=== PATIENT | female | born 1945 | race Caucasian/White ===

== ENCOUNTER → 2016-03-20 | Outpatient (CLI) | payer OTHER ==
--- NOTE | 2016-03-20 09:58 | MA ---
Diagnostic Digital Mammogram left Breast Clinical Indications: Followup asymmetry and possible architectural distortion outer left breast. Technique: Compression was obtained in CC, XCCL, and 90-degree lateral views of the left breast. Thi s examination is processed by the [employer] computer-aided detection system. Comparison: February 29, 2016; November 21, 2012; and studies dating back to September 19, 2007 Breast density: C; The breasts are heterogeneously dense, which may obscure small masses. Findings: CAD was reviewed. The density of concern appears to represent normal overlapping breast parenchymal tissue. No signifi cant abnormality seen. Impression: Benign findings. BI-RADS 2. These findings were communicated with the patient. Recommendation: Routine annual mammography is recommended in one year. Dense mammographic pattern limits the sensitivity of mammography in this patient. If there is a clini bernabe palpable abnormality, recommend additional imaging with ultrasound, if clinically indicated. [facility] will send a result letter to the patient. Negative mammography should not preclude additional workup of a clinically suspicious finding.
== END ==
LOC: BRMIMAGING 09:20
PROVIDERS: ATTEND Internal Medicine Hematology & Oncology
DX: R92.8 Other abnormal and inconclusive findings on diagnostic imaging of breast (principal); C90.01 Multiple myeloma in remission
CPT/HCPCS: G0206

== ENCOUNTER → 2017-01-11 | Outpatient (CLI) | payer OTHER ==
[~2017-01-11] MED LIST: ACETAMINOPHEN 325 MG TAB PO ONE; diphenhydrAMINE 25 MG CAP PO ONE
== END ==
LOC: FOBOP 10:10
PROVIDERS: ATTEND Internal Medicine Hematology & Oncology
PROC: 30233R1 Transfusion of Nonautologous Platelets into Peripheral Vein, Percutaneous Approach (ICD-10-PCS; principal; 2017-01-11)
DX: C90.00 Multiple myeloma not having achieved remission (principal)
CPT/HCPCS: 36430; Q9988

== ENCOUNTER 2017-01-19 19:31 | Outpatient (CLI) | payer OTHER ==
[2017-01-19] MEDS ORDERED: NS 100 ML BAG (MINI-BAG) IV ONE (19:52)
== END 2017-01-19 20:25 | disposition home or self-care (01) ==
LOC: FOBOP 19:31
PROVIDERS: ATTEND Internal Medicine Hematology & Oncology
PROC: 30243R1 Transfusion of Nonautologous Platelets into Central Vein, Percutaneous Approach (ICD-10-PCS; principal; 2017-01-19)
DX: C90.00 Multiple myeloma not having achieved remission (principal)
CPT/HCPCS: 36430; P9037; 86905-90; 99001-90

== ENCOUNTER 2017-01-23 16:21 | Outpatient (CLI) | payer OTHER ==
[2017-01-23] MEDS: ACETAMINOPHEN 325 MG TAB PO ONE (16:46)
[2017-01-23] MEDS: diphenhydrAMINE 25 MG CAP PO ONE (16:47)
== END 2017-01-23 17:35 | disposition home or self-care (01) ==
LOC: FOBOP 16:21
PROVIDERS: ATTEND Internal Medicine Hematology & Oncology
PROC: 30233R1 Transfusion of Nonautologous Platelets into Peripheral Vein, Percutaneous Approach (ICD-10-PCS; principal; 2017-01-23)
DX: C90.00 Multiple myeloma not having achieved remission (principal); D69.6 Thrombocytopenia, unspecified; E78.00 Pure hypercholesterolemia, unspecified; I82.4Z9 Acute embolism and thrombosis of unspecified deep veins of unspecified distal lower extremity
CPT/HCPCS: 36430; P9037

== ENCOUNTER 2017-01-26 16:19 | Outpatient (CLI) | payer OTHER | END 2017-01-26 18:00 | disposition home or self-care (01) | LOC: FOBOP 16:19 | PROVIDERS: ATTEND Internal Medicine Hematology & Oncology | PROC: 30233N1 Transfusion of Nonautologous Red Blood Cells into Peripheral Vein, Percutaneous Approach (ICD-10-PCS; principal; 2017-01-26) | DX: C90.00 Multiple myeloma not having achieved remission (principal) | CPT/HCPCS: 36430; Q9988 ==

== ENCOUNTER 2017-01-30 17:54 | Outpatient (CLI) | payer OTHER ==
[2017-01-30] MEDS ORDERED: ACETAMINOPHEN 325 MG TAB PO ONE (18:15)
[2017-01-30] MEDS ORDERED: diphenhydrAMINE 25 MG CAP PO ONE (18:15)
[2017-01-30 18:48] VITALS: BP 93/58; PULSE 75; RESP 16; TEMP 98.4; O2SAT 99
== END 2017-01-30 20:05 | disposition home or self-care (01) ==
LOC: FOBOP 17:54
PROVIDERS: ATTEND Internal Medicine Hematology & Oncology
PROC: 30233R1 Transfusion of Nonautologous Platelets into Peripheral Vein, Percutaneous Approach (ICD-10-PCS; principal; 2017-01-30)
DX: C90.00 Multiple myeloma not having achieved remission (principal); D69.6 Thrombocytopenia, unspecified; E78.00 Pure hypercholesterolemia, unspecified; I82.409 Acute embolism and thrombosis of unspecified deep veins of unspecified lower extremity
CPT/HCPCS: 36430; P9037

== ENCOUNTER 2017-02-02 16:55 | Outpatient (CLI) | payer OTHER ==
[2017-02-02] MEDS ORDERED: ACETAMINOPHEN 325 MG TAB PO ONE (17:15)
[2017-02-02] MEDS ORDERED: diphenhydrAMINE 25 MG CAP PO ONE (17:15)
== END 2017-02-02 18:55 | disposition home or self-care (01) ==
LOC: FOBOP 16:55
PROVIDERS: ATTEND Internal Medicine Hematology & Oncology
PROC: 30233R1 Transfusion of Nonautologous Platelets into Peripheral Vein, Percutaneous Approach (ICD-10-PCS; principal; 2017-02-02)
DX: C90.00 Multiple myeloma not having achieved remission (principal)
CPT/HCPCS: 36430; Q9988

== ENCOUNTER 2017-02-18 12:04 | Observation (INO) | payer OTHER ==
--- NOTE | 2017-02-18 12:12 | EDPHY ---
H & P Time Seen by Provider: 02/18/17 12:11 HPI/ROS: CHIEF COMPLAINT: Referred to ED for thrombocytopenia HISTORY OF PRESENT ILLNESS: The patient presents emergency department at the request of her oncologist for evaluation of thrombocytopenia. She has a history of multiple myeloma. The patient does require occasional platelet transfusions. She is status post stem cell transplant. She is scheduled to undergo an elective port placement tomorrow by Dr. Bennett. The patient reportedly had a platelet count of less than 5000 noted earlier today. The patient denies any symptoms of active bleeding. She does report chronic bruising. The patient denies fever, cough or congestion. The patient is scheduled to get a daily dose of Decadron today. The patient is chronically on Coumadin which she has been off for the past week. She has been using Lovenox daily. REVIEW OF SYSTEMS: A comprehensive 10 point review of systems is otherwise negative aside from elements mentioned in the history of present illness. Source: Patient Exam Limitations: No limitations - Personal History Tetanus Vaccine Date: less than 5 years - Medical/Surgical History Hx Asthma: No Hx Chronic Respiratory Disease: No Hx Diabetes: No Hx Cardiac Disease: No Hx Renal Disease: No Hx Cirrhosis: No Hx Alcoholism: No Hx HIV/AIDS: No Hx Splenectomy or Spleen Trauma: No Other PMH: multiple myloma, PE (1994 and 1996), gallbladder out feb 2014, rotator cuff surgery. FACTOR FIVE LEIDEN - Social History Smoking Status: Never smoked - Physical Exam Exam: General Appearance: Alert, no distress Eyes: Pupils equal and round no pallor or injection ENT, Mouth: Mucous membranes moist Respiratory: There are no retractions, lungs are clear to auscultation Cardiovascular: Regular rate and rhythm Gastrointestinal: Abdomen is soft and nontender, no masses, bowel sounds normal Neurological: A&O, normal motor function, normal sensory exam, normal cranial nerves Skin: Areas of ecchymosis of varying age Musculoskeletal: Neck is supple nontender Extremities: symmetrical, full range of motion Constitutional: Initial Vital Signs Temperature (C) 36.4 C 02/18/17 12:18 Heart Rate 90 02/18/17 12:18 Respiratory Rate 16 02/18/17 12:18 Blood Pressure 117/78 02/18/17 12:18 O2 Sat (%) 99 02/18/17 12:18 O2 Delivery Mode Room Air Allergies/Adverse Reactions: No Known Allergies Allergy (Unverified 03/27/09 19:56) Home Medications: Medication Instructions Recorded Acetaminophen [Tylenol 325mg (*)] 325 mg PO Q6 PRN 02/18/17 Acyclovir [Zovirax 400 mg (*)] 400 mg PO BID 02/18/17 Cholecalciferol Vit D3 [Vitamin D3 1,000 units PO DAILY 02/18/17 (*)] Dexamethasone [Decadron 4 MG (*)] 40 mg PO LOWE 02/18/17 Warfarin Sodium [Coumadin 1MG (*)] 1 mg PO SUMOTUWETHFR@16 02/18/17 Warfarin Sodium [Coumadin 5MG (*)] 5 mg PO SUMOTUTHFRSA@16 02/18/17 Warfarin Sodium [Coumadin 5MG (*)] 5 mg PO WE@02/18/17 Medical Decision Making ED Course/Re-evaluation: I discussed the patient with Dr. Manuel Alejo. The patient will be transfused 1 irradiated unit of platelets. If the patient's platelet count continues to be below 50,000 she will need an additional 1 U of irradiated platelets. The patient will be admitted to the hospital for these transfusions today. She is scheduled to undergo port placement tomorrow. Dr. Bennett be notified of the patient's admission to the hospital. Differential Diagnosis: Differential diagnosis considered includes critical anemia, thrombocytopenia, hemorrhage - Data Points Laboratory Results: Laboratory Results 02/18/17 12:50 02/18/17 02/18/17 12:50 12:50 WBC 2.77 10^3/uL L 10^3/uL (3.80-9.50) RBC 3.20 10^6/uL L 10^6/uL (4.18-5.33) Hgb 10.3 g/dL L g/dL (12.6-16.3) Hct 29.6 % L % (38.0-47.0) MCV 92.5 fL fL (81.5-99.8) MCH 32.2 pg pg (27.9-34.1) MCHC 34.8 g/dL g/dL (32.4-36.7) RDW 14.6 % % (11.5-15.2) Plt Count 4 10^3/uL L* 10^3/uL (150-400) MPV 10.3 fL fL (8.7-11.7) Neut % (Auto) 59.2 % % (39.3-74.2) Lymph % (Auto) 25.3 % % (15.0-45.0) [place] % (Auto) 13.7 % H % (4.5-13.0) Eos % (Auto) 0.7 % % (0.6-7.6) Baso % (Auto) 0.4 % % (0.3-1.7) Nucleat RBC Rel Count 0.0 % % (0.0-0.2) Absolute Neuts (auto) 1.64 10^3/uL L 10^3/uL (1.70-6.50) Absolute Lymphs (auto) 0.70 10^3/uL L 10^3/uL (1.00-3.00) Absolute Monos (auto) 0.38 10^3/uL 10^3/uL (0.30-0.80) Absolute Eos (auto) 0.02 10^3/uL L 10^3/uL (0.03-0.40) Absolute Basos (auto) 0.01 10^3/uL L 10^3/uL (0.02-0.10) Absolute Nucleated RBC 0.00 10^3/uL 10^3/uL (0-0.01) Immature Gran % 0.7 % % (0.0-1.1) Immature Gran # 0.02 10^3/uL 10^3/uL (0.00-0.10) Platelet Estimate Pending Smear Review By Pending Sodium Pending Potassium Pending Chloride Pending Carbon Dioxide Pending Anion Gap Pending BUN Pending Creatinine Pending Estimated GFR Pending Glucose Pending Calcium Pending Departure - Departure Disposition: [facility] Inpatient Acute Clinical Impression: Thrombocytopenia, Multiple myeloma Condition: Fair
[2017-02-18 13:07] LABS: % IMMATURE GRANULYOCYTES 0.7 % (0.0-1.1); ABSOLUTE IMMATURE GRANULOCYTES 0.02 10^3/uL (0.00-0.10); ADD DIFF? NO; ADD MORPH? NO; ADD SCAN? NO; ATYPICAL LYMPHOCYTE FLAG 0 (0-99); FRAGMENT RBC FLAG 0 (0-99); HEMATOCRIT 29.6 % (38.0-47.0); HEMOGLOBIN 10.3 g/dL (12.6-16.3); LEFT SHIFT FLG 0 (0-99); LIPEMIA HEMOLYSIS FLAG 90 (0-99); MEAN CELL HEMOGLOBIN 32.2 pg (27.9-34.1); MEAN CELL HEMOGLOBIN CONCENTR. 34.8 g/dL (32.4-36.7); MEAN CELL VOLUME 92.5 fL (81.5-99.8); MEAN PLATELET VOLUME 10.3 fL (8.7-11.7); PLATELET CLUMPS FLAG 0 (0-99); RED CELL DISTRIBUTION WIDTH 14.6 % (11.5-15.2)
[2017-02-18 13:11] LABS: PLATELET COUNT 4 10^3/uL (150-400)
[2017-02-18] MEDS ORDERED: ONDANSETRON 4 MG/2 ML VIAL IVP PRN (13:35)
[2017-02-18] MEDS ORDERED: ONDANSETRON DISINTEGRATING 4 MG TAB PO PRN (13:35)
[2017-02-18] MEDS ORDERED: ACETAMINOPHEN 325 MG TAB PO PRN (13:35)
[2017-02-18] MEDS ORDERED: DEXAMETHASONE 4 MG TAB PO SCH (13:45)
[2017-02-18 13:47] LABS: ANION GAP 15 mEq/L (8-16); CALCIUM 9.4 mg/dL (8.5-10.4); CARBON DIOXIDE 21 mEq/l (22-31); CHLORIDE 107 mEq/L (97-110); CREATININE 1.2 mg/dL (0.6-1.0); GLOMERULAR FILTRATION RATE 45; GLUCOSE 101 mg/dL (70-100); POTASSIUM 3.6 mEq/L (3.5-5.2); SODIUM 143 mEq/L (134-144)
[2017-02-18 14:20] LABS: PLATELET ESTIMATE DECREASED (ADEQ)
--- NOTE | 2017-02-18 15:54 | PDGENHP ---
History and Physical - Chief Complaint low platelets - History of Present Illness 71 yo female with h/o multiple myeloma presents to ED due to low platelets. She is scheduled to have a PORT placed tomorrow and had blood work today in preparation for that. Her platelet count is found to be 4K and is she admitted for transfusion in preparation for PORT. She denies any bleeding. No fevers/ chills. No CP, SOB, abdominal pain, N/V/D. History Information - Allergies/Home Medication List Allergies/Adverse Reactions: No Known Allergies Allergy (Unverified 03/27/09 19:56) Home Medications: Acetaminophen [Tylenol 325mg (*)] 325 mg PO Q6 PRN 02/18/17 [Last Taken Unknown] Acyclovir [Zovirax 400 mg (*)] 400 mg PO BID 02/18/17 [Last Taken 02/18/17] Cholecalciferol Vit D3 [Vitamin D3 (*)] 1,000 units PO DAILY 02/18/17 [Last Taken 02/18/17] Dexamethasone [Decadron 4 MG (*)] 40 mg PO LOWE 02/18/17 [Last Taken 02/11/17] Warfarin Sodium [Coumadin 1MG (*)] 1 mg PO SUMOTUWETHFR@16 02/18/17 [Last Taken 02/11/17] Warfarin Sodium [Coumadin 5MG (*)] 5 mg PO SUMOTUTHFRSA@16 02/18/17 [Last Taken 02/11/17] Warfarin Sodium [Coumadin 5MG (*)] 5 mg PO WE@02/18/17 [Last Taken 02/07/17] I have personally reviewed and updated: family history, medical history, social history, surgical history - Past Medical History pulmonary embolism Additional medical history: Multiple myeloma. Factor V Leiden heterozygote. PE in 1994 and 1996. Chronic anticoagulation, currently held. Thrombocytopenia requiring repeat transfusions - Surgical History Reports: cholecystectomy Additional surgical history: rotator cuff surgery, hand surgery - Family History Additional family history: Mom with h/o blood clots. 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 . Review of Systems Review of Systems: ROS: 10pt was reviewed & negative except for what was stated in HPI & below Physical Exam Physical Exam: Temp Pulse Resp BP Pulse Ox 36.9 C 93 18 116/68 98 02/18/17 15:44 02/18/17 15:44 02/18/17 15:44 02/18/17 13:57 02/18/17 15:44 Constitutional: no apparent distress Eyes: PERRL Ears, Nose, Mouth, Throat: moist mucous membranes Cardiovascular: regular rate and rhythym, no murmur, rub, or gallop Respiratory: no respiratory distress, clear to auscultation Gastrointestinal: normoactive bowel sounds, soft, non-tender abdomen Skin: warm Musculoskeletal: full muscle strength Neurologic: AAOx3 Psychiatric: interacting appropriately Lab Data & Imaging Review 02/18/17 12:50 02/18/17 12:50 WBC 2.77 10^3/uL (3.80-9.50) L 02/18/17 12:50 RBC 3.20 10^6/uL (4.18-5.33) L 02/18/17 12:50 Hgb 10.3 g/dL (12.6-16.3) L 02/18/17 12:50 Hct 29.6 % (38.0-47.0) L 02/18/17 12:50 MCV 92.5 fL (81.5-99.8) 02/18/17 12:50 MCH 32.2 pg (27.9-34.1) 02/18/17 12:50 MCHC 34.8 g/dL (32.4-36.7) 02/18/17 12:50 RDW 14.6 % (11.5-15.2) 02/18/17 12:50 Plt Count 4 10^3/uL (150-400) L* 02/18/17 12:50 MPV 10.3 fL (8.7-11.7) 02/18/17 12:50 Neut % (Auto) 59.2 % (39.3-74.2) 02/18/17 12:50 Lymph % (Auto) 25.3 % (15.0-45.0) 02/18/17 12:50 [place] % (Auto) 13.7 % (4.5-13.0) H 02/18/17 12:50 Eos % (Auto) 0.7 % (0.6-7.6) 02/18/17 12:50 Baso % (Auto) 0.4 % (0.3-1.7) 02/18/17 12:50 Nucleat RBC Rel Count 0.0 % (0.0-0.2) 02/18/17 12:50 Absolute Neuts (auto) 1.64 10^3/uL (1.70-6.50) L 02/18/17 12:50 Absolute Lymphs (auto) 0.70 10^3/uL (1.00-3.00) L 02/18/17 12:50 Absolute Monos (auto) 0.38 10^3/uL (0.30-0.80) 02/18/17 12:50 Absolute Eos (auto) 0.02 10^3/uL (0.03-0.40) L 02/18/17 12:50 Absolute Basos (auto) 0.01 10^3/uL (0.02-0.10) L 02/18/17 12:50 Absolute Nucleated RBC 0.00 10^3/uL (0-0.01) 02/18/17 12:50 Immature Gran % 0.7 % (0.0-1.1) 02/18/17 12:50 Immature Gran # 0.02 10^3/uL (0.00-0.10) 02/18/17 12:50 Platelet Estimate DECREASED (ADEQ) L 02/18/17 12:50 Sodium 143 mEq/L (134-144) 02/18/17 12:50 Potassium 3.6 mEq/L (3.5-5.2) 02/18/17 12:50 Chloride 107 mEq/L (97-110) 02/18/17 12:50 Carbon Dioxide 21 mEq/l (22-31) L 02/18/17 12:50 Anion Gap 15 mEq/L (8-16) 02/18/17 12:50 BUN 13 mg/dL (7-23) 02/18/17 12:50 Creatinine 1.2 mg/dL (0.6-1.0) H 02/18/17 12:50 Estimated GFR 45 02/18/17 12:50 Glucose 101 mg/dL (70-100) H 02/18/17 12:50 Calcium 9.4 mg/dL (8.5-10.4) 02/18/17 12:50 Patient ABO/Rh A POSITIVE 02/18/17 11:13 Assessment & Plan Assessment: Multiple myeloma (Acute) - Followed by Osiris Mcclain. Plans for PORT tomorrow, need plts >50K. Check INR. NPO after midnight. Thrombocytopenia (Acute) - No e/o bleeding. 1 u irradiated platelets now and check plt count at 1800. If <50K, will need additional 1 u platelets. Goal is plt count >50 K by am. H/O PE x2 in the - heterozygous FVL. Coumadin held and pt had been taking Lovenox shots at home. This is also held due to profoundly low platelets. Resume Lovenox when plts >50K. CKD - Cr at baseline Full code Dispo - obs
[2017-02-18 17:48] LABS: INR 1.01 (0.83-1.16); PROTIME(PATIENT) 13.5 SEC (12.0-15.0)
[2017-02-18 17:51] LABS: PLATELET COUNT 37 10^3/uL (150-400)
[2017-02-18 18:08] LABS: PLATELET ESTIMATE DECREASED (ADEQ)
[2017-02-18] MEDS: ACYCLOVIR 400 MG TAB PO SCH (20:36)
[2017-02-19 04:56] LABS: % IMMATURE GRANULYOCYTES 0.7 % (0.0-1.1); ABSOLUTE IMMATURE GRANULOCYTES 0.02 10^3/uL (0.00-0.10); ADD DIFF? NO; ADD MORPH? NO; ADD SCAN? NO; ATYPICAL LYMPHOCYTE FLAG 0 (0-99); FRAGMENT RBC FLAG 0 (0-99); HEMOGLOBIN 9.4 g/dL (12.6-16.3); LEFT SHIFT FLG 0 (0-99); LIPEMIA HEMOLYSIS FLAG 90 (0-99); MEAN CELL HEMOGLOBIN 31.6 pg (27.9-34.1); MEAN CELL HEMOGLOBIN CONCENTR. 34.8 g/dL (32.4-36.7); MEAN CELL VOLUME 90.9 fL (81.5-99.8); MEAN PLATELET VOLUME 9.8 fL (8.7-11.7); PLATELET CLUMPS FLAG 0 (0-99); RED BLOOD CELL COUNT 2.97 10^6/uL (4.18-5.33); RED CELL DISTRIBUTION WIDTH 14.4 % (11.5-15.2)
[2017-02-19 05:05] LABS: PLATELET COUNT 20 10^3/uL (150-400)
[2017-02-19 05:43] LABS: PLATELET ESTIMATE DECREASED (ADEQ)
[2017-02-19] MEDS ORDERED: BUPIVACAINE 0.25% 30 ML SDV ONE (08:06)
[2017-02-19] MEDS ORDERED: LR 1,000 ML IV ONE (08:47)
[2017-02-19] MEDS ORDERED: MIDAZOLAM 2 MG/2 ML VIAL IVP ONE (09:26)
[2017-02-19] MEDS ORDERED: ceFAZolin 2 GM/SWFI 2 GM/20 ML SYR IVP ONE (09:26)
--- NOTE | 2017-02-19 09:26 | PDHPUP ---
History & Physical Update H&P update statement: This history and physical update is based on an assessment of the patient which was completed after admission or registration (within 24 hours), but prior to the surgery/procedure. H&P update: H&P reviewed & patient examined, no change in patient's condition since H&P completed
--- NOTE | 2017-02-19 09:28 | PDANEPAE ---
ANE History of Present Illness multiple myeloma ANE Past Medical History - Cardiovascular History Hx Hypertension: No Hx Arrhythmias: No Hx Chest Pain: No Hx Coronary Artery / Peripheral Vascular Disease: No Hx CHF / Valvular Disease: No Hx Palpitations: No - Pulmonary History Hx COPD: No Hx Asthma/Reactive Airway Disease: No Hx Recent Upper Respiratory Infection: No Hx Oxygen in Use at Home: No Hx Sleep Apnea: No Sleep Apnea Screening Result - Last Documented: Negative - Neurologic History Hx Cerebrovascular Accident: No Hx Seizures: No Hx Dementia: No - Endocrine History Hx Diabetes: No Hypothyroid: No Hyperthyroid: No Obesity: no - Renal History Hx Renal Disorders: No - Liver History Hx Hepatic Disorders: No - Neurological & Psychiatric Hx Hx Neurological and Psychiatric Disorders: No - Cancer History Hx Cancer: Yes Cancer History Comment: MULTIPLE MYLOMA - Congenital Disorder History Hx Congenital Disorders: Yes Congenital History Comment: FACTOR 5 LEIDEN MUTATION - GI History GERD: no Hx Gastrointestinal Disorders: No - Chronic Pain History Chronic Pain: No - Surgical History Prior Surgeries: ROTATOR CUFF, SHYANNE,KNEE SURG HAND SURG ANE Review of Systems Review of Systems: - Exercise capacity METS (RN): 5 METS ANE Patient History - Allergies Allergies/Adverse Reactions: No Known Allergies Allergy (Unverified 03/27/09 19:56) - Home Medications Home Medications: Acetaminophen [Tylenol 325mg (*)] 325 mg PO Q6 PRN 02/18/17 [Last Taken Unknown] Acyclovir [Zovirax 400 mg (*)] 400 mg PO BID 02/18/17 [Last Taken 02/18/17] Cholecalciferol Vit D3 [Vitamin D3 (*)] 1,000 units PO DAILY 02/18/17 [Last Taken 02/18/17] Dexamethasone [Decadron 4 MG (*)] 40 mg PO LOWE 02/18/17 [Last Taken 02/11/17] Warfarin Sodium [Coumadin 1MG (*)] 1 mg PO SUMOTUWETHFR@16 02/18/17 [Last Taken 02/11/17] Warfarin Sodium [Coumadin 5MG (*)] 5 mg PO SUMOTUTHFRSA@16 02/18/17 [Last Taken 02/11/17] Warfarin Sodium [Coumadin 5MG (*)] 5 mg PO WE@16 02/18/17 [Last Taken 02/07/17] - NPO status NPO Since - Liquids (Date): 02/19/17 NPO Since - Liquids (Time): 00:00 NPO Since - Solids (Date): 02/18/17 NPO Since - Solids (Time): 20:00 - Anes Hx Anes Hx: no prior problems - Smoking Hx Smoking Status: Never smoked - Alcohol Use Alcohol Use: None - Family Anes Hx Family Anes Hx: none Family Hx Anesthesia Complications: NONE ANE Labs/Vital Signs - Labs Result Diagrams: 02/19/17 07:30 02/18/17 12:50 - Vital Signs Blood Pressure: 111/99 Heart Rate: 88 Respiratory Rate: 17 O2 Sat (%): 97 Height: 160.02 cm Weight: 49.1 kg ANE Physical Exam - Airway Neck exam: FROM Mallampati Score: Class 1 Mouth exam: normal dental/mouth exam - Pulmonary Pulmonary: no respiratory distress, no rales or rhonchi, clear to auscultation - Cardiovascular Cardiovascular: regular rate and rhythym, systolic murmur - ASA Status ASA Status: II (III/ NATALY) ANE Anesthesia Plan Anesthesia Plan: GA w LMA
[2017-02-19] MEDS ORDERED: ACETAMINOPHEN 500 MG TAB PO PRN (10:03)
[2017-02-19] MEDS ORDERED: HYDROCODONE/APAP 5/325 TAB PO PRN (10:03)
[2017-02-19] MEDS ORDERED: LR 500 ML IV PRN (10:03)
[2017-02-19] MEDS ORDERED: NALOXONE HCL 0.4 MG/ML INJ IVP PRN (10:03)
[2017-02-19] MEDS ORDERED: OXYCODONE/APAP 5/325 TAB PO PRN (10:03)
[2017-02-19] MEDS ORDERED: ONDANSETRON 4 MG/2 ML VIAL IVP PRN (10:03)
[2017-02-19] MEDS ORDERED: fentaNYL 100 MCG/2 ML INJ IVP PRN (10:03)
[2017-02-19] MEDS ORDERED: PROMETHAZINE HCL 25 MG/ML INJ IVP PRN (10:03)
--- NOTE | 2017-02-19 10:30 | POSTOPPROG ---
Post Op Note Date of Operation: 02/19/17 Surgeon: Glenn Bennett Anesthesiologist: Gamaliel Anesthesia: LMA Pre-op Diagnosis: Multiple Myeloma Post-op Diagnosis: same Procedure: L IJ guided Infusaport placement with fluoro Findings: good placement Inf/Abcess present in the surg proc area at time of surgery?: No EBL: Minimal
--- NOTE | 2017-02-19 10:42 | POSTANESTH ---
Post Anesthetic Evaluation Cardiovascular Status: Normal, Stable Respiratory Status: Normal, Stable Level of Consciousness/Mental Status: Can Participate in Eval Pain Control: Adequate, Prn Tx Ordered Nausea/Vomiting Control: Adequate, Prn Tx Ordered Complications Possibly Related to Anesthesia: None Noted
[2017-02-19] MEDS: ACYCLOVIR 400 MG TAB PO SCH (12:39)
[2017-02-19 12:43] VITALS: BP 110/68; PULSE 87; RESP 17; TEMP 98; O2SAT 94
--- NOTE | 2017-02-19 13:22 | ASMTCMCOM ---
CM Note CM Note Notes: Patient had a Port placed and is scheduled to discharge home today with no additional Case management needs apparent at this time. Date Signed: 02/19/2017 01:21 PM Electronically Signed By:JAMES Browning
--- NOTE | 2017-02-19 13:46 | GOP ---
[f rep st] OPERATIVE REPORT DATE OF OPERATION: 02/19/2017 SURGEON: Glenn Bennett MD ANESTHESIA: General endotracheal provided by Beverley Alston DO. PREOPERATIVE DIAGNOSIS: Multiple myeloma. POSTOPERATIVE DIAGNOSIS: Multiple myeloma. PROCEDURE PERFORMED: Ultrasound-guided left internal jugular vascular access port placement with flu oroscopic guidance. FINDINGS: Successful cannulation of the left IJ with appropriate placement of port. SPECIMENS: None. ESTIMATED BLOOD LOSS: 10 cc. DESCRIPTION OF PROCEDURE: The patient was greeted in the preoperative suite. Once again, risks, sera efits, and alternatives were discussed. Consent was signed. She was then brought back to the operat sakshi suite, placed on the OR table in supine position. After all anesthesia machines, including SCDs, were on and functioning, a World Health Organization time-out was performed. After successful induc tion of anesthesia, the patient's left neck was prepped and draped in typical sterile fashion. I khurram ntified the left internal jugular vein using the ultrasound probe and successfully cannulated it thro ugh which I placed my guidewire over which I placed my peel-away sheath. Once successfully in, I cre ated a pocket approximately 2 fingerbreadths below the patient's left clavicle and tunneled the roger ter to my stick site. It was then placed through the peel-away catheter and successfully sized appro priately in the atriocaval junction. After successful sizing, I trimmed the catheter and attached th e port itself. It was then placed within the pocket. It both flowed and withdrew appropriately. It was appropriately heparin locked it was attached to the underlying chest wall with a single interrup gela Prolene suture medially. The pocket was then closed with 3-0 Vicryl and 4-0 Monocryl over which Dermabond was placed. Patient was then gently awoken and taken to the PACU in satisfactory condition . DRAINS: None. COUNTS: All counts were reported as correct x2. /[id number]/MODL
--- NOTE | 2017-02-20 04:58 | GDS ---
[f rep st] DISCHARGE SUMMARY DISCHARGE DIAGNOSES: 1. Multiple myeloma. 2. Thrombocytopenia. 3. History of pulmonary embolism. 4. Chronic anticoagulation, currently interrupted for port placement. 5. Status post port placement. 6. Chronic kidney disease, currently at baseline. CONSULTANTS: Dr. Glenn Bennett, General Surgery. PROCEDURES: Ultrasound-guided left internal jugular vascular access port placement with fluoroscopic guidance, February 19, 2017, by Dr. Glenn Bennett. HISTORY: For details, please see the history and physical dated February 18, 2017. In brief, the riya hansen is a 71-year-old female with history of multiple myeloma, currently under treatment by Dr. Do Mcclain, who was admitted to the hospital the evening before a planned port placement due to thrombocyt openia and need for platelet transfusion. HOSPITAL COURSE: Patient was admitted to the cancer care unit. Her platelets on arrival were 4000. She had no evidence of bleeding. She was given a total of 2 units of irradiated platelets and her p latelet count in the morning prior to her procedure was 51,000. She has recently interrupted her Cou madin dosing for her history of pulmonary embolism and heterozygous factor V Leiden for the port plac ement. She has been bridged with Lovenox, which was held yesterday. Now that her platelets are over 50,000, she will continue her Lovenox bridge and resume her Coumadin tomorrow. She is instructed to have an INR checked 2 days following her Coumadin dose tomorrow and she should stop the Lovenox once her INR is greater than 2. In addition, she has plans for followup at the [facility] ter for ongoing treatment for her multiple myeloma and we will continue to follow her blood counts an d transfuse as needed. DISPOSITION: Patient is discharged home in stable condition. FOLLOWUP: 1. Dr. Osiris Mcclain at the [facility]. 2. Dr. Glenn Bennett, General Surgery. 3. Dr. Marilyn Villalba, Primary Care. DISCHARGE MEDICATIONS: Please see [facility] [employer] for completed outpatient medication list. Patient will c ontinue all outpatient medications as previously prescribed, including warfarin with Lovenox bridge a s described above. There are no new medications on discharge. /[id number]/MODL
--- NOTE | 2017-02-20 18:27 | ASDISCHSUM ---
Discharge Information Plan Status:Home with No Needs Medically Cleared to Leave:02/18/2017 Discharge Date:02/19/2017 01:49 PM CM D/C Disposition:Home, Routine, Self-Care ADT D/C Disposition:Home, Routine, Self-Care Projected Discharge Date:02/19/2017 03:00 PM Transportation at D/C:Family Discharge Delay Reason: Follow-Up Date:02/19/2017 03:00 PM Discharge Slot: Final Diagnosis:Multiple Myeloma, Thrombocytopenia Placement Information Patient Contact Information Contact Name:TEJ Relationship: Address:[address] [place] [address] City:[place] Alternate Phone: State/Zip Code:[place] [address] Email: Financial Information Financial Class: Primary Plan Desc:MEDICARE OUTPATIENT Primary Plan Number:[id number] Secondary Plan Desc:[facility] PPO POS Secondary Plan Number:[id number] Assessment Information [facility] CM Progress Note CM Note CM Note Notes: Patient had a Port placed and is scheduled to discharge home today with no additional Case management needs apparent at this time. Date Signed: 02/19/2017 01:21 PM Electronically Signed By:JAMES Browning Intervention Information
== END 2017-02-19 13:49 | disposition home or self-care (01) ==
LOC: F1N 14:06
PROVIDERS: ADMIT Internal Medicine; ATTEND Internal Medicine
PROC: 02HV33Z Insertion of Infusion Device into Superior Vena Cava, Percutaneous Approach (ICD-10-PCS; principal; 2017-02-18)
PROC: 0JH63XZ Insertion of Tunneled Vascular Access Device into Chest Subcutaneous Tissue and Fascia, Percutaneous Approach (ICD-10-PCS; principal; 2017-02-18)
DX: C90.00 Multiple myeloma not having achieved remission (principal); D69.6 Thrombocytopenia, unspecified; D68.2 Hereditary deficiency of other clotting factors; N18.9 Chronic kidney disease, unspecified; Z86.711 Personal history of pulmonary embolism
CPT/HCPCS: 36571; 71010; C1788; G0378; J0171; J1642; P9037

== ENCOUNTER 2017-02-20 17:18 | Outpatient (CLI) | payer OTHER ==
[2017-02-20] MEDS ORDERED: ACETAMINOPHEN 325 MG TAB PO ONE (17:45)
== END 2017-02-20 19:00 | disposition home or self-care (01) ==
LOC: F1NOP 17:18
PROVIDERS: ATTEND Internal Medicine Hematology & Oncology
PROC: 30233R1 Transfusion of Nonautologous Platelets into Peripheral Vein, Percutaneous Approach (ICD-10-PCS; principal; 2017-02-20)
DX: C90.00 Multiple myeloma not having achieved remission (principal)
CPT/HCPCS: 36430; P9037; 82784-90; 86334-90

== ENCOUNTER 2017-02-23 15:32 | Outpatient (CLI) | payer OTHER ==
[2017-02-23] MEDS ORDERED: diphenhydrAMINE 25 MG CAP PO ONE (16:15)
[2017-02-23] MEDS ORDERED: ACETAMINOPHEN 325 MG TAB PO ONE (16:15)
[2017-02-23 16:42] VITALS: RESP 12
[2017-02-23 17:04] VITALS: BP 110/67; PULSE 85; TEMP 98.4; O2SAT 96
== END 2017-02-23 17:10 | disposition home or self-care (01) ==
LOC: FOBOP 15:32
PROVIDERS: ATTEND Internal Medicine Hematology & Oncology
PROC: 30233R1 Transfusion of Nonautologous Platelets into Peripheral Vein, Percutaneous Approach (ICD-10-PCS; principal; 2017-02-23)
DX: C90.00 Multiple myeloma not having achieved remission (principal)
CPT/HCPCS: 36430; J1642; Q9988

== ENCOUNTER 2017-02-26 16:05 | Outpatient (CLI) | payer OTHER ==
[2017-02-26] MEDS ORDERED: diphenhydrAMINE 25 MG CAP PO ONE (16:45)
[2017-02-26] MEDS ORDERED: ACETAMINOPHEN 325 MG TAB PO ONE (16:45)
== END 2017-02-26 17:30 | disposition home or self-care (01) ==
LOC: FOBOP 16:05
PROVIDERS: ATTEND Internal Medicine Hematology & Oncology
PROC: 30233R1 Transfusion of Nonautologous Platelets into Peripheral Vein, Percutaneous Approach (ICD-10-PCS; principal; 2017-02-26)
DX: C90.00 Multiple myeloma not having achieved remission (principal)
CPT/HCPCS: 36430; J1642; P9037; 99001-90

== ENCOUNTER → 2017-02-28 | Outpatient (CLI) | payer OTHER ==
[~2017-02-28] MED LIST changes: -ACETAMINOPHEN 325 MG TAB PO ONE; +IOPAMIDOL (ISOVUE-300) 100 ML BTL ONE; -diphenhydrAMINE 25 MG CAP PO ONE
== END ==
LOC: FIMAGING 11:33
PROVIDERS: ATTEND Physician Assistant
DX: R68.84 Jaw pain (principal); R20.0 Anesthesia of skin; C90.01 Multiple myeloma in remission
CPT/HCPCS: 70487; Q9967

== ENCOUNTER 2017-03-02 18:34 | Outpatient (CLI) | payer OTHER | END 2017-03-02 20:00 | disposition home or self-care (01) | LOC: FOBOP 18:34 | PROVIDERS: ATTEND Internal Medicine Hematology & Oncology | PROC: 30233R1 Transfusion of Nonautologous Platelets into Peripheral Vein, Percutaneous Approach (ICD-10-PCS; principal; 2017-03-02) | DX: C90.00 Multiple myeloma not having achieved remission (principal) | CPT/HCPCS: 36430; J1642; P9035 ==

== ENCOUNTER 2017-03-06 14:06 | Outpatient (CLI) | payer OTHER | END 2017-03-06 16:00 | disposition home or self-care (01) | LOC: FOBOP 14:06 | PROVIDERS: ATTEND Internal Medicine Hematology & Oncology | PROC: 30233R1 Transfusion of Nonautologous Platelets into Peripheral Vein, Percutaneous Approach (ICD-10-PCS; principal; 2017-03-06) | DX: C90.00 Multiple myeloma not having achieved remission (principal) | CPT/HCPCS: 36430; J1642; P9037; 82232-90; 82784-90; 86334-90 ==

== ENCOUNTER → 2017-03-09 | Outpatient (CLI) | payer OTHER ==
[2017-03-09 21:58] VITALS: BP 99/63; PULSE 106; RESP 16; TEMP 98.2; O2SAT 96
[2017-03-09 23:39] LABS: PLATELET COUNT 39 10^3/uL (150-400)
== END ==
LOC: F1NOP 20:58
PROVIDERS: ATTEND Internal Medicine Hematology & Oncology
PROC: 30233R1 Transfusion of Nonautologous Platelets into Peripheral Vein, Percutaneous Approach (ICD-10-PCS; principal; 2017-03-09)
DX: C90.00 Multiple myeloma not having achieved remission (principal)
CPT/HCPCS: 36430; P9037; 84166-90; 99001-90

== ENCOUNTER 2017-03-13 14:15 | Outpatient (CLI) | payer OTHER | END 2017-03-13 16:45 | disposition home or self-care (01) | LOC: FOBOP 14:15 → F1NOP 16:45 | PROVIDERS: ATTEND Internal Medicine Hematology & Oncology | PROC: 30233R1 Transfusion of Nonautologous Platelets into Peripheral Vein, Percutaneous Approach (ICD-10-PCS; principal; 2017-03-13) | DX: C90.00 Multiple myeloma not having achieved remission (principal) | CPT/HCPCS: J1642; P9037 ==

== ENCOUNTER 2017-03-16 17:19 | Outpatient (CLI) | payer OTHER | END 2017-03-16 18:12 | disposition home or self-care (01) | LOC: FOBOP 17:19 | PROVIDERS: ATTEND Internal Medicine Hematology & Oncology | PROC: 30233R1 Transfusion of Nonautologous Platelets into Peripheral Vein, Percutaneous Approach (ICD-10-PCS; principal; 2017-03-16) | DX: C90.00 Multiple myeloma not having achieved remission (principal) | CPT/HCPCS: J1642; P9073 ==

== ENCOUNTER → 2017-03-20 | Outpatient (CLI) | payer OTHER | LOC: F1NOP 14:38 | PROVIDERS: ATTEND Internal Medicine Hematology & Oncology | PROC: 30233R1 Transfusion of Nonautologous Platelets into Peripheral Vein, Percutaneous Approach (ICD-10-PCS; principal; 2017-03-20) | DX: C90.00 Multiple myeloma not having achieved remission (principal) | CPT/HCPCS: J1642; P9037; 99001-90 ==

== ENCOUNTER 2017-03-23 17:35 | Outpatient (CLI) | payer OTHER ==
[2017-03-23 18:00] VITALS: BP 98/52; PULSE 89; RESP 16; TEMP 98; O2SAT 97
[2017-03-23 20:56] LABS: PLATELET COUNT 25 10^3/uL (150-400)
== END 2017-03-23 20:45 | disposition home or self-care (01) ==
LOC: F1NOP 17:35
PROVIDERS: ATTEND Internal Medicine Hematology & Oncology
PROC: 30233R1 Transfusion of Nonautologous Platelets into Peripheral Vein, Percutaneous Approach (ICD-10-PCS; principal; 2017-03-23)
DX: C90.00 Multiple myeloma not having achieved remission (principal)
CPT/HCPCS: 36430; P9037; 99001-90

== ENCOUNTER 2017-03-27 16:43 | Outpatient (CLI) | payer OTHER ==
[2017-03-27 17:01] VITALS: BP 96/54; PULSE 91; RESP 17; TEMP 97.6; O2SAT 99
[2017-03-27 18:50] LABS: PLATELET COUNT 38 10^3/uL (150-400)
== END 2017-03-27 18:59 | disposition home or self-care (01) ==
LOC: FOBOP 16:43 → F1NOP 18:59
PROVIDERS: ATTEND Internal Medicine Hematology & Oncology
PROC: 30233R1 Transfusion of Nonautologous Platelets into Peripheral Vein, Percutaneous Approach (ICD-10-PCS; principal; 2017-03-27)
DX: C90.00 Multiple myeloma not having achieved remission (principal)
CPT/HCPCS: 36430; J1642; P9037; 99001-90

== ENCOUNTER → 2017-03-30 | Outpatient (CLI) | payer OTHER | LOC: FIMAGING 16:01 | PROVIDERS: ATTEND Nurse Practitioner | DX: S22.32XA Fracture of one rib, left side, initial encounter for closed fracture (principal); C90.00 Multiple myeloma not having achieved remission ==

== ENCOUNTER → 2017-03-31 | Outpatient (CLI) | payer OTHER ==
[~2017-03-31] MED LIST changes: +ACETAMINOPHEN 325 MG TAB PO ONE; -IOPAMIDOL (ISOVUE-300) 100 ML BTL ONE
[2017-03-31 13:02] VITALS: BP 98/60; PULSE 86; RESP 18; TEMP 98.4; O2SAT 98
== END ==
LOC: F1NOP 12:03
PROVIDERS: ATTEND Internal Medicine Hematology & Oncology
PROC: 30233R1 Transfusion of Nonautologous Platelets into Peripheral Vein, Percutaneous Approach (ICD-10-PCS; principal; 2017-03-31)
DX: C90.00 Multiple myeloma not having achieved remission (principal); Z45.2 Encounter for adjustment and management of vascular access device
CPT/HCPCS: J1642

== ENCOUNTER → 2017-04-03 | Outpatient (CLI) | payer OTHER ==
[2017-04-03 19:07] VITALS: RESP 16
[2017-04-03 19:08] VITALS: BP 108/65; PULSE 80; TEMP 98.1; O2SAT 96
== END ==
LOC: EEVIPCON 15:00 → FOBOP 15:48
PROVIDERS: ATTEND Internal Medicine Hematology & Oncology
PROC: 30233R1 Transfusion of Nonautologous Platelets into Peripheral Vein, Percutaneous Approach (ICD-10-PCS; principal; 2017-04-03)
DX: C90.00 Multiple myeloma not having achieved remission (principal); D69.6 Thrombocytopenia, unspecified; D64.81 Anemia due to antineoplastic chemotherapy; E78.00 Pure hypercholesterolemia, unspecified; I82.409 Acute embolism and thrombosis of unspecified deep veins of unspecified lower extremity; E86.0 Dehydration
CPT/HCPCS: 36430; J1642; P9037; 99001-90

== ENCOUNTER → 2017-04-07 | Outpatient (CLI) | payer OTHER | LOC: F1NOP 13:27 | PROVIDERS: ATTEND Internal Medicine Hematology & Oncology | PROC: 30233R1 Transfusion of Nonautologous Platelets into Peripheral Vein, Percutaneous Approach (ICD-10-PCS; principal; 2017-04-07) | DX: C90.00 Multiple myeloma not having achieved remission (principal) | CPT/HCPCS: 36430; P9016; P9037; P9040; 86850-90; 86870-90; 86905-90; 86922-90 ==

== ENCOUNTER → 2017-04-10 | Outpatient (CLI) | payer OTHER ==
[2017-04-10 18:46] VITALS: BP 92/56; PULSE 69; RESP 16; TEMP 98; O2SAT 97
== END ==
LOC: F1NOP 17:17
PROVIDERS: ATTEND Internal Medicine Hematology & Oncology
PROC: 30233R1 Transfusion of Nonautologous Platelets into Peripheral Vein, Percutaneous Approach (ICD-10-PCS; principal; 2017-04-10)
DX: C90.00 Multiple myeloma not having achieved remission (principal)
CPT/HCPCS: 36430; J1642

== ENCOUNTER → 2017-04-17 | Outpatient (CLI) | payer OTHER ==
[2017-04-17 18:37] VITALS: RESP 16
[2017-04-17 19:43] VITALS: BP 94/56; PULSE 69; TEMP 98.2; O2SAT 97
== END ==
LOC: F1NOP 17:47
PROVIDERS: ATTEND Internal Medicine Hematology & Oncology
PROC: 30233R1 Transfusion of Nonautologous Platelets into Peripheral Vein, Percutaneous Approach (ICD-10-PCS; principal; 2017-04-17)
DX: C90.00 Multiple myeloma not having achieved remission (principal)
CPT/HCPCS: J1642; P9037

== ENCOUNTER 2017-04-21 20:16 | Inpatient (IN) | payer OTHER ==
[2017-04-21] MEDS ORDERED: NS 1,000 ML IV ONE (21:15)
[2017-04-21] MEDS ORDERED: IOPAMIDOL (ISOVUE 370) 100 ML BTL IV ONE (21:23)
[2017-04-21 21:26] LABS: INR 1.12 (0.83-1.16); PROTIME(PATIENT) 14.6 SEC (12.0-15.0)
--- NOTE | 2017-04-21 21:27 | EDPHY ---
H & P Stated Complaint: SENT OVER BY ONC, POSSIBLE PE DUE TO SOB/ RIGHT RIB PAIN AND HX Time Seen by Provider: 04/21/17 21:15 HPI/ROS: CHIEF COMPLAINT: Bilateral rib pain HISTORY OF PRESENT ILLNESS: Patient is a 71-year-old female who currently being treated for multiple myeloma also with a history of DVT and PE and factor 5 Leiden. She was taken off of her Coumadin 6 months ago for low platelets and bleeding risk. Over last day she has developed pain in both the right and left anterior rib region. No fever. No cough. No chest pain. Her pain is worse deep inspiration. No leg pain or swelling. REVIEW OF SYSTEMS: Constitutional: denies: chills, fever, recent illness, recent injury EENTM: denies: blurred vision, double vision, nose congestion Respiratory: See HPI Cardiac: denies: chest pain, irregular heart rate, lightheadedness, palpitations Gastrointestinal/Abdominal: denies: abdominal pain, diarrhea, nausea, vomiting, blood streaked stools Genitourinary: denies: dysuria, frequency, hematuria, pain Musculoskeletal: denies: joint pain, muscle pain Skin: denies: lesions, rash, jaundice, bruising Neurological: denies: headache, numbness, paresthesia, tingling, dizziness, weakness Hematologic/Lymphatic: denies: blood clots, easy bleeding, easy bruising Immunologic/allergic: denies: HIV/AIDS, transplant EXAM: GENERAL: Well-appearing, well-nourished and in no acute distress. HEAD: Atraumatic, normocephalic. EYES: Pupils equal round and reactive to light, extraocular movements intact, sclera anicteric, conjunctiva are normal. ENT: TMs normal, nares patent, oropharynx clear without exudates. Moist mucous membranes. NECK: Normal range of motion, supple without lymphadenopathy or JVD. LUNGS: Right lower lobe rhonchi HEART: Regular rate and rhythm without murmurs, rubs or gallops. ABDOMEN: Soft, nontender, normoactive bowel sounds. No guarding, no rebound. No masses appreciated. BACK: No CVA tenderness, no spinal tenderness, step-offs or deformities EXTREMITIES: Normal range of motion, no pitting or edema. No clubbing or cyanosis. NEUROLOGICAL: Cranial nerves II through XII grossly intact. Normal speech, normal gait. 5/5 strength, normal movement in all extremities, normal sensation PSYCH: Normal mood, normal affect. SKIN: Warm, dry, normal turgor, no visible rashes or lesions. Source: Patient Exam Limitations: No limitations - Personal History Current Tetanus/Diphtheria Vaccine: Yes Tetanus Vaccine Date: less than 5 years - Medical/Surgical History Hx Asthma: No Hx Chronic Respiratory Disease: No Hx Diabetes: No Hx Cardiac Disease: No Hx Renal Disease: No Hx Cirrhosis: No Hx Alcoholism: No Hx HIV/AIDS: No Hx Splenectomy or Spleen Trauma: No Other PMH: multiple myloma, PE (1994 and 1996), gallbladder out feb 2014, rotator cuff surgery. FACTOR FIVE LEIDEN, stem cell transplant, port placement 02/25, DVT 2015 - Family History Significant Family History: No pertinent family hx - Social History Smoking Status: Never smoked Alcohol Use: Sober Constitutional: Initial Vital Signs Temperature (C) 36.7 C 04/21/17 20:23 Heart Rate 112 H 04/21/17 20:23 Respiratory Rate 28 H 04/21/17 20:23 Blood Pressure 117/65 04/21/17 20:23 O2 Sat (%) 92 04/21/17 20:23 O2 Delivery Mode Room Air Allergies/Adverse Reactions: No Known Allergies Allergy (Unverified 04/21/17 20:18) Home Medications: Medication Instructions Recorded Acyclovir [Zovirax 400 mg (*)] 400 mg PO BID 02/18/17 Cholecalciferol Vit D3 [Vitamin D3 1,000 units PO DAILY 02/18/17 (*)] Dexamethasone [Decadron 4 MG (*)] 28 mg PO MO 02/18/17 Gabapentin [Neurontin 300 MG (*)] 600 mg PO DAILY 04/22/17 LORazepam [Lorazepam] 1 mg PO HS PRN 04/22/17 Lenalidomide [Revlimid] 10 mg PO AD 04/22/17 morphINE IR [morphINE IR 15 mg (*)] 15 mg PO DAILY PRN 04/22/17 Medical Decision Making - Diagnostics Imaging: Discussed imaging studies w/ call worker person Radiologist ED Course/Re-evaluation: I discussed the case with Dr. Rod from Oncology. She requests admission to the hospitalist service. She agrees with 2 U of platelets and start heparin without a bolus. 10:20 p.m. I discussed the case with Dr. Rodriguez who will admit the medical service. Differential Diagnosis: Partial list of the Differential diagnosis considered include but were not limited to; P, pneumonia, infarction and although unlikely based on the history and physical exam, I also considered acute coronary disease. - Data Points Laboratory Results: Laboratory Results 04/21/17 20:55 04/21/17 20:55 04/21/17 22:18 Patient ABO/Rh Pending Rh Phenotype Pending Antibody Screen POSITIVE Antibody Identification UNDETERMINED Antibody ID Referred Pending Red Cell Ag Pheno DNA Pending ABRAM, IgG Interpret Pending ABRAM, Poly Interpret Pending ABRAM, Complement Interp Pending Crossmatch See Detail Crossmatch IS Only See Detail Medications Given: Acetaminophen (Tylenol) 650 mg PO Q4HRS PRN PRN Reason: Pain, Mild/Fever, Can Take PO Stop: 10/18/17 22:42 Last Admin: 04/23/17 14:37 Dose: 650 mg Acyclovir (Acyclovir) 400 mg PO BID CHATO Stop: 05/22/17 20:59 Last Admin: 04/23/17 09:18 Dose: 400 mg Cholecalciferol (Vitamin D) 1,000 units PO DAILY CHATO Stop: 10/20/17 08:59 Last Admin: 04/23/17 09:18 Dose: 1,000 units Gabapentin (Neurontin) 600 mg PO DAILY CHATO Stop: 10/20/17 08:59 Last Admin: 04/23/17 09:20 Dose: Not Given Heparin Sodium (Porcine) (Heparin 50 Units/Ml (Premix)) 500 mls @ 0 mls/hr IV CONT CHATO; Per Protocol PRN Reason: Protocol Stop: 10/18/17 22:59 Last Admin: 04/23/17 02:34 Dose: 500 mls Sodium Chloride (Ns) 1,000 mls @ 75 mls/hr IV CONT CHATO Stop: 10/18/17 22:44 Last Admin: 04/23/17 20:27 Dose: 1,000 mls Levofloxacin/Dextrose (Levaquin 750 Mg (Premix)) 150 mls @ 100 mls/hr IV Q2D@ 0900 CHATO PRN Reason: Protocol Stop: 05/22/17 18:59 Last Admin: 04/22/17 18:44 Dose: 150 mls Lorazepam (Ativan) 0.5 - 1 mg PO Q8HRS PRN PRN Reason: Anxiety, Able to Take PO Stop: 10/18/17 22:42 Last Admin: 04/22/17 00:40 Dose: 0.5 mg Lorazepam (Ativan) 1 mg PO HS PRN PRN Reason: Sleep/Insomnia/ANXIETY Stop: 10/19/17 17:58 Last Admin: 04/22/17 20:42 Dose: 1 mg Discontinued Medications Acetaminophen (Tylenol Rectal) 650 mg NV ONCE ONE Stop: 04/23/17 11:04 Last Admin: 04/23/17 14:38 Dose: Not Given Dexamethasone (Decadron) 28 mg PO MO CHATO Stop: 10/20/17 11:14 Last Admin: 04/23/17 14:37 Dose: 28 mg Diphenhydramine HCl (Benadryl) 25 mg PO ONCE ONE Stop: 04/23/17 11:02 Last Admin: 04/23/17 14:37 Dose: 25 mg Fentanyl (Sublimaze) 0 mcg IVP ONCALL PRN PRN Reason: Per provider during procedure Stop: 04/22/17 17:39 Last Admin: 04/22/17 17:05 Dose: 50 mcg Furosemide (Lasix Injection) 20 mg IVP ONCE ONE Stop: 04/23/17 11:04 Last Admin: 04/23/17 15:37 Dose: 20 mg Heparin Sodium (Porcine) (Heparin Injection) 0 unit IVP EDNOW ONE PRN Reason: Protocol Stop: 04/21/17 22:04 Last Admin: 04/22/17 00:42 Dose: Not Given Sodium Chloride (Ns) 1,000 mls @ 0 mls/hr IV EDNOW ONE; Wide Open PRN Reason: Protocol Stop: 04/21/17 21:16 Last Admin: 04/21/17 21:22 Dose: 1,000 mls Heparin Sodium (Porcine) (Heparin 50 Units/Ml (Premix)) 500 mls @ 0 mls/hr IV EDNOW ONE; Per Protocol PRN Reason: Protocol Stop: 04/21/17 22:04 Last Admin: 04/21/17 22:56 Dose: 500 mls Sodium Chloride (Ns) 1,000 mls @ 30 mls/hr IV CONT CHATO Stop: 10/19/17 16:44 Last Admin: 04/22/17 17:05 Dose: 1,000 mls Cefepime HCl 2 gm/ Sterile (Water) 12.5 mls @ 150 mls/hr IV Q8HRS CHATO PRN Reason: Protocol Stop: 05/22/17 18:17 Last Admin: 04/22/17 23:45 Dose: Not Given Midazolam HCl (Versed) 0 mg IVP ONCALL PRN PRN Reason: Per provider during procedure Stop: 04/22/17 17:39 Last Admin: 04/22/17 17:05 Dose: 1 mg Morphine Sulfate (Morphine) 5 mg IVP EDNOW ONE Stop: 04/21/17 21:26 Last Admin: 04/21/17 21:33 Dose: 5 mg Morphine Sulfate (Morphine) 1 - 2 mg IVP Q2HRS PRN PRN Reason: Pain, Severe Unable to Take PO Stop: 05/01/17 22:42 Last Admin: 04/22/17 09:35 Dose: 2 mg Morphine Sulfate (Morphine Ir) 15 mg PO Q4HRS PRN PRN Reason: Pain, Severe Able to Take PO Stop: 05/01/17 23:46 Last Admin: 04/22/17 20:43 Dose: 15 mg Departure - Departure Disposition: [facility] Inpatient Acute Clinical Impression: Thrombocytopenia Pulmonary embolism Qualifiers: Pulmonary embolism type: other Chronicity: acute Acute cor pulmonale presence: without acute cor pulmonale Qualified Code(s): I26.99 - Other pulmonary embolism without acute cor pulmonale Condition: Fair
[2017-04-21 21:28] LABS: PLATELET COUNT 10 10^3/uL (150-400)
[2017-04-21] MEDS ORDERED: HEPARIN/DEXTROSE 500 ML IV ONE (22:03)
[2017-04-21] MEDS ORDERED: HEPARIN 10,000 UNIT/10 ML MDV (1,000 UNIT/ML) IVP ONE ×2 (22:03→22:46)
[2017-04-21] MEDS ORDERED: PROMETHAZINE HCL 25 MG/ML INJ IVP PRN (22:43)
[2017-04-21] MEDS ORDERED: HYDROCODONE/APAP 5/325 TAB PO PRN (22:43)
[2017-04-21] MEDS ORDERED: ONDANSETRON 4 MG/2 ML VIAL IVP PRN (22:43)
[2017-04-21] MEDS ORDERED: LORazepam 0.5 MG TAB PO PRN (22:43)
--- NOTE | 2017-04-21 23:53 | PDGENHP ---
History and Physical - Chief Complaint SOB, right sided chest pain - History of Present Illness Source - patient provides history appears reliable. Case discussed with ED provider and EMR was reviewed. Patient's at bedside. HPI-this is a very pleasant 71-year-old female with past medical history significant for multiple myeloma and associated pancytopenia, receiving Revlimid infusions, factor 5 Leiden deficiency no longer on chronic anticoagulation x6 months due to thrombocytopenia and history of multiple PEs who presents with complaints of intermittent lateral chest and rib pain off an on for the last several weeks but more acutely in severity for 1 day. Patient also notes some increasing shortness of breath. She denies any cough rhinorrhea. No fevers. Patient's chest pain is worsened with inspiration. Patient denies any central or left-sided chest pain/pressure. She denies any increasing lower extremity edema or calf pain. Patient's pain is improved with taking shallow breaths and oxygen she has received since arrival to the emergency department. History Information - Allergies/Home Medication List Allergies/Adverse Reactions: No Known Allergies Allergy (Unverified 04/21/17 20:18) Home Medications: Acetaminophen [Tylenol 325mg (*)] 325 mg PO Q6 PRN 02/18/17 [Last Taken 16:00 1000mg] Acyclovir [Zovirax 400 mg (*)] 400 mg PO BID 02/18/17 [Last Taken 02/26/17] Cholecalciferol Vit D3 [Vitamin D3 (*)] 1,000 units PO DAILY 02/18/17 [Last Taken 02/26/17] Dexamethasone [Decadron 4 MG (*)] 10 mg PO LWOE 02/18/17 [Last Taken 1 Day Ago ~] Aranesp 04/21/17 [Last Taken Unknown] Daratumumab 04/21/17 [Last Taken Unknown] Gabapentin 04/21/17 [Last Taken Unknown] Morphine Sulfate 04/21/17 [Last Taken Unknown] I have personally reviewed and updated: family history, medical history, social history, surgical history - Past Medical History pulmonary embolism Additional medical history: Multiple myeloma. Factor V Leiden heterozygote. PE in 1994 and 1996. Chronic anticoagulation, held since latter part of 2017 for thrombocytopenia. Thrombocytopenia requiring repeat transfusions - Surgical History Reports: cholecystectomy Additional surgical history: rotator cuff surgery, hand surgery, stem cell transplant, right thumb, right knee, power port placement to left - Family History Additional family history: Mom with h/o blood clots. 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 . Cor status-full Review of Systems Review of Systems: ROS: 10pt was reviewed & negative except for what was stated in HPI & below Constitutional: Reports: other (Occasional night sweat). Denies: chills, fever EENMT: Denies: blurred vision, nose congestion, sore throat Cardiac: Reports: chest pain (Lateral chest wall pain right> left). Denies: palpitations Respiratory: Reports: shortness of breath. Denies: cough, wheezing Gastrointestinal: Reports: no symptoms Genitourinary: Reports: no symptoms Muscolosketal: Reports: no symptoms Skin: Reports: no symptoms Neurological: Reports: other (Bilateral lower extremity neuropathy). Denies: weakness Hematologic/Lymphatic: Reports: anemia, blood clots, easy bruising Physical Exam Physical Exam: Selected Entries 04/21/17 20:23 Blood Pressure Automatic Method Heart Rate 112 H Respiratory 28 H Rate O2 Sat (%) 92 Temperature (C) 36.7 C Blood Pressure 117/65 Mean Arterial 82 Pressure (MAP) O2 Delivery Room Air Mode Temperature Oral Source Temp Pulse Resp BP Pulse Ox 37.5 C 84 20 117/72 100 04/21/17 23:00 04/21/17 23:00 04/21/17 23:00 04/21/17 23:00 04/21/17 23:01 O2 (L/minute) 2 Constitutional: no apparent distress, not in pain, No unkempt Eyes: PERRL, anicteric sclera, EOMI, No scleral injection Ears, Nose, Mouth, Throat: moist mucous membranes, No oral thrush, No dry mucous membranes Cardiovascular: regular rate and rhythym, no murmur, rub, or gallop, No edema Peripheral Pulses: 1+: dorsalis-pedis (R), dorsalis-pedis (L) Respiratory: no respiratory distress, inspiratory crackles (Bibasilar right greater than left), No expiratory wheeze, No dullness to percussion Gastrointestinal: normoactive bowel sounds, soft, non-tender abdomen, no palpable masses, No tenderness, No distension Genitourinary: no bladder tenderness, No bridges in urethra Skin: warm, other (Pallor), No mottled, No rash Musculoskeletal: normal joint ROM (Patient able to move upper lower extremities without apparent distress), generalized weakness (Patient does require a little bit of assistance with sitting up) Neurologic: other (Grossly nonfocal exam.), No facial droop Psychiatric: interacting appropriately, not anxious, not encephalopathic, thought process linear Lab Data & Imaging Review 04/21/17 20:55 04/21/17 20:55 WBC 2.06 10^3/uL (3.80-9.50) L 04/21/17 20:55 RBC 2.92 10^6/uL (4.18-5.33) L 04/21/17 20:55 Hgb 9.0 g/dL (12.6-16.3) L 04/21/17 20:55 Hct 27.0 % (38.0-47.0) L 04/21/17 20:55 MCV 92.5 fL (81.5-99.8) 04/21/17 20:55 MCH 30.8 pg (27.9-34.1) 04/21/17 20:55 MCHC 33.3 g/dL (32.4-36.7) 04/21/17 20:55 RDW 16.1 % (11.5-15.2) H 04/21/17 20:55 Plt Count 10 10^3/uL (150-400) L* 04/21/17 20:55 MPV TNP 04/21/17 20:55 Neut % (Auto) Not Reported 04/21/17 20:55 Lymph % (Auto) Not Reported 04/21/17 20:55 Hanson % (Auto) Not Reported 04/21/17 20:55 Eos % (Auto) Not Reported 04/21/17 20:55 Baso % (Auto) Not Reported 04/21/17 20:55 Nucleat RBC Rel Count 1.0 % (0.0-0.2) H 04/21/17 20:55 Absolute Neuts (auto) Not Reported 04/21/17 20:55 Absolute Lymphs (auto) Not Reported 04/21/17 20:55 Absolute Monos (auto) Not Reported 04/21/17 20:55 Absolute Eos (auto) Not Reported 04/21/17 20:55 Absolute Basos (auto) Not Reported 04/21/17 20:55 Absolute Nucleated RBC 0.02 10^3/uL (0-0.01) H 04/21/17 20:55 Immature Gran % Not Reported 04/21/17 20:55 Seg Neutrophils % 39 % 04/21/17 20:55 Band Neutrophils % 15 % 04/21/17 20:55 Lymphocytes % 31 % 04/21/17 20:55 Monocytes % 15 % 04/21/17 20:55 Immature Gran # Not Reported 04/21/17 20:55 Absolute Seg Neuts 0.80 10^/uL (1.70-6.50) L 04/21/17 20:55 Absolute Band Neuts 0.31 10^3/uL (0.00-0.70) 04/21/17 20:55 Absolute Lymphocytes 0.64 10^3/uL (1.00-3.00) L 04/21/17 20:55 Absolute Monocytes 0.31 10^3/uL (0.30-0.80) 04/21/17 20:55 Nucleated RBCs 2 /100 WBC (0-0) H 04/21/17 20:55 Platelet Estimate DECREASED (ADEQ) L 04/21/17 20:55 Large Platelets PRESENT H 04/21/17 20:55 Polychromasia 1+ H 04/21/17 20:55 PT 14.6 SEC (12.0-15.0) 04/21/17 20:55 INR 1.12 (0.83-1.16) 04/21/17 20:55 APTT 33.7 SEC (23.0-38.0) 04/21/17 20:55 Sodium 133 mEq/L (135-145) L 04/21/17 20:55 Potassium 3.9 mEq/L (3.5-5.2) 04/21/17 20:55 Chloride 105 mEq/L (97-110) 04/21/17 20:55 Carbon Dioxide 17 mEq/l (22-31) L 04/21/17 20:55 Anion Gap 11 mEq/L (8-16) 04/21/17 20:55 BUN 18 mg/dL (7-23) 04/21/17 20:55 Creatinine 0.9 mg/dL (0.6-1.0) 04/21/17 20:55 Estimated GFR > 60 04/21/17 20:55 Glucose 116 mg/dL (70-100) H 04/21/17 20:55 Calcium 8.0 mg/dL (8.5-10.4) L 04/21/17 20:55 Troponin I 0.025 ng/mL (0.000-0.034) 04/21/17 20:55 Patient ABO/Rh A POSITIVE 04/21/17 22:18 Imaging Review: CT Chest Pulmonary Angiogram, With Contrast Enhancement and Multiplanar Reconstructions History: Chest pain. Technique: 1.25-mm axial multidetector helical CT angiogram imaging was performed through the chest while 90 mL Isovue-370 were injected intravenously, without complication. The images were then transferred to an independent workstation where multiplanar and three- dimensional reconstructions were performed by the interpreting physician and reviewed at multiple windows. Dose reduction techniques were utilized. Comparison: None. CT Pulmonary Angiogram Findings: Large pulmonary embolus involving the bifurcation of the right pulmonary artery. Multiple emboli in the right lower lobe and a few in the right upper lobe. Small pulmonary emboli also noted in the left lower lobe. No aortic aneurysm or dissection. The heart is normal in size. No definite heart strain. No pericardial effusion or cardiomegaly. CT Chest Findings: Alveolar opacity in the right lower lobe, probably representing pulmonary infarct. Minimal right pleural effusion. Minimal atelectasis in the left lower lobe. No pneumothorax. No significant adenopathy. Impression: 1. Positive large volume right pulmonary emboli, especially in the right lower lobe, and additional small volume emboli left lower lobe. 2. Minimal right pleural effusion, with right lower lobe pulmonary infarct/ pneumonitis. Findings and recommendations discussed with Emergency Department physician, Ramon Henley M.D., at 2155 hours, on April 21, 2017. Final report concurs with initial preliminary interpretation. A test result has been communicated to a licensed care provider and documented in the [employer] Critical Result system on 04/21/2017 22:01, Message ID [id number]. Ultrasound Venous Duplex Doppler - Bilateral Legs at 2218 hours History: Positive pulmonary emboli. Possible DVT. Findings: Ultrasound venous Duplex and Doppler imaging of the bilateral common femoral veins, femoral veins, popliteal veins, calf veins, and greater saphenous vein origins demonstrates positive deep venous thrombosis involving the distal right femoral vein, popliteal vein, and right greater saphenous vein. Additional positive deep venous thrombosis involving the left popliteal vein and the left posterior tibial veins. Impression: Positive bilateral deep venous thrombosis. Findings and recommendations discussed with Emergency Department physician, Dr. Pete at 23:07 hour, 04/21/2017. Final report concurs with initial preliminary interpretation. Visualized and Interpreted imaging results: Yes Assessment & Plan Assessment: Assessment and plan: Pleasant 71-year-old female with history of multiple myeloma and factor 5 Leiden deficiency not on anticoagulation 2/2 thrombocytopenia who presents emergency department with progressive and worsening right lateral chest wall pain. #Pulmonary embolism (Acute) - patient noted to have multiple PEs largest in the right pulmonary artery bifurcation. See report above. Hematology was consulted from the emergency department and recommends the patient be started on a heparin drip without a bolus in addition to receiving irradiated platelet transfusion which may take several hours due to HLA typing. Patient reports symptoms improved with supplemental oxygen and will continue p.r.n. She has not had any observed hypoxia. Plan for exertional pulse ox prior to discharge should home oxygen be required. #Bilateral DVT (Acute) - heparin drip as noted above. #Pancytopenia - secondary to patient's history of multiple my [place]. Patient will be transfused platelet therapy as soon as they become available but may take several hours due to HLA typing. #Pleuritic chest pain - patient reports oral and IV morphine worked best compared to alternative pain medications. These have been ordered p.r.n.. #Multiple Myeloma - Oncology consulted and will see in the morning. #Factor 5 Leiden deficiency - heparin drip as noted above. #Hyponatremia - possibly due to some volume loss. Patient was see some gentle IV fluid hydration overnight. Will monitor and consider urine studies if further declines. FEN - IVF gentle hydration. Electrolytes will be removed monitored and replaced p.r.n.. Regular diet as tolerated. Patient is not currently neutropenic. PPx-heparin drip. No SCDs secondary to DVT in use of heparin. Cor status-full. Dispo - patient has been admitted to inpatient status on the medical floor or patient be transferred to [facility]. Anticipate greater than 2 midnight stay given complexity of patient's pancytopenia and need for anticoagulation with bilateral PEs.
[2017-04-22] MEDS: NS 1,000 ML IV SCH (00:32)
--- NOTE | 2017-04-22 03:00 | PDMN ---
Medical Necessity Medical necessity: C/M review: est. > 2 MN LOS for eval and TX of acute bilateral pulmonary emboli, multiple PE's largest in the right pulmonary artery bifurcation, acute bilateral lower extremity DVTs, pleuritic chest pain, pancytopenia, hyponatremia, requiring 2 units platelets, planned Oncology consult, ongoing IV Heparin infusion, IV fluids, IV and oral Morphine as needed , pulse oximetry, supplemental O2, comorbid multiple myeloma, Factor V Leiden deficiency, chronic anticoagulation held latter part of 2016 x 6 months due to thrombocytopenia, history of multiple PEs previously on chronic anticoagulation , left power port placement per H/P.
[2017-04-22 05:14] LABS: PLATELET COUNT 9 10^3/uL (150-400)
--- NOTE | 2017-04-22 09:45 | ASMTCMCOM ---
CM Note CM Note Notes: 71 year old female admitted for SOB Pulm Embolism, Thrombocytopenia. She has a hx of Multiple Myeloma, PE's, Chronic anticoagulation. Patient lives with her . CM to follow for possible needs. Date Signed: 04/22/2017 09:44 AM Electronically Signed By:Mary Peña LCSW
--- NOTE | 2017-04-22 11:09 | HOSPPROG ---
Hospitalist Progress Note Assessment/Plan: Acute PE and b/l DVT - lg right PE and extensive b/l DVT in setting of cancer and FVL, off anti-coagulation x6 months due to thrombocytopenia. Heparin drip without bolus started last night. No bleeding today. -cont heparin drip, further anti-coagulation plans per direction of heme/onc -would check PTT if anti-Xa levels not rising appropriately -discussed with onc, will place IVC filter due to risk of bleeding and to prevent worsening clot burden Thrombocytopenia - s/p 2 u plts. No bleeding. Plts up from 7 to 65 this am. Anticipate decline. -cont to follow plts closely and transfuse as needed Multiple myeloma - Dr. Mcclain is primary. -holding Revlimid and Dexamethasone fow now given above issues, resume per onc recs Full code Dispo - cont inpt Subjective: Pt feels fine. No bleeding. She has no h/o bleeding despite frequent plt counts of 5-7 and prior anti-coagulation. Denies CP or SOB. No fevers. Objective: Vital Signs Temp Pulse Resp BP Pulse Ox 37.2 C 92 15 98/54 L 97 04/22/17 07:24 04/22/17 07:24 04/22/17 07:24 04/22/17 07:24 04/22/17 07:24 Laboratory Results 04/22/17 10:37 04/22/17 04:45 04/21/17 04/22/17 04/23/17 05:59 05:59 05:59 Intake Total 1500 Output Total 500 Balance 1000 PT 14.6 SEC (12.0-15.0) 04/21/17 20:55 INR 1.12 (0.83-1.16) 04/21/17 20:55 - Physical Exam Constitutional: no apparent distress Eyes: PERRL Ears, Nose, Mouth, Throat: moist mucous membranes Cardiovascular: regular rate and rhythym Respiratory: no respiratory distress, clear to auscultation Gastrointestinal: normoactive bowel sounds, soft, non-tender abdomen Skin: warm Musculoskeletal: full muscle strength Neurologic: AAOx3 Psychiatric: interacting appropriately ICD10 Worksheet Patient Problems: Problems Problem Status Onset Pulmonary embolism Acute Thrombocytopenia Acute Chest pain Acute Multiple myeloma Acute
[2017-04-22] MEDS: ACETAMINOPHEN 325 MG TAB PO PRN ×2 (11:42→20:41)
[2017-04-22] MEDS ORDERED: fentaNYL 100 MCG/2 ML INJ IVP PRN (16:39)
[2017-04-22] MEDS ORDERED: NALOXONE HCL 0.4 MG/ML INJ IVP PRN (16:39)
[2017-04-22] MEDS ORDERED: FLUMAZENIL 0.5 MG/5 ML MDV IVP PRN (16:39)
[2017-04-22] MEDS ORDERED: MEPERIDINE 25 MG/ML SYR IVP PRN (16:39)
[2017-04-22] MEDS ORDERED: MIDAZOLAM 2 MG/2 ML VIAL IVP PRN (16:39)
--- NOTE | 2017-04-22 16:43 | GCON ---
[f rep st] CONSULTATION NEW PATIENT CONSULTATION REFERRING PHYSICIAN: Rossana Zafar MD REASON FOR CONSULTATION: Patient with underlying history of multiple myeloma, under the care of Dr. Osiris Mcclain, presents with bilateral DVT and PEs. HISTORY OF PRESENT ILLNESS: The patient was originally diagnosed with monoclonal gammopathy and smol dering myeloma in January of 2010. She developed lytic lesions on PET in July of 2014, and began the rapy in August of 2014, with Revlimid and dexamethasone. She underwent autologous stem cell transplant January 2015. She then received maintenance Revlimid beginning May 2015, until she was found to have recurrent disease in January of 2017. She began daratumumab, Velcade, dexamethasone, essential ly had no response to therapy as demonstrated by her paraprotein studies and bone marrow biopsy. She was then changed to elotuzumab, Revlimid and dexamethasone on 03/27/2017. She most recently rece ived cycle 1, day 22 of this regimen, on 04/17/2017. 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 PRA did not demo nstrate a high titer of alloantibodies, but did demonstrate an A-66 antibody that she has been receiv ing platelet transfusion with A-66 avoidance or HLA matching, as well as irradiated platelets. Her medical history is also complicated by recurrent DVTs. She even clotted on Eliquis previously, w hich will be discussed below. She presented to the emergency room with chest pain and shortness of b reath. A CTA done, given her high risk of blood clots, confirming positive large volume right pulmonary embo li, especially in the right lower lobe, and additional small volume emboli in the left lower lobe. S he has associated pulmonary infarction. She has minimal right pleural effusion. She was given 2 units of platelet transfusion and started on a heparin drip. Given the acute finding and a concern for clot burden, we did fine multiple bilateral lower extremity clots as well. She is currently on heparin. Chest pain is somewhat stable. Platelets have come up to 65,000, when she was admitted in the ED they were 10,000. PAST MEDICAL HISTORY: 1. Multiple myeloma, as described above. Transfusion-dependent thrombocytopenia, anemia of chemothe rapy, on recent darbepoetin. 2. Right lower extremity DVT, occurring on Eliquis, Revlimid, dexamethasone September 2014; history of re current PE, has not been on Coumadin given the risk for bleeding and platelets below 10,000 chronical ly. 3. Left chin numbness due to left mandibular myelomatous lesion. 4. Osteopenia. 5. Left shoulder pain. 6. Left 7th anterior lateral rib fracture. PAST SURGICAL HISTORY: Noncontributory. FAMILY HISTORY: Noncontributory. SOCIAL HISTORY: She is accompanied by her in the hospital, who is very supportive. No tobac co, alcohol, or drugs. She lives at home. REVIEW OF SYSTEMS: As per HPI. Otherwise, a 14-point review of systems is negative. PHYSICAL EXAMINATION: VITAL SIGNS: Currently show blood pressure 112/62, heart rate of 98, respirat ion rate 19, saturating 100% on 2 L nasal cannula. Most recent temp is 38.4. GENERAL: Looks her st ated age, not in acute distress. Alert and oriented. HEENT: Anicteric. Oropharynx is clear. HEAR T: Regular rate and rhythm. LUNGS: She has some rhonchi bilaterally, right greater than left, but is moving air well. ABDOMEN: Soft, nontender. No enlarged spleen or liver. LOWER EXTREMITIES: No significant edema. LABORATORY DATA: Yesterday: White blood cell count 2.1, hemoglobin 8.1, platelet count of 9000. Pl atelet count status post 2 units was 65,000 today. Her INR is 1.12. Creatinine 0.9, calcium 7.5. IMAGIN. CTA as described above. 2. Bilateral lower extremity venous study demonstrates positive bilateral deep venous thrombosis, de monstrates positive DVT involving distal right femoral vein, popliteal vein, and right greater saphen ous vein. Additional positive DVT involving left popliteal vein and left posterior tibial veins. ASSESSMENT AND PLAN: The patient is a 71-year-old woman with relapsed myeloma, complicated by transf usion-dependent thrombocytopenia and recurrent deep venous thrombosis in the setting of factor V Leid en deficiency. She presents with recurrent bilateral deep venous thromboses and pulmonary emboli. 1. Deep venous thromboses, pulmonary emboli, a significant amount of clot burden in the lungs. This is a very difficult situation given her transfusion-dependent fairly refractory thrombocytopenia. I had a long discussion with patient and , over 45 minutes, discussing options going forward. I would favor an inferior vena cava filter placement to protect her from future pulmonary embolus, gi john the concern for pulmonary hypertension and heart strain. She is certainly at high risk for futur e clot, and it may not be possible to continue anticoagulation given issues with platelets and bleedi ng risk. For now, we will keep her on a heparin drip and plan inferior vena cava filter placement to day. Her platelets, status post 2 units, have increased to 65,000, but this is the best they have be en in months. We went over risk versus benefit of inferior vena cava filter in this setting versus d oing nothing. I think unlikely patient will be able to go back on anticoagulation if platelets lisseth nue to be less than 10,000, as this has been most recent complication of her therapy. Dr. Mcclain may dr dave her Revlimid to see if this is playing a role. It will certainly be difficult to keep her on anti coagulation with platelet counts below 10,000, and this would not be recommended. She is currently s table hemodynamically and doing well. 2. Thrombocytopenia. Refractory due to underlying myeloma. No evidence of idiopathic thrombocytope alanis purpura based on recent bone marrow in March. Her PRA did not demonstrate a high titer of allo antibodies, but did demonstrate an A-66 antibody. Further platelet transfusions need to be given wit h A-66 avoidance or HLA matching, as well as irradiated. She denies bleeding at this time. Again, m ost recent platelet count is 65,000. She has been requiring platelet transfusions twice a week. 3. Multiple myeloma relapse. IgG lambda, status post autologous stem cell transplant January 2015. No response to daratumumab, bortezomib and dexamethasone after she relapsed on maintenance Revlimid . She is now on elotuzumab, Revlimid 10 mg and dexamethasone. She is due to start cycle 2 of this t herapy on Sunday, which will probably be delayed until mid week. She can be dosed in the hospital. Dr. Kirby, at [facility], also coordinates her care with Dr. Mcclain. 4. History of Factor V Leiden. Unsure if she is homozygous or heterozygous. Certainly, this plus Re vlimid plus myeloma diagnosis make her high risk for future clotting. 5. Osteopenia. The patient is on Zometa as an outpatient. 6. Pain is on-chronic. Narcotics would continue. 7. Anemia, on darbepoetin as an outpatient given chemotherapy-induced anemia. The patient and are in agreement with plan. BILLING: More than an hour was spent with patient, more than 50% of the time in counseling and coord inating care. /[id number]/MODL
[2017-04-22] MEDS ORDERED: NS 1,000 ML IV SCH (16:45)
--- NOTE | 2017-04-22 17:19 | PDPROPOC ---
Sedation Plan of Care Sedation Plan of Care: vital signs stable, mental status noted, patient educated of risks, benefits, alternatives, patient can tolerate sedation ASA Classification: ASA 3 Planned drugs: fentanyl, midazolam Mallampati Score: Class 2 Mallampati Reference Image: Patient passed 3-3-2 rule?: Yes
--- NOTE | 2017-04-22 17:20 | PDRADPN ---
Radiology Procedure Note Date of Procedure: 04/22/17 Radiologist: Chantale Cohn Anesthesia: IV Sedation Pre-op Diagnosis: DVT AND PE Post-op Diagnosis: SAME Indication: DVT AND PE Procedure: FILTER PLACEMENT Finding(s): SEE REPORT Inf/Abcess present in the surg proc area at time of surgery?: No Complications: NONE
[2017-04-22] MEDS ORDERED: CEFEPIME HCL 2 GM in STERILE WATER INJ 12.5 ML IV SCH (18:18)
[2017-04-22] MEDS: LORazepam 1 MG TAB PO PRN (20:42)
[2017-04-22] MEDS: ACYCLOVIR 400 MG TAB PO SCH (20:43)
[2017-04-23] MEDS: HEPARIN/DEXTROSE 500 ML IV SCH (02:34)
[2017-04-23] MEDS: ACYCLOVIR 400 MG TAB PO SCH ×2 (09:18→21:11)
[2017-04-23] MEDS: GABAPENTIN 300 MG CAP PO SCH ×2 (09:18→09:20)
[2017-04-23] MEDS: CHOLECALCIFEROL VIT D3 1,000 UNITS TAB PO SCH (09:18)
--- NOTE | 2017-04-23 10:48 | SOAPPROG ---
SOAP Progress Note Assessment/Plan: Assessment: 1.) PE/DVT (multiple sites) as noted in the face of profoundly low Platelets- chronically causing concern for anticoagulation, but requiring cautious use of anticoagulation . S/P placement of IVC filter. Shows no evidence for progression of PE/ DVT by sx. this AM. To continue on heparin gtt. with caution. 2.) Multiple Myeloma with refractory disease on Elotuzumab, Dex., Revlimid. I did confer with Dr. Mcclain as to continuing this week's (tomorrow) Elotuzumab dose and Dex. as d/w patient and . 3.) Will continue blood product support with 2 U PRBCS and with single donor platelets. 4.) At high risk for bleeding: continue caution since patient on heparin drip. Plan: 1.) Transfuse 2 U PRBCs and single donor platelets 2.) Dex. po today 3.) Elotzumab on 04/24 4.) Continue Heparin drip and monitor for bleeding and PE/DVT status. 04/23/17 10:50 Subjective: No respiratory sx. at rest. No bleeding today. Feels relatively well, without symptomatic complaints. No pain. Pt's @ bedside and voices no other active issues. Pt wonders if she will continue with her Myeloma Tx tomorrow. Objective: VSS, afebrile as noted here. Pt sitting at 15 degree angle with supplemental oxygen in place and in NAD. at bedside. HEENT- pale, anicteric, no oral lesions Neck- supple Chest clear anteriorly Mediport Left chest is accessed and NT CVS- RSR, no extra HS ABD- soft, NT, BS+, no mass or HSM EXT- no edema in either LE Skin- intact. Labs_ Hgb 6.2, PLT 25 BUN/CR 9/0.9 Vital Signs Temp Pulse Resp BP Pulse Ox 37.3 C 92 16 100/56 L 98 04/23/17 08:32 04/23/17 08:32 04/23/17 08:32 04/23/17 08:32 04/23/17 08:32 Laboratory Results 04/23/17 06:20 04/23/17 06:20 04/22/17 04/23/17 04/24/17 05:59 05:59 05:59 Intake Total 1500 1250 Output Total 500 Balance 1000 1250 PT 14.6 SEC (12.0-15.0) 04/21/17 20:55 INR 1.12 (0.83-1.16) 04/21/17 20:55 ICD10 Worksheet Patient Problems: Problems Problem Status Onset Pulmonary embolism Acute Thrombocytopenia Acute Chest pain Acute Multiple myeloma Acute
[2017-04-23] MEDS ORDERED: diphenhydrAMINE 25 MG CAP PO ONE ×2 (11:01→14:29)
[2017-04-23] MEDS ORDERED: ACETAMINOPHEN 650 MG SUPP PR ONE (11:03)
[2017-04-23] MEDS ORDERED: FUROSEMIDE 20 MG/2 ML VIAL IVP ONE (11:03)
[2017-04-23] MEDS ORDERED: DEXAMETHASONE 4 MG TAB PO SCH (11:15)
[2017-04-23 14:12] LABS: PLATELET COUNT 25 10^3/uL (150-400)
[2017-04-23] MEDS: ACETAMINOPHEN 325 MG TAB PO PRN (14:37)
[2017-04-23] MEDS ORDERED: FUROSEMIDE 20 MG/2 ML VIAL ONE (15:36)
--- NOTE | 2017-04-23 17:41 | HOSPPROG ---
Hospitalist Progress Note Assessment/Plan: Assessment: 71 yo F p/w acute PE/DVT in setting of pancytopenia and multiple myeloma Plan: # Acute PE and b/l DVT - POA, lg right PE and extensive b/l DVT in setting of cancer and FVL, off anti-coagulation x 6 months due to thrombocytopenia. - cont on Heparin drip, No bleeding today - d/w Dr. Jordan, we agreed that if no bleeding, lovenox would likely be safest tx plan - d/w patient/, they are averse to lovenox b/c of site irritation and inconvenience, they will consider tonight whether they would like to use coumadin instead moving forward - acute pulmonary infarct is the cause of pain, adjusted to PO/IV morphine # Fever - acute, new problem, further w/u indicated. Patient is not actually neutropenic (ANC > 500), adjusted from cefepime to levofloxacin given high risk of infxn - unclear if 2/2 pulm infarct, PE, underlying infxn - CXR w/o focal infiltrate (personally interpreted), but diffuse interstitial processes could be viral vs. antypicals - get RVP, get UA # Pancytopenia - 2/2 combination of chemotherapy and multiple myeloma, currently requiring daily transfusion support (2u plts 04/22, 2u plts 04/23, 2u PRBC 04/23) - daily CBC, transfuse as needed # Multiple myeloma - chronic, Dr. Mcclain is primary. - holding Revlimid and Dexamethasone fow now given above issues, resume per onc recs Code - full PPx - on hep gtt Diet - regular Dispo - cont inpt for daily transfusions, high risk bleed on hep gtt Subjective: patient w/ ongoing bilat chest pain Objective: Vital Signs Temp Pulse Resp BP Pulse Ox 38.9 C H 98 16 112/62 100 04/23/17 14:54 04/23/17 14:54 04/23/17 14:54 04/23/17 14:54 04/23/17 14:54 Laboratory Results 04/23/17 06:20 04/23/17 06:20 04/22/17 04/23/17 04/24/17 05:59 05:59 05:59 Intake Total 1500 1250 Output Total 500 Balance 1000 1250 PT 14.6 SEC (12.0-15.0) 04/21/17 20:55 INR 1.12 (0.83-1.16) 04/21/17 20:55 - Physical Exam Constitutional: no apparent distress, chronically ill appearing, uncomfortable, other (lethargic but arousable), No not in pain (mild in chest) Ears, Nose, Mouth, Throat: moist mucous membranes, hearing normal, ears appear normal, no oral mucosal ulcers Cardiovascular: tachycardia, No systolic murmur, No irregularly irregular, No edema Respiratory: reduced air movement (poor insp effort), No expiratory wheeze, No inspiratory crackles, No bronchial breath sounds, No respiratory distress Gastrointestinal: normoactive bowel sounds, soft, non-tender abdomen, no palpable masses, No distension Skin: No rash Neurologic: AAOx3, No facial droop Psychiatric: not encephalopathic, anxious, flat affect, No agitated ICD10 Worksheet Patient Problems: Problems Problem Status Onset Pulmonary embolism Acute Thrombocytopenia Acute Chest pain Acute Multiple myeloma Acute
[2017-04-23] MEDS: NS 1,000 ML IV SCH (20:27)
[2017-04-24] MEDS: LORazepam 1 MG TAB PO PRN ×2 (00:21→21:35)
[2017-04-24 05:14] LABS: PLATELET COUNT 41 10^3/uL (150-400)
[2017-04-24] MEDS: HEPARIN/DEXTROSE 500 ML IV SCH (05:40)
[2017-04-24] MEDS: CHOLECALCIFEROL VIT D3 1,000 UNITS TAB PO SCH (10:22)
[2017-04-24] MEDS: ACYCLOVIR 400 MG TAB PO SCH ×2 (10:22→21:31)
--- NOTE | 2017-04-24 10:49 | SOAPPROG ---
SOAP Progress Note Assessment/Plan: Assessment: 1.) PE/DVT (multiple sites) as noted in the face of profoundly low Platelets- chronically causing concern for anticoagulation, but requiring cautious use of anticoagulation . S/P placement of IVC filter. Shows no evidence for progression of PE/ DVT by sx. this AM. To continue on heparin gtt. with caution. Tolerating heparin infusion well as of Sunday AM. I reviewed her situation with Dr. Osiris Mcclain as to external relations director anticoagulation. Choice of Tx and whether to treat is being contemplated by Dr. Mcclain. 2.) Multiple Myeloma with refractory disease on Elotuzumab, Dex., Revlimid. I did confer with Dr. Mcclain as to continuing this week's (tomorrow) Elotuzumab dose and Dex. as d/w patient and . Elotuzumab today. Revlimid held. Dex. to be given today. 3.) Will continue blood product support, if needed. 4.) At high risk for bleeding: continue caution since patient on heparin drip. Plan: 1.) Dex. po as part of regimen 3.) Elotzumab today- 04/24 3.) Continue Heparin drip and monitor for bleeding and PE/DVT status. 4.) Re-assess as to active sx., labs, VSS and discharge criteria and follow up. 04/24/17 10:49 Subjective: Doing well, without new sx. and reports no resp. distress at rest and no bleeding, no hematuria, epistaxis, hemetemesis, hematochezia, melena. No now sx. Objective: VSS, afebrile as noted here. HEENT- anicteric, no oral lesions Neck- supple Chest- clear anteriorly, bilat. CVS- RSR, no extra HS ABD- soft, NT, BS+, no mass or HSMnon-distended EXT- no edema. No ecchymoses or petechiae Labs as noted here: PLT 41, WBC 1.59, Hgb 7.9 Vital Signs Temp Pulse Resp BP Pulse Ox 36.6 C 68 18 120/70 97 04/24/17 08:54 04/24/17 08:54 04/24/17 08:54 04/24/17 08:54 04/24/17 08:54 Microbiology 04/23/17 23:00 Respiratory Panel (PCR) - Final Nasal, Sinus - Swab No Organism Detected Laboratory Results 04/24/17 04:45 04/24/17 04:45 04/23/17 04/24/17 04/25/17 05:59 05:59 05:59 Intake Total 1250 300 Output Total 950 Balance 1250 -650 PT 14.6 SEC (12.0-15.0) 04/21/17 20:55 INR 1.12 (0.83-1.16) 04/21/17 20:55 ICD10 Worksheet Patient Problems: Problems Problem Status Onset Pulmonary embolism Acute Thrombocytopenia Acute Chest pain Acute Multiple myeloma Acute
[2017-04-24] MEDS: GABAPENTIN 300 MG CAP PO SCH (19:23)
--- NOTE | 2017-04-24 21:41 | HOSPPROG ---
Hospitalist Progress Note Assessment/Plan: Assessment: 71 yo F p/w acute PE/DVT in setting of pancytopenia and multiple myeloma Plan: # Acute PE and b/l DVT - POA, large right PE and extensive b/l DVT in setting of cancer and FVL, off anti-coagulation x 6 months due to thrombocytopenia. - cont on Heparin drip, No bleeding today - initially counseled patient that therapeutic lovenox (50 bid) likely plan, but she would prefer to use coumadin given reversibility and dosing methods, as well as her long hx of use and consistency of dosing (6mg daily x 6 days, 5mg daily x 1 day) - d/w Dr. Jordan, he has coordinated w/ Dr. Mcclain and the suggested plan is that she not resume full-strength anticoagulation at discharge, but perhaps lower dosage ppx lovenox to reduce clot propagation, since she has IVC filter - Dr. Jordan will d/w patient, because our preliminary plan (as requested by patient/) was to reinitiate coumadin (they wanted to avoid lovenox) while on hep gtt, and it will be very high risk to discharge patient not on therapeutic anticoagulation as her PEs will take weeks to reabsorb and she is hypoxic, experiencing pulm pain from pulm infarct # Fever - acute, patient is not actually neutropenic (ANC > 500), adjusted from cefepime to levofloxacin given high risk of infxn - likely 2/2 pulm infarct - CXR w/o focal infiltrate, but diffuse interstitial processes could be viral vs. antypicals - RVP pending, UA neg # Pancytopenia - 2/2 combination of chemotherapy and multiple myeloma, currently requiring daily transfusion support (2u plts 04/22, 2u plts 04/23, 2u PRBC 04/23) - daily CBC, transfuse as needed # Multiple myeloma - chronic, Dr. Mcclain is primary. - holding Revlimid and Dexamethasone for now given above issues, resume per onc recs - additional immunochemistry per Dr. Mcclain today Code - full PPx - on hep gtt Diet - regular Dispo - cont inpt for daily transfusions, high risk bleed on hep gtt Subjective: poor ambulatory tolerance, mod pulm discomfort w/ deep inspiration Objective: Vital Signs Temp Pulse Resp BP Pulse Ox 36.4 C 60 16 102/68 99 04/24/17 20:42 04/24/17 20:42 04/24/17 20:42 04/24/17 20:42 04/24/17 20:42 Microbiology 04/23/17 23:00 Respiratory Panel (PCR) - Final Nasal, Sinus - Swab No Organism Detected Laboratory Results 04/24/17 04:45 04/24/17 04:45 04/23/17 04/24/17 04/25/17 05:59 05:59 05:59 Intake Total 8143 965 7754 Output Total 950 200 Balance 1250 -650 900 PT 14.6 SEC (12.0-15.0) 04/21/17 20:55 INR 1.12 (0.83-1.16) 04/21/17 20:55 - Time Spent With Patient Time Spent with Patient: greater than 35 minutes Time Spent with Patient: Greater than 35 minutes spent on this patients care, greater than 50% of time spent counseling, educating, and coordinating care regarding the above mentioned plan. - Physical Exam Constitutional: no apparent distress, chronically ill appearing, uncomfortable, No not in pain (mod w/ deep insp) Cardiovascular: regular rate and rhythym, no murmur, rub, or gallop, No edema Respiratory: reduced air movement (poor insp air movement), No expiratory wheeze , No inspiratory crackles, No bronchial breath sounds Gastrointestinal: normoactive bowel sounds, soft, non-tender abdomen, no palpable masses Neurologic: AAOx3 Psychiatric: interacting appropriately, not anxious, not encephalopathic, thought process linear ICD10 Worksheet Patient Problems: Problems Problem Status Onset Chest pain Acute Thrombocytopenia Acute Multiple myeloma Acute Pulmonary embolism Acute
[2017-04-25] MEDS: HEPARIN/DEXTROSE 500 ML IV SCH ×2 (00:25→19:59)
[2017-04-25 05:23] LABS: PLATELET COUNT 52 10^3/uL (150-400)
[2017-04-25] MEDS: CHOLECALCIFEROL VIT D3 1,000 UNITS TAB PO SCH (08:43)
[2017-04-25] MEDS: ACYCLOVIR 400 MG TAB PO SCH ×2 (08:46→20:20)
[2017-04-25] MEDS: GABAPENTIN 300 MG CAP PO SCH ×2 (08:52→20:22)
--- NOTE | 2017-04-25 09:40 | ASMTCMCOM ---
CM Note CM Note Notes: Spoke with patient and regarding PT recommendation of home PT. They seemed amenable to the idea. I also mentioned a home RN given patient's likely new anticoagulation medication regime. They were also interested in that. I placed a call to [facility] to keep patient on their radar. We need to notify them when we have a better idea of discharge date, as well as confirming with patient that she does indeed want those services. Case Management will follow. Date Signed: 04/25/2017 09:39 AM Electronically Signed By:Samantha Vivas RN
--- NOTE | 2017-04-25 11:27 | SOAPPROG ---
SOAP Progress Note Assessment/Plan: Assessment: 1.) PE/DVT (multiple sites) as noted in the face of profoundly low Platelets- chronically causing concern for anticoagulation, but requiring cautious use of anticoagulation . S/P placement of IVC filter. Shows no evidence for progression of PE/ DVT by sx. this AM. To continue on heparin gtt. with caution. Tolerating heparin infusion well as of Sunday AM. I reviewed her situation with Dr. Osiris Mcclain as to terminal worker anticoagulation. Choice of Tx and whether to treat is being contemplated by Dr. Mcclain. 2.) Multiple Myeloma with refractory disease on Elotuzumab, Dex., Revlimid. I did confer with Dr. Mcclain as to continuing this week's (tomorrow) Elotuzumab dose and Dex. as d/w patient and . Elotuzumab today. Revlimid held. Dex. to be given today. 3.) Will continue blood product support, if needed. 4.) At high risk for bleeding: continue caution since patient on heparin drip. 5.) Possibly home on 04/26. We did discuss use of Enoxaparin and the disadvantages of warfarin in her situation. Plan: 1.) Dex. po as part of regimen 3.) Elotzumab today- 04/25. Note that Elotuzumab was not received by [facility] on 04/24/17 due to problem with shipment from [employer]. 3.) Continue Heparin drip and monitor for bleeding and PE/DVT status. 4.) Re-assess as to active sx., labs, VSS and discharge criteria and follow up. 04/25/17 11:24 Subjective: Having some pain from Left sided PE today. No bleeding. Objective: VSS, afebrile as noted here HEENT- pale, anicteric, no oral lesions Neck- supple Chest- clear, no friction rub CVS- RSR, no extra HS ABD- soft, NT BS+, no mass or HSM EXT- no edema in LE. Labs as noted hereL PLT up to 52, Hgb 7.5 Vital Signs Temp Pulse Resp BP Pulse Ox 36.3 C 80 16 108/62 95 04/25/17 09:11 04/25/17 09:11 04/25/17 09:11 04/25/17 09:11 04/25/17 09:11 Microbiology 04/23/17 23:00 Respiratory Panel (PCR) - Final Nasal, Sinus - Swab No Organism Detected Laboratory Results 04/25/17 05:05 04/25/17 05:05 04/24/17 04/25/17 04/26/17 05:59 05:59 05:59 Intake Total 300 1950 Output Total 950 550 350 Balance -650 1400 -350 PT 14.6 SEC (12.0-15.0) 04/21/17 20:55 INR 1.12 (0.83-1.16) 04/21/17 20:55 ICD10 Worksheet Patient Problems: Problems Problem Status Onset Pulmonary embolism Acute Thrombocytopenia Acute Chest pain Acute Multiple myeloma Acute
[2017-04-25] MEDS ORDERED: NS IV ONE ×2 (13:00→14:00)
[2017-04-25] MEDS ORDERED: DEXAMETHASONE SOD PHOSPHATE IV ONE (13:00)
[2017-04-25] MEDS ORDERED: ACETAMINOPHEN 325 MG TAB PO ONE (13:00)
[2017-04-25] MEDS ORDERED: ELOTUZUMAB IV ONE (14:00)
[2017-04-25] MEDS: FAMOTIDINE 20 MG/NACL 50 ML IV SCH (14:02)
--- NOTE | 2017-04-25 15:39 | HOSPPROG ---
Hospitalist Progress Note Assessment/Plan: Assessment: 71 yo F p/w acute PE/DVT in setting of pancytopenia and multiple myeloma Plan: # Acute PE and b/l DVT - POA, large right PE and extensive b/l DVT in setting of cancer * Getting heparin currently * Monitor for bleeding due to low platelets * Status post IVC filter * Will probably transition to Lovenox on discharge # Fever - acute, patient is not actually neutropenic (ANC > 500) * Workup negative and fevers have resolved * Most likely due to pulmonary infarction large PE * Will probably discontinue antibiotics after tomorrow # Pancytopenia - 2/2 combination of chemotherapy and multiple myeloma, currently requiring daily transfusion support (2u plts 04/22, 2u plts 04/23, 2u PRBC 04/23) - daily CBC, transfuse as needed # Multiple myeloma - chronic, Dr. Mcclain is primary. - holding Revlimid and Dexamethasone for now given above issues, resume per onc recs Code - full PPx - on hep gtt Diet - regular Dispo - cont inpt for daily transfusions, high risk bleed on Subjective: Continues pleuritic pain but no other new complaints. Still quite dyspneic even with walking to the bathroom Objective: Vital Signs Temp Pulse Resp BP Pulse Ox 36.4 C 68 17 112/64 100 04/25/17 15:04 04/25/17 15:04 04/25/17 15:04 04/25/17 15:04 04/25/17 15:04 Microbiology 04/23/17 23:00 Respiratory Panel (PCR) - Final Nasal, Sinus - Swab No Organism Detected Laboratory Results 04/25/17 05:05 04/25/17 05:05 04/24/17 04/25/17 04/26/17 05:59 05:59 05:59 Intake Total 300 1950 Output Total 950 550 350 Balance -650 1400 -350 PT 14.6 SEC (12.0-15.0) 04/21/17 20:55 INR 1.12 (0.83-1.16) 04/21/17 20:55 - Physical Exam Constitutional: no apparent distress, appears nourished, not in pain Eyes: anicteric sclera, EOMI Ears, Nose, Mouth, Throat: moist mucous membranes, hearing normal Cardiovascular: regular rate and rhythym, no murmur, rub, or gallop Respiratory: no respiratory distress, no rales or rhonchi Gastrointestinal: normoactive bowel sounds, soft, non-tender abdomen, no palpable masses Skin: warm Neurologic: AAOx3 Psychiatric: interacting appropriately, not anxious, not encephalopathic, thought process linear ICD10 Worksheet Patient Problems: Problems Problem Status Onset Pulmonary embolism Acute Thrombocytopenia Acute Chest pain Acute Multiple myeloma Acute
[2017-04-26 05:43] LABS: PLATELET COUNT 53 10^3/uL (150-400)
[2017-04-26] MEDS: ACYCLOVIR 400 MG TAB PO SCH ×2 (10:22→20:17)
[2017-04-26] MEDS: CHOLECALCIFEROL VIT D3 1,000 UNITS TAB PO SCH (10:23)
--- NOTE | 2017-04-26 12:15 | SOAPPROG ---
SOAP Progress Note Assessment/Plan: Assessment: 1.) PE/DVT (multiple sites) as noted in the face of profoundly low Platelets- chronically causing concern for anticoagulation, but requiring cautious use of anticoagulation . S/P placement of IVC filter. Shows no evidence for progression of PE/ DVT by sx. this AM. To continue on heparin gtt. with caution. Tolerating heparin infusion well as of Sunday AM. I reviewed her situation with Dr. Osiris Mcclain as to technician terminal and repeater anticoagulation. Choice of Tx and whether to treat is being contemplated by Dr. Mcclain. 2.) Multiple Myeloma with refractory disease on Elotuzumab, Dex., Revlimid. Revlimid held as of now due to thromboembolic disorder currently being Txed. 3.) Will continue blood product support, if needed. 4.) At high risk for bleeding: continue caution since patient on heparin drip. 5.) Possibly home on 04/27. We did discuss use of Enoxaparin and the disadvantages of warfarin in her situation. Plan: 1.) Dex. po as part of regimen 3.) Elotzumab given- 04/25. . 3.) Continue Heparin drip and monitor for bleeding and PE/DVT status. 4.) Re-assess as to active sx., labs, VSS and discharge criteria and follow up. 5.) I encouraged ambulation to allow assessment of bilateral PE on ambulatory ability before allowing discharge. 6.) I did discuss outpt. management with Dr. Mcclain as to AC with Enoxaparin. D/ W patient and her today. 04/26/17 12:12 Subjective: Ambulating more comfortably, with minor sense of lightheadedness which quickly resolves @ rest. No new sx. Objective: at bedside. Pt looks relaxed and comfortable and in NAD HEENT- anicteric, no oral lesions Neck- supple Chest- clear, no pleural friction rub CVS- RSR, no extra HS ABD- soft, NT, BS+ EXT- no edema or petechiae or ecchymoses, skin intact Labs: PLT 53 today Hgb 7.9, WBC 1.95 as noted here. Vital Signs Temp Pulse Resp BP Pulse Ox 36.5 C 62 16 126/70 H 92 04/26/17 09:00 04/26/17 09:00 04/26/17 09:00 04/26/17 09:00 04/26/17 09:00 Laboratory Results 04/26/17 05:15 04/26/17 05:15 04/25/17 04/26/17 04/27/17 05:59 05:59 05:59 Intake Total 1950 2515 Output Total 550 1100 Balance 1400 1415 PT 14.6 SEC (12.0-15.0) 04/21/17 20:55 INR 1.12 (0.83-1.16) 04/21/17 20:55 ICD10 Worksheet Patient Problems: Problems Problem Status Onset Pulmonary embolism Acute Thrombocytopenia Acute Chest pain Acute Multiple myeloma Acute
--- NOTE | 2017-04-26 12:55 | HOSPPROG ---
Hospitalist Progress Note Assessment/Plan: Assessment: 71 yo F p/w acute PE/DVT in setting of pancytopenia and multiple myeloma Plan: # Acute PE and b/l DVT - POA, large right PE and extensive b/l DVT in setting of cancer * Getting heparin currently * Monitor for bleeding due to low platelets * Status post IVC filter * Will probably transition to Lovenox on discharge # Fever - acute, patient is not actually neutropenic (ANC > 500) * Workup negative and fevers have resolved * Most likely due to pulmonary infarction large PE * DC antibiotics today # Pancytopenia - 2/2 combination of chemotherapy and multiple myeloma, currently requiring daily transfusion support (2u plts 04/22, 2u plts 04/23, 2u PRBC 04/23) - daily CBC, transfuse as needed # Multiple myeloma - chronic, Dr. Mcclain is primary. * Getting chemotherapy today Code - full PPx - on hep gtt Diet - regular Dispo - cont inpt for daily transfusions, high risk bleed on Subjective: Was able to ambulate around the unit. Is feeling better Objective: Vital Signs Temp Pulse Resp BP Pulse Ox 36.5 C 62 16 126/70 H 92 04/26/17 09:00 04/26/17 09:00 04/26/17 09:00 04/26/17 09:00 04/26/17 09:00 Laboratory Results 04/26/17 05:15 04/26/17 05:15 04/25/17 04/26/17 04/27/17 05:59 05:59 05:59 Intake Total 1950 2515 Output Total 550 1100 Balance 1400 1415 PT 14.6 SEC (12.0-15.0) 04/21/17 20:55 INR 1.12 (0.83-1.16) 04/21/17 20:55 - Physical Exam Constitutional: no apparent distress, appears nourished, not in pain Eyes: anicteric sclera, EOMI Ears, Nose, Mouth, Throat: moist mucous membranes Cardiovascular: regular rate and rhythym Respiratory: no respiratory distress Skin: warm Neurologic: AAOx3 Psychiatric: interacting appropriately, not anxious, not encephalopathic, thought process linear ICD10 Worksheet Patient Problems: Problems Problem Status Onset Pulmonary embolism Acute Thrombocytopenia Acute Chest pain Acute Multiple myeloma Acute
[2017-04-26] MEDS: FAMOTIDINE 20 MG/NACL 50 ML IV SCH (13:23)
[2017-04-26] MEDS: HEPARIN/DEXTROSE 500 ML IV SCH (17:28)
[2017-04-26] MEDS: LORazepam 1 MG TAB PO PRN (20:17)
[2017-04-26] MEDS: GABAPENTIN 300 MG CAP PO SCH (20:17)
[2017-04-26 20:21] LABS: INR 1.09 (0.83-1.16); PROTIME(PATIENT) 14.3 SEC (12.0-15.0)
[2017-04-27 05:10] VITALS: RESP 16
[2017-04-27 05:35] LABS: PLATELET COUNT 51 10^3/uL (150-400)
[2017-04-27 09:04] VITALS: BP 118/60; PULSE 77; TEMP 98.1; O2SAT 94
[2017-04-27] MEDS: CHOLECALCIFEROL VIT D3 1,000 UNITS TAB PO SCH (10:02)
[2017-04-27] MEDS: ACYCLOVIR 400 MG TAB PO SCH (10:02)
[2017-04-27] MEDS: GABAPENTIN 300 MG CAP PO SCH (10:03)
--- NOTE | 2017-04-27 12:10 | SOAPPROG ---
SOAP Progress Note Assessment/Plan: Assessment: 1.) PE/DVT (multiple sites) as noted in the face of profoundly low Platelets- chronically causing concern for anticoagulation, but requiring cautious use of anticoagulation . S/P placement of IVC filter. Shows no evidence for progression of PE/ DVT by sx. this AM. To D/C Heparin drip and switch to Enoxaparin SQ Q12 hours per direction from Dr. Osiris Mcclain who is Pat's primary Skip Load Driver/Oncologist. D/W patient and extensively. 2.) Multiple Myeloma with refractory disease on Elotuzumab, Dex., Revlimid. Revlimid held as of now due to thromboembolic disorder currently being Txed. 3.) Possibly home on 04/27. We did discuss use of Enoxaparin and the disadvantages of warfarin in her situation. Plan: 1.) Dex. po as part of regimen 2.) Elotzumab given- 04/25. . 3.) D//c Heparin drip and monitor for bleeding and PE/DVT status. 4.) I encouraged ambulation to allow assessment of bilateral PE on ambulatory ability before allowing discharge. 5.) I did discuss outpt. management with Dr. Mcclain as to AC with Enoxaparin. D/ W patient and her today. 6.) Anticipate discharge today and I have scheduled offic appt. for Pat next Sunday. acknowledges this scheduling. Pt has at least 2 weeks of Enoxaparin @ home now. 04/27/17 12:10 Subjective: Feeling better and ambulating without discomfort. No new sx. and no sx. of PE. Objective: Pt looks comfortable and in good spirits. Her is at the bedside and notes her improvement VSS Afebrile as noted here. HEENT- pale, anicteric, no oral thrush Neck- supple Chest - clear, w/o pleural friction rub CVS- RSR, no extra HS Mediport- accessed and NT ABD- soft , NT no mass or HSM EXT- no edema, skin intact Labs: WBC 1.49, Hgb 7.7, PLT 51 K as noted here Vital Signs Temp Pulse Resp BP Pulse Ox 36.7 C 77 16 118/60 94 04/27/17 09:02 04/27/17 09:02 04/27/17 09:02 04/27/17 09:02 04/27/17 09:02 Laboratory Results 04/27/17 05:25 04/27/17 05:25 04/26/17 04/27/17 04/28/17 05:59 05:59 05:59 Intake Total 2515 2577 Output Total 1100 Balance 1415 2577 PT 14.3 SEC (12.0-15.0) 04/26/17 20:00 INR 1.09 (0.83-1.16) 04/26/17 20:00 ICD10 Worksheet Patient Problems: Problems Problem Status Onset Pulmonary embolism Acute Thrombocytopenia Acute Chest pain Acute Multiple myeloma Acute
[2017-04-27] MEDS ORDERED: ENOXAPARIN 40 MG/0.4 ML SYR SC SCH (12:15)
--- NOTE | 2017-04-27 12:33 | PDIAF ---
- Diagnosis Diagnosis: PE Code Status: Full Code - Medication Management Discharge Medications: Medications to Continue on Transfer Acyclovir [Zovirax 400 mg (*)] 400 mg PO BID 02/18/17 [Last Taken 04/21/17] Cholecalciferol Vit D3 [Vitamin D3 (*)] 1,000 units PO DAILY 02/18/17 [Last Taken 04/21/17] Dexamethasone [Decadron 4 MG (*)] 28 mg PO MO 02/18/17 [Last Taken 04/16/17] Gabapentin [Neurontin 300 MG (*)] 600 mg PO DAILY 04/22/17 [Last Taken 04/21/17] LORazepam [Lorazepam] 1 mg PO HS PRN 04/22/17 [Last Taken Unknown] Lenalidomide [Revlimid] 10 mg PO AD 04/22/17 [Last Taken 04/18/17] morphINE IR [morphINE IR 15 mg (*)] 15 mg PO DAILY PRN 04/22/17 [Last Taken 12/27] Enoxaparin [Lovenox 40 MG (*)] 40 mg SC BID #1 syr 04/27/17 [Last Taken Unknown] Discharge Medications: Refer to the Discharge Home Medication list for PRN reason. - Orders Services needed: Home Care, Registered Nurse, Physical Therapy Home Care Face to Face: I certify that this patient was under my care and that I had the required [id number] encounter meeting the encounter requirements on the discharge day. My findings support the fact that the patient is homebound as defined in Home Care Face to Face Continued: CMS Chapter 7 Medicare Benefits Manual 30.1.1 , The condition of the patient is such that there exists a normal inability to leave home and consequently, leaving home would require a considerable and taxing effort. Isolation Type: None - Follow Up Care Current Providers and Referrals: Osiris Mcclain MD [Primary Care Provider] - As per Instructions
--- NOTE | 2017-04-27 12:58 | GDS ---
[f rep st] DISCHARGE SUMMARY DISCHARGE DIAGNOSES: 1. Acute pulmonary embolism and bilateral deep venous thromboses. 2. Multiple myeloma. 3. Pancytopenia and chronic thrombocytopenia. 4. Fever most likely due to pulmonary embolism and infarction. 5. Status post inferior vena cava filter placement. HISTORY: This is a 71-year-old female with a history of multiple myeloma undergoing therapy. She castillo s chronic thrombocytopenia. She presented with shortness of breath and right-sided chest pain. HOSPITAL COURSE: Patient was admitted and underwent a CT scan which showed a large pulmonary embolis m. She also had lower extremity Dopplers which showed bilateral DVTs. Due to her thrombocytopenia, we had to be very careful with anticoagulation. Thus, an IVC filter was placed. We started her on l ow-dose heparin, which was increased. She had no signs of bleeding. Multiple discussions were had w ith her primary oncologist and it was felt that Lovenox would be the best choice and a little bit low er than usual dose. She will be discharged home on 40 mg b.i.d. of Lovenox. Patient also had a feve r, but cultures were negative. She was started on antibiotics which were then discontinued. She has had no further fevers. This was probably due to pulmonary embolism and pulmonary infarction. She i s going to be discharged home today with close followup with Oncology. DISPOSITION: Home. DISCHARGE MEDICATIONS: She is to resume her home medications. In addition, will be given Lovenox 40 mg subcu b.i.d. FOLLOWUP INSTRUCTIONS: She is instructed to follow up with Dr. Mcclain. TIME SPENT: Greater than 30 minutes were spent on discharge. /[id number]/MODL
--- NOTE | 2017-04-27 16:54 | ASMTCMCOM ---
CM Note CM Note Notes: Pt DC'd home today with [facility] RN and PT. they were alerted. RN to call [phone] and leave report. Date Signed: 04/27/2017 04:53 PM Electronically Signed By:Veronica Louis LCSW
--- NOTE | 2017-04-27 16:55 | ASDISCHSUM ---
Discharge Information Plan Status:Has needs-TBD Medically Cleared to Leave: Discharge Date:04/27/2017 03:35 PM CM D/C Disposition: ADT D/C Disposition:Home Health Service Projected Discharge Date:04/27/2017 11:00 AM Transportation at D/C: Discharge Delay Reason: Follow-Up Date:04/27/2017 11:00 AM Discharge Slot: Final Diagnosis: Placement Information Referral Type:*Home Health Care Services Referral ID:[id number] Provider Name: Address 1: Phone Number: Address 2: Fax Number: City: Selection Factors: State: Patient Contact Information Contact Name:TEJ Relationship: Address:[address] [place] [address]. City:[facility] Phone: [facility]/Zip Code:[place] [address] Email: Financial Information Financial Class:Medicare Primary Plan Desc:MEDICARE INPATIENT Primary Plan Number:[id number] [facility] Secondary Plan Number:[id number] Assessment Information [facility] Progress Note CM Note CM Note Notes: 71 year old female admitted for SOB Pulm Embolism, Thrombocytopenia. She has a hx of Multiple Myeloma, PE's, Chronic anticoagulation. Patient lives with her . CM to follow for possible needs. Date Signed: 04/22/2017 09:44 AM Electronically Signed By:Mary Peña LCSW [facility] CM Progress Note CM Note CM Note Notes: Spoke with patient and regarding PT recommendation of home PT. They seemed amenable to the idea. I also mentioned a home RN given patient's likely new anticoagulation medication regime. They were also interested in that. I placed a call to [facility] to keep patient on their radar. We need to notify them when we have a better idea of discharge date, as well as confirming with patient that she does indeed want those services. Case Management will follow. Date Signed: 04/25/2017 09:39 AM Electronically Signed By:Samantha Vivas RN [facility] CM Progress Note CM Note CM Note Notes: Pt DC'd home today with [facility] RN and PT. they were alerted. RN to call [phone] and leave report. Date Signed: 04/27/2017 04:53 PM Electronically Signed By:Veronica Louis LCSW Intervention Information Intervention Type:*IM-Signed Date of Service:04/27/2017 03:45 PM Patient Type:Inpatient Staff Member:Yudi De Hours: Discipline: Severity: Comment:
== END 2017-04-27 15:35 | disposition home health service (06) | DRG 175 ==
LOC: OBSVTOIN 22:21 → F1N 23:55
PROVIDERS: ADMIT Family Medicine; ATTEND Family Medicine
PROC: 06H033Z Insertion of Infusion Device into Inferior Vena Cava, Percutaneous Approach (ICD-10-PCS; 2017-04-22)
PROC: 30233R1 Transfusion of Nonautologous Platelets into Peripheral Vein, Percutaneous Approach (ICD-10-PCS; 2017-04-22)
PROC: 30233N1 Transfusion of Nonautologous Red Blood Cells into Peripheral Vein, Percutaneous Approach (ICD-10-PCS; 2017-04-23)
PROC: 3E0330M Introduction of Antineoplastic, Monoclonal Antibody, into Peripheral Vein, Percutaneous Approach (ICD-10-PCS; principal; 2017-04-24)
DX: I26.99 Other pulmonary embolism without acute cor pulmonale (principal); D61.810 Antineoplastic chemotherapy induced pancytopenia; I82.413 Acute embolism and thrombosis of femoral vein, bilateral; I82.433 Acute embolism and thrombosis of popliteal vein, bilateral; I82.813 Embolism and thrombosis of superficial veins of lower extremities, bilateral; I82.442 Acute embolism and thrombosis of left tibial vein; C90.00 Multiple myeloma not having achieved remission; D68.2 Hereditary deficiency of other clotting factors; D64.81 Anemia due to antineoplastic chemotherapy; D69.6 Thrombocytopenia, unspecified; M85.80 Other specified disorders of bone density and structure, unspecified site; G89.29 Other chronic pain; Z86.711 Personal history of pulmonary embolism
CPT/HCPCS: 82784-90; 84166-90; 85520-90; 86870-90; 86905-90; 86922-90; 87449-90; 96374; 97110-GP; 97116-GP; 97161-GP; 97530-GP; 99001-90; C1769; G8978-GP-CI; G8978-GP-CJ; G8979-GP-CI; G8980-GP-CI; J1100; J1200; J1642; J1644; J1650; J1940; J1956; J2250; J2270; J3010; J9176; P9016; P9037; P9040; Q9967

== ENCOUNTER → 2017-05-01 | Outpatient (CLI) | payer OTHER ==
[2017-05-01 19:01] VITALS: BP 98/66; PULSE 66; RESP 12; TEMP 97.6; O2SAT 94
== END ==
LOC: FOBOP 17:35
PROVIDERS: ATTEND Internal Medicine Hematology & Oncology
PROC: 30233R1 Transfusion of Nonautologous Platelets into Peripheral Vein, Percutaneous Approach (ICD-10-PCS; principal; 2017-05-01)
DX: C90.00 Multiple myeloma not having achieved remission (principal)
CPT/HCPCS: 36430; J1642; P9037; 99001-90

== ENCOUNTER → 2017-05-03 | Outpatient (CLI) | payer OTHER ==
[2017-05-03 17:24] VITALS: BP 114/64; PULSE 69; RESP 14; TEMP 98.8; O2SAT 96
== END ==
LOC: F1NOP 16:33
PROVIDERS: ATTEND Internal Medicine Hematology & Oncology
PROC: 30233R1 Transfusion of Nonautologous Platelets into Peripheral Vein, Percutaneous Approach (ICD-10-PCS; principal; 2017-05-03)
DX: C90.00 Multiple myeloma not having achieved remission (principal)
CPT/HCPCS: 36430; J1642; P9037; 99001-90

== ENCOUNTER 2017-05-08 17:49 | Outpatient (CLI) | payer OTHER | END 2017-05-08 19:15 | disposition home or self-care (01) | LOC: F1NOP 17:49 | PROVIDERS: ATTEND Internal Medicine Hematology & Oncology | PROC: 30233R1 Transfusion of Nonautologous Platelets into Peripheral Vein, Percutaneous Approach (ICD-10-PCS; principal; 2017-05-08) | DX: C90.00 Multiple myeloma not having achieved remission (principal) | CPT/HCPCS: 36430; J1642; P9037; 99001-90 ==

== ENCOUNTER → 2017-05-11 | Outpatient (CLI) | payer OTHER ==
[2017-05-11 16:15] VITALS: BP 124/67; PULSE 81; RESP 17; TEMP 98.1; O2SAT 96
== END ==
LOC: F1NOP 14:36
PROVIDERS: ATTEND Internal Medicine Hematology & Oncology
PROC: 30233R1 Transfusion of Nonautologous Platelets into Peripheral Vein, Percutaneous Approach (ICD-10-PCS; principal; 2017-05-11)
DX: C90.00 Multiple myeloma not having achieved remission (principal)
CPT/HCPCS: 36430; J1642; P9037; 99001-90

== ENCOUNTER 2017-05-15 16:29 | Outpatient (CLI) | payer OTHER | END 2017-05-15 17:46 | disposition home or self-care (01) | LOC: F1NOP 16:29 | PROVIDERS: ATTEND Internal Medicine Hematology & Oncology | PROC: 30233R1 Transfusion of Nonautologous Platelets into Peripheral Vein, Percutaneous Approach (ICD-10-PCS; principal; 2017-05-15) | DX: C90.00 Multiple myeloma not having achieved remission (principal) | CPT/HCPCS: 36430; J1642; P9037; 99001-90 ==

== ENCOUNTER 2017-05-18 15:16 | Outpatient (CLI) | payer OTHER ==
[2017-05-18 15:39] VITALS: BP 116/88; PULSE 79; RESP 14; TEMP 97.9; O2SAT 98
== END 2017-05-18 16:42 | disposition home or self-care (01) ==
LOC: F1NOP 15:16
PROVIDERS: ATTEND Internal Medicine Hematology & Oncology
PROC: 30233R1 Transfusion of Nonautologous Platelets into Peripheral Vein, Percutaneous Approach (ICD-10-PCS; principal; 2017-05-18)
DX: C90.00 Multiple myeloma not having achieved remission (principal)
CPT/HCPCS: 36430; J1642; P9037; 99001-90

== ENCOUNTER → 2017-05-22 | Outpatient (CLI) | payer OTHER ==
[2017-05-22 18:03] VITALS: RESP 17
[2017-05-22 18:44] VITALS: PULSE 80; TEMP 98.1
[2017-05-22 18:59] VITALS: BP 102/58; O2SAT 98
== END ==
LOC: F1NOP 17:25
PROVIDERS: ATTEND Internal Medicine Hematology & Oncology
PROC: 30233R1 Transfusion of Nonautologous Platelets into Peripheral Vein, Percutaneous Approach (ICD-10-PCS; principal; 2017-05-22)
DX: C90.00 Multiple myeloma not having achieved remission (principal)
CPT/HCPCS: 36430; J1642; P9073; 82784-90; 86334-90

== ENCOUNTER 2017-05-25 16:19 | Outpatient (CLI) | payer OTHER ==
[2017-05-25] MEDS ORDERED: ACETAMINOPHEN 325 MG TAB PO ONE (16:45)
[2017-05-25 17:15] VITALS: BP 112/64; PULSE 80; RESP 16; TEMP 98.5
[2017-05-25 19:37] LABS: PLATELET COUNT 41 10^3/uL (150-400)
== END 2017-05-25 19:00 | disposition home or self-care (01) ==
LOC: F1NOP 16:19
PROVIDERS: ATTEND Internal Medicine Hematology & Oncology
PROC: 30233R1 Transfusion of Nonautologous Platelets into Peripheral Vein, Percutaneous Approach (ICD-10-PCS; principal; 2017-05-25)
DX: C90.00 Multiple myeloma not having achieved remission (principal)
CPT/HCPCS: 36430; J1642; P9073; 99001-90

== ENCOUNTER → 2017-05-29 | Outpatient (CLI) | payer OTHER | LOC: FIMAGING 11:09 | PROVIDERS: ATTEND Nurse Practitioner | DX: M79.604 Pain in right leg (principal); Z86.718 Personal history of other venous thrombosis and embolism | CPT/HCPCS: 99001-90; J1642; P9037 ==

== ENCOUNTER 2017-06-01 14:09 | Outpatient (CLI) | payer OTHER ==
[2017-06-01 16:23] LABS: PLATELET COUNT 46 10^3/uL (150-400)
== END 2017-06-01 16:00 | disposition home or self-care (01) ==
LOC: FOBOP 14:09 → F1NOP 16:00
PROVIDERS: ATTEND Internal Medicine Hematology & Oncology
PROC: 30233R1 Transfusion of Nonautologous Platelets into Peripheral Vein, Percutaneous Approach (ICD-10-PCS; principal; 2017-06-01)
DX: C90.00 Multiple myeloma not having achieved remission (principal)
CPT/HCPCS: 36430; J1642; P9037

== ENCOUNTER → 2017-06-05 | Outpatient (CLI) | payer OTHER ==
[2017-06-05 17:12] VITALS: BP 104/60
== END ==
LOC: F1NOP 16:35
PROVIDERS: ATTEND Internal Medicine Hematology & Oncology
PROC: 30233R1 Transfusion of Nonautologous Platelets into Peripheral Vein, Percutaneous Approach (ICD-10-PCS; principal; 2017-06-05)
DX: C90.00 Multiple myeloma not having achieved remission (principal)
CPT/HCPCS: 36430; J1642; P9037; 82784-90; 86334-90

== ENCOUNTER 2017-06-08 14:34 | Outpatient (CLI) | payer OTHER | END 2017-06-08 15:57 | disposition home or self-care (01) | LOC: F1NOP 14:34 | PROVIDERS: ATTEND Internal Medicine Hematology & Oncology | PROC: 30233R1 Transfusion of Nonautologous Platelets into Peripheral Vein, Percutaneous Approach (ICD-10-PCS; principal; 2017-06-08) | DX: C90.00 Multiple myeloma not having achieved remission (principal); D64.81 Anemia due to antineoplastic chemotherapy; D69.6 Thrombocytopenia, unspecified; E78.00 Pure hypercholesterolemia, unspecified; E86.0 Dehydration; M25.519 Pain in unspecified shoulder; I26.99 Other pulmonary embolism without acute cor pulmonale; I82.4Y9 Acute embolism and thrombosis of unspecified deep veins of unspecified proximal lower extremity | CPT/HCPCS: 36430; 88373; J1642; P9037; 99001-90 ==

== ENCOUNTER 2017-06-15 15:42 | Outpatient (CLI) | payer OTHER ==
[2017-06-15 17:21] VITALS: BP 103/68
== END 2017-06-15 17:36 | disposition home or self-care (01) ==
LOC: F1NOP 15:42
PROVIDERS: ATTEND Internal Medicine Hematology & Oncology
PROC: 30233R1 Transfusion of Nonautologous Platelets into Peripheral Vein, Percutaneous Approach (ICD-10-PCS; principal; 2017-06-15)
DX: C90.00 Multiple myeloma not having achieved remission (principal)
CPT/HCPCS: 36430; 88373; J1642; P9037; 99001-90

== ENCOUNTER → 2017-06-19 | Outpatient (CLI) | payer OTHER ==
[2017-06-19 15:15] VITALS: BP 94/56
== END ==
LOC: F1NOP 13:48
PROVIDERS: ATTEND Internal Medicine Hematology & Oncology
PROC: 30233R1 Transfusion of Nonautologous Platelets into Peripheral Vein, Percutaneous Approach (ICD-10-PCS; principal; 2017-06-19)
DX: C90.00 Multiple myeloma not having achieved remission (principal)
CPT/HCPCS: 36430; 88373; J1642; P9037; 82784-90; 84156-90; 84166-90; 86334-90; 99001-90

== ENCOUNTER 2017-06-21 09:02 | Inpatient (IN) | payer OTHER ==
[2017-06-21 11:38] LABS: INR 1.05 (0.83-1.16); PROTIME(PATIENT) 13.9 SEC (12.0-15.0)
[2017-06-21] MEDS ORDERED: ONDANSETRON 4 MG/2 ML VIAL IVP PRN (12:25)
[2017-06-21] MEDS ORDERED: ONDANSETRON DISINTEGRATING 4 MG TAB PO PRN (12:25)
[2017-06-21] MEDS ORDERED: ACETAMINOPHEN 325 MG TAB PO PRN (12:25)
[2017-06-21] MEDS ORDERED: ALTEPLASE 2 MG VIAL IVP PRN (12:27)
--- NOTE | 2017-06-21 12:38 | PDGENHP ---
History and Physical - Chief Complaint chemotherapy infusion - History of Present Illness This is a 71 you female with hx of MM who is here for planned chemotherapy. She has a hx of Factor V Leiden and multiple VTE. She is no longer on AC. She has chronic thrombocytopenia and has been getting platelet transfusion regularly. She denies cp or sob, leg pain or leg swelling. She is not in any pain. no n/v PMHx: Multiple Myeloma, Factor V Leiden, multiple DVT's and PE's, Pancytopenia, thrombocytopenia PSHx: Cholecystectomy, stem cell transplant, IVC filter Soc: FmHx: mother with hx of VTE's History Information - Allergies/Home Medication List Allergies/Adverse Reactions: No Known Allergies Allergy (Unverified 04/21/17 20:18) Home Medications: Acyclovir [Zovirax 400 mg (*)] 400 mg PO BID 02/18/17 [Last Taken 06/21/17] Cholecalciferol Vit D3 [Vitamin D3 (*)] 1,000 units PO DAILY 02/18/17 [Last Taken 06/20/17] Dexamethasone [Decadron 4 MG (*)] 28 mg PO MO 02/18/17 [Last Taken 06/11/17] Gabapentin [Neurontin 300 MG (*)] 300 mg PO TID PRN 04/22/17 [Last Taken ] morphINE IR [morphINE IR 15 mg (*)] 15 mg PO Q3-4PRN PRN 04/22/17 [Last Taken ] Cyanocobalamin [Vitamin B12 (*)] 1,000 mcg PO DAILY 06/21/17 [Last Taken ] I have personally reviewed and updated: medical history, social history - Past Medical History pulmonary embolism Additional medical history: Multiple myeloma. Factor V Leiden heterozygote. PE in 1994 and 1996. Chronic anticoagulation, held since latter part of 2017 for thrombocytopenia. Thrombocytopenia requiring repeat transfusions - Surgical History Reports: cholecystectomy Additional surgical history: rotator cuff surgery, hand surgery, stem cell transplant, right thumb, right knee, power port placement to left - Family History Additional family history: Mom with h/o blood clots. 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 . Cor status-full Review of Systems Review of Systems: ROS: 10pt was reviewed & negative except for what was stated in HPI & below Physical Exam Physical Exam: Temp Pulse Resp BP Pulse Ox 36.3 C 97 16 108/65 98 06/21/17 10:35 06/21/17 10:35 06/21/17 10:35 06/21/17 10:35 06/21/17 10:35 Constitutional: no apparent distress, appears nourished Eyes: PERRL, EOMI Ears, Nose, Mouth, Throat: moist mucous membranes, hearing normal, ears appear normal Cardiovascular: regular rate and rhythym Respiratory: no respiratory distress, no rales or rhonchi Gastrointestinal: normoactive bowel sounds, soft, non-tender abdomen Genitourinary: no bladder fullness Skin: warm Musculoskeletal: full muscle strength Neurologic: AAOx3 Psychiatric: interacting appropriately, not anxious, not encephalopathic, thought process linear Lymph, Heme, Immunologic: No petechiae Lab Data & Imaging Review 06/21/17 11:15 06/21/17 11:15 WBC 4.47 10^3/uL (3.80-9.50) 06/21/17 11:15 RBC 2.63 10^6/uL (4.18-5.33) L 06/21/17 11:15 Hgb 8.2 g/dL (12.6-16.3) L 06/21/17 11:15 Hct 24.4 % (38.0-47.0) L 06/21/17 11:15 MCV 92.8 fL (81.5-99.8) 06/21/17 11:15 MCH 31.2 pg (27.9-34.1) 06/21/17 11:15 MCHC 33.6 g/dL (32.4-36.7) 06/21/17 11:15 RDW 17.7 % (11.5-15.2) H 06/21/17 11:15 Plt Count 10 10^3/uL (150-400) L* 06/21/17 11:15 MPV TNP 06/21/17 11:15 Neut % (Auto) 52.1 % (39.3-74.2) 06/21/17 11:15 Lymph % (Auto) 31.8 % (15.0-45.0) 06/21/17 11:15 Evans % (Auto) 11.9 % (4.5-13.0) 06/21/17 11:15 Eos % (Auto) 1.8 % (0.6-7.6) 06/21/17 11:15 Baso % (Auto) 0.4 % (0.3-1.7) 06/21/17 11:15 Nucleat RBC Rel Count 0.0 % (0.0-0.2) 06/21/17 11:15 Absolute Neuts (auto) 2.33 10^3/uL (1.70-6.50) 06/21/17 11:15 Absolute Lymphs (auto) 1.42 10^3/uL (1.00-3.00) 06/21/17 11:15 Absolute Monos (auto) 0.53 10^3/uL (0.30-0.80) 06/21/17 11:15 Absolute Eos (auto) 0.08 10^3/uL (0.03-0.40) 06/21/17 11:15 Absolute Basos (auto) 0.02 10^3/uL (0.02-0.10) 06/21/17 11:15 Absolute Nucleated RBC 0.00 10^3/uL (0-0.01) 06/21/17 11:15 Immature Gran % 2.0 % (0.0-1.1) H 06/21/17 11:15 Immature Gran # 0.09 10^3/uL (0.00-0.10) 06/21/17 11:15 PT 13.9 SEC (12.0-15.0) 06/21/17 11:15 INR 1.05 (0.83-1.16) 06/21/17 11:15 APTT 35.5 SEC (23.0-38.0) 06/21/17 11:15 Assessment & Plan Assessment: #Multiple Myeloma #Hx of VTE, PE's and DVT's #Hx of Factor V Leiden #Hx of IVC filter, in place #Pancytopenia and Thrombocytopenia Plan: -Admission -Chemotherapy per Oncology -place PICC line -Check TTE -obtain labs now, transfuse if needed -Until labs are available, hold off on DVT proph. She is no longer on chronic Anticoagulation secondary to thrombocytopenia
[2017-06-21 14:14] LABS: PLATELET COUNT 10 10^3/uL (150-400)
--- NOTE | 2017-06-21 14:45 | PDMN ---
Medical Necessity Medical necessity: Pt meets IP criteria per MD; est los >2 mn for tx of multiple myeloma; admit for PICC placement, chemotherapy, TTE, lab work & close monitoring; hx Factor V Leiden, DVTs, PEs, pancytopenia, thrombocytopenia, IVC filter in place; per H&P & order 06/21/17
--- NOTE | 2017-06-21 14:45 | GCON ---
[f rep st] CONSULTATION INPATIENT ONCOLOGY CONSULTATION DATE OF CONSULTATION: 06/21/2017 RESIDENT PHYSICIAN: Dr. Samy Mchugh OUTPATIENT ONCOLOGIST: Dr. Osiris Mcclain REASON FOR CONSULTATION: Chemotherapy for refractory multiple myeloma. HISTORY OF PRESENT ILLNESS: The patient is a 71-year-old woman with a longstanding history of multip le myeloma. She was initially diagnosed in 2009 and has had a variety of prior therapies including a utologous stem cell transplant. She has had no response to daratumumab and elotuzumab, which were he r last 2 lines of therapy, and has fairly rapidly progressive disease. She is now admitted for chemo therapy with the PACE regimen, with an eye towards taking her to a 2nd autologous stem cell transplan t. She says she feels tired but otherwise, does not have any other new symptoms. She does have speaker wirer alanis thrombocytopenia due to bone marrow involvement and has been getting platelet transfusions once t o twice a week. She reports some bruising, but no significant bleeding. PAST HISTORY: Otherwise unremarkable. CURRENT MEDICATIONS: Include acyclovir 400 mg p.o. twice daily, gabapentin 300 mg p.o. three times d aily, morphine sulfate 50 mg p.o. q.3 hours as needed. ALLERGIES: No known drug allergies. FAMILY HISTORY: Noncontributory. SOCIAL HISTORY: She is a nonsmoker, nondrinker. REVIEW OF SYSTEMS: Apart from pertinent positives in HPI, a 14-point review of systems is negative. EXAMINATION: VITAL SIGNS: Temperature is 36.3, blood pressure 108/65, heart rate 97, oxygen saturat ion 98% on room air. GENERAL: She was in no acute distress. HEENT: Sclerae anicteric. Oropharynx clear. NECK: Supple without lymphadenopathy. LUNGS: Clear to auscultation bilaterally. CARDIAC: Regular rate and rhythm. No murmurs, gallops, rubs. ABDOMEN: Normoactive bowel sounds. Nontende r. EXTREMITIES: Without edema, 2+ pulses. NEUROLOGIC: She is alert and oriented x3. Strength, se nsation were normal. LABORATORY DATA: White count 4.47, hemoglobin 8.2, platelets 10. IMPRESSION: This is a 71-year-old woman admitted for a 4-day regimen of chemotherapy. She will be r eceiving low-dose cisplatin, doxorubicin, Cytoxan, and etoposide along with oral dexamethasone. She will receive appropriate prophylactic antinausea medications. If her platelet count falls below 10, we can give her a transfusion. She has been fairly refractory to transfusions and therefore, I would like to be conservative about their use to avoid auto-immunizing her to future transfusions. We will continue to follow the patient closely with you while she is in a hospital. /[id number]/MODL
--- NOTE | 2017-06-21 15:36 | ECHO ---
[email or web address] [address] [address] Main: [phone] Fax: Transthoracic Echocardiogram Name: VENITA SURESH MR#: [id number] Study Date: 06/21/2017 Study Time: 01:41 PM Date of : 1945 Age: 71 year(s) Height: 160 cm (63 in.) Weight: 45.36 kg (100 lb.) BSA: 1.44 m2 Gender: Female Examination: Echo Indication: Pre chemotherapy assessment Image Quality: Contrast: Requested by: Samy Mchugh BP: 108 mmHg/65 mmHg Heart Rate: Rhythm: Indication: Pre chemotherapy assessment Procedure Staff Restorative Aide: Rosana Fernandes [facility] Reading Physician: Dillon Yanes MD Requesting Provider: Conclusions: No pericardial effusion. Preserved left ventricular systolic function with ejection fraction of 60-65%. No significant valvular abnormalities by Doppler /2 dimensional study. Measurements: Chambers Valvular Assessment AV/MV Valvular Assessment TV/PV Normal Normal Normal Name Value Range Name Value Range Name Value Range Ao Cassy (MM): 3.3 cm (2.2 cm-3.7 AV Vmax: 1.42 m/s (1 m/s-1.7 cm) m/s) IVSd (2D): 0.6 cm (0.6 cm-1.1 AV maxP mmHg ( - ) cm) AV meanP mmHg ( - ) LVDd (2D): 4.4 cm (3.9 cm-5.3 MV E Vmax: 0.55 m/s ( - ) cm) MV A Vmax: 0.79 m/s ( - ) LVDs (2D): 2.8 cm (2.1 cm-4 MV E/A: 0.70 ( - ) cm) LVPWd (2D): 0.6 cm ( - ) LVEF (MOD4): 64 % (>=55 %) EF Range: 60-65 % Continued Measurements: Chambers Valvular Assessment AV/MV Name Value Name Value LADs: 3.1 cm MV E/E' Septal: 7.40 LADs Lon.7 cm MV E/E' Lateral: 6.10 LA Area: 14.6 cm2 Findings: Left Ventricle: Patient: EVNITA SURESH Study Date: 06/21/2017 Page 1 of 2 01:41 PM Normal size left ventricle. No LV hypertrophy. Normal global systolic LV function. The ejection fraction is estimated to be 60-65 %. No regional wall motion abnormality. Right Ventricle: Normal size right ventricle. Left Atrium: The left atrium is normal in size. Right Atrium: The right atrium is normal in size. Mitral Valve: The mitral valve is normal in appearance and function. Trivial mitral valve regurgitation. Aortic Valve: The aortic valve is normal in appearance and function. The aortic valve is tri-leaflet. There is no aortic valve regurgitation. Tricuspid Valve: The tricuspid valve is normal in appearance and function. Trivial tricuspid valve regurgitation. Pulmonic Valve: Pulmonary valve not well visualized. Aorta: The aorta is normal. Pericardium: No pericardial effusion. (No Signature Object) Patient: VENITA SURESH Study Date: 06/21/2017 Page 2 of 2 01:41 PM [id number]
[2017-06-21] MEDS: D5W 1/2 NS 1,000 ML IV SCH (15:47)
[2017-06-21] MEDS: PALONOSETRON HCL 0.25 MG/5 ML VIAL IVP SCH (15:52)
[2017-06-21] MEDS: DEXAMETHASONE 20 MG in D5W 50 ML IV SCH (16:19)
[2017-06-21] MEDS: DOXORUBICIN IV SCH (17:28)
[2017-06-21] MEDS: NS IV SCH ×2 (17:28)
[2017-06-21] MEDS: CYCLOPHOSPHAMIDE IV SCH (17:28)
[2017-06-21] MEDS: CISPLATIN IV SCH (17:28)
[2017-06-21] MEDS: ETOPOSIDE IV SCH (17:28)
[2017-06-21] MEDS: ACYCLOVIR 400 MG TAB PO SCH (20:53)
[2017-06-22] MEDS: D5W 1/2 NS 1,000 ML IV SCH (00:09)
[2017-06-22 04:14] LABS: PLATELET COUNT 6 10^3/uL (150-400)
[2017-06-22] MEDS ORDERED: ACETAMINOPHEN 325 MG TAB PO ONE ×2 (08:42→13:30)
--- NOTE | 2017-06-22 09:21 | SOAPPROG ---
SOAP Progress Note Assessment/Plan: Assessment: 1. Refractory myeloma 2. Thrombocytopenia due to #1 3. Renal insufficiency due to #1 Renal function somewhat improved, likely due to hydration. Tolerating chemo well. Plan: - continue chemo (today = day 2 of 4) - will transfuse platelets 06/22/17 09:20 Subjective: feels well. Objective: exam unchanged Vital Signs Temp Pulse Resp BP Pulse Ox 36.4 C 80 16 96/60 L 100 06/22/17 08:23 06/22/17 08:23 06/22/17 08:23 06/22/17 08:23 06/22/17 08:23 Laboratory Results 06/22/17 03:50 06/22/17 03:50 06/21/17 06/22/17 06/23/17 05:59 05:59 05:59 Intake Total 605 2129 Output Total 1750 Balance -1145 2129 PT 13.9 SEC (12.0-15.0) 06/21/17 11:15 INR 1.05 (0.83-1.16) 06/21/17 11:15 ICD10 Worksheet Patient Problems: Problems Problem Status Onset Chest pain Acute Multiple myeloma Acute Pulmonary embolism Acute Thrombocytopenia Acute
[2017-06-22] MEDS: ACYCLOVIR 400 MG TAB PO SCH ×2 (09:25→20:47)
[2017-06-22] MEDS: CYANO/VITAMIN B12 1000 MCG TAB PO SCH (09:25)
[2017-06-22] MEDS: CHOLECALCIFEROL VIT D3 1,000 UNITS TAB PO SCH (09:25)
--- NOTE | 2017-06-22 12:47 | HOSPPROG ---
Hospitalist Progress Note Assessment/Plan: #Refractory Multiple Myeloma -Receiving chemo per Oncology #Pancytopenia with profound Thrombocytopenia -Transfuse platelets below 10 -give 1 unit now -monitor H/H #Renal insufficiency due to Multiple Myeloma -cont to monitor while on IVF Plan: per above cont IVF cont Acyclovir Cont Dexamethasone Serial Labs Holding DVT proph due to Thrombocytopenia Subjective: platelets are low. Will have a platelet transfusion. no cp or sob. no n/v Objective: Vital Signs Temp Pulse Resp BP Pulse Ox 36.9 C 91 16 99/62 L 100 06/22/17 12:28 06/22/17 12:28 06/22/17 12:28 06/22/17 12:28 06/22/17 12:28 Laboratory Results 06/22/17 03:50 06/22/17 03:50 06/21/17 06/22/17 06/23/17 05:59 05:59 05:59 Intake Total 605 2129 Output Total 1750 Balance -1145 2129 PT 13.9 SEC (12.0-15.0) 06/21/17 11:15 INR 1.05 (0.83-1.16) 06/21/17 11:15 - Physical Exam Constitutional: no apparent distress Eyes: EOMI Ears, Nose, Mouth, Throat: moist mucous membranes Cardiovascular: regular rate and rhythym Respiratory: no respiratory distress Gastrointestinal: normoactive bowel sounds Genitourinary: no bladder fullness Skin: warm Neurologic: AAOx3 Psychiatric: interacting appropriately, not anxious, not encephalopathic Lymph, Heme, Immunologic: No petechiae ICD10 Worksheet Patient Problems: Problems Problem Status Onset Chest pain Acute Multiple myeloma Acute Pulmonary embolism Acute Thrombocytopenia Acute
[2017-06-22] MEDS: DEXAMETHASONE 20 MG in D5W 50 ML IV SCH (16:04)
--- NOTE | 2017-06-22 16:27 | ASMTCMCOM ---
CM Note CM Note Notes: Pt admitted for 4 days of chemotherapy secondary to multiple myeloma. Per MD notes, PICC line placed. Pt is and lives with her spouse. 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 Discharge needs remain unclear at this time. CM will continue to follow. Current Discharge Plan: To be determined Date Signed: 06/22/2017 04:26 PM Electronically Signed By:Nasra Mayes RN
[2017-06-22] MEDS: CISPLATIN IV SCH (17:12)
[2017-06-22] MEDS: ETOPOSIDE IV SCH (17:12)
[2017-06-22] MEDS: CYCLOPHOSPHAMIDE IV SCH (17:12)
[2017-06-22] MEDS: NS IV SCH ×2 (17:12→17:13)
[2017-06-22] MEDS: DOXORUBICIN IV SCH (17:13)
[2017-06-22] MEDS: GABAPENTIN 300 MG CAP PO PRN (20:47)
[2017-06-23] MEDS: D5W 1/2 NS 1,000 ML IV SCH ×2 (05:14→17:38)
[2017-06-23 05:45] LABS: PLATELET COUNT 30 10^3/uL (150-400)
[2017-06-23] MEDS: CHOLECALCIFEROL VIT D3 1,000 UNITS TAB PO SCH (09:35)
[2017-06-23] MEDS: ACYCLOVIR 400 MG TAB PO SCH ×2 (09:35→20:30)
[2017-06-23] MEDS: CYANO/VITAMIN B12 1000 MCG TAB PO SCH (09:35)
--- NOTE | 2017-06-23 09:48 | SOAPPROG ---
SOAP Progress Note Assessment/Plan: Assessment: SOAP Progress Note Assessment/Plan: Assessment: 1. Refractory myeloma-receiving PACE chemotherapy. 2. Thrombocytopenia due to #1 3. Renal insufficiency due to #1 4. Anemia due to #1. Renal function improved with creat of 1.2. Tolerating chemo well. Plan: - continue chemo (today = day 3 of 4) - will transfuse RBC today for Hct 19 - does not need plts today. Subjective: feels well. No bleeding symptoms. no nausea, no diarrhea Objective: Vital Signs Temp Pulse Resp BP Pulse Ox 36.6 C 91 16 100/50 L 98 06/23/17 08:48 06/23/17 08:48 06/23/17 08:48 06/23/17 09:08 06/23/17 08:48 Laboratory Results 06/23/17 05:12 06/23/17 05:12 06/22/17 06/23/17 06/24/17 05:59 05:59 05:59 Intake Total 605 4467 Output Total 1750 2300 450 Balance -1145 2167 -450 PT 13.9 SEC (12.0-15.0) 06/21/17 11:15 INR 1.05 (0.83-1.16) 06/21/17 11:15 Physical Exam - Physical Exam General Appearance: alert, no apparent distress Neck: supple Respiratory: lungs clear Abdomen: non-tender, soft Skin: other (some ecchymosis in right upper arm around PICC. ) Extremities: No pedal edema Neuro/Psych: alert, normal mood/affect ICD10 Worksheet Patient Problems: Problems Problem Status Onset Chest pain Acute Multiple myeloma Acute Pulmonary embolism Acute Thrombocytopenia Acute
--- NOTE | 2017-06-23 13:16 | HOSPPROG ---
Hospitalist Progress Note Assessment/Plan: #Refractory Multiple Myeloma -Receiving chemo per Oncology #Pancytopenia with profound Thrombocytopenia -Transfuse platelets below 10. s/p 1 unit transfused on 06/22. -Transfuse 1 unit PRBC today #Renal insufficiency due to Multiple Myeloma -cont to monitor while on IVF Plan: per above cont IVF cont Acyclovir Cont Dexamethasone PRBC transfusion no platelets today repeat labs in a.m. Holding DVT proph due to Thrombocytopenia Subjective: no cp or sob. will have a transfusion today. Objective: Vital Signs Temp Pulse Resp BP Pulse Ox 36.7 C 78 16 102/60 99 06/23/17 12:52 06/23/17 12:52 06/23/17 12:52 06/23/17 12:52 06/23/17 12:52 Laboratory Results 06/23/17 05:12 06/23/17 05:12 06/22/17 06/23/17 06/24/17 05:59 05:59 05:59 Intake Total 605 4467 Output Total 1750 2300 450 Balance -1145 2167 -450 PT 13.9 SEC (12.0-15.0) 06/21/17 11:15 INR 1.05 (0.83-1.16) 06/21/17 11:15 - Physical Exam Constitutional: no apparent distress, not in pain Eyes: PERRL Ears, Nose, Mouth, Throat: moist mucous membranes, hearing normal Cardiovascular: regular rate and rhythym, No edema Respiratory: no respiratory distress, no rales or rhonchi, clear to auscultation Gastrointestinal: normoactive bowel sounds, soft, non-tender abdomen Skin: warm Musculoskeletal: full muscle strength Neurologic: AAOx3 Psychiatric: interacting appropriately, not anxious, not encephalopathic Lymph, Heme, Immunologic: No petechiae ICD10 Worksheet Patient Problems: Problems Problem Status Onset Chest pain Acute Multiple myeloma Acute Pulmonary embolism Acute Thrombocytopenia Acute
[2017-06-23] MEDS: GABAPENTIN 300 MG CAP PO PRN (17:39)
[2017-06-23] MEDS: DEXAMETHASONE 20 MG in D5W 50 ML IV SCH (17:39)
[2017-06-23] MEDS: CISPLATIN IV SCH (18:19)
[2017-06-23] MEDS: ETOPOSIDE IV SCH (18:19)
[2017-06-23] MEDS: NS IV SCH ×3 (18:19→22:00)
[2017-06-23] MEDS: CYCLOPHOSPHAMIDE IV SCH (18:19)
[2017-06-23] MEDS: DOXORUBICIN IV SCH ×2 (20:30→22:00)
[2017-06-24] MEDS: D5W 1/2 NS 1,000 ML IV SCH (05:36)
[2017-06-24 05:55] LABS: PLATELET COUNT 10 10^3/uL (150-400)
[2017-06-24] MEDS ORDERED: NS 1,000 ML IV SCH ×2 (09:30)
[2017-06-24] MEDS: CHOLECALCIFEROL VIT D3 1,000 UNITS TAB PO SCH (10:40)
[2017-06-24] MEDS: ACYCLOVIR 400 MG TAB PO SCH ×2 (10:41→20:27)
[2017-06-24] MEDS: CYANO/VITAMIN B12 1000 MCG TAB PO SCH (10:41)
--- NOTE | 2017-06-24 12:07 | HOSPPROG ---
Hospitalist Progress Note Assessment/Plan: #Refractory Multiple Myeloma -Receiving chemo per Oncology #Pancytopenia with profound Thrombocytopenia -Transfuse platelets below 10. s/p 1 unit transfused on 06/22. Platelets are 10 today, will hold off on transfusion pending Oncology evaluation -s/p 1 unit PRBC on 06/23. No indications for transfusion today. #Renal insufficiency due to Multiple Myeloma -cont to monitor while on IVF -Overall stable on unchanged Plan: per above cont IVF Chemo per Oncology Transfusion PRN cont Acyclovir Cont Dexamethasone repeat labs in a.m. Holding DVT proph due to Thrombocytopenia D/W Oncology Subjective: no chest pain, no fever, no n/v. Platelets have dropped Objective: Vital Signs Temp Pulse Resp BP Pulse Ox 36.7 C 79 18 108/54 L 97 06/24/17 10:35 06/24/17 10:35 06/24/17 10:35 06/24/17 10:35 06/24/17 10:35 Laboratory Results 06/24/17 05:35 06/24/17 05:35 06/23/17 06/24/17 06/25/17 05:59 05:59 05:59 Intake Total 4467 1977 Output Total 2300 3400 Balance 2167 -1423 PT 13.9 SEC (12.0-15.0) 06/21/17 11:15 INR 1.05 (0.83-1.16) 06/21/17 11:15 - Physical Exam Constitutional: no apparent distress Eyes: PERRL, EOMI Ears, Nose, Mouth, Throat: moist mucous membranes, hearing normal Cardiovascular: regular rate and rhythym, No edema Respiratory: no respiratory distress, no rales or rhonchi, clear to auscultation Gastrointestinal: normoactive bowel sounds, soft, non-tender abdomen Skin: warm Musculoskeletal: full muscle strength Neurologic: AAOx3 Psychiatric: interacting appropriately, not anxious, not encephalopathic ICD10 Worksheet Patient Problems: Problems Problem Status Onset Chest pain Acute Multiple myeloma Acute Pulmonary embolism Acute Thrombocytopenia Acute
--- NOTE | 2017-06-24 12:56 | SOAPPROG ---
SOAP Progress Note Assessment/Plan: Assessment: SOAP Progress Note Assessment/Plan: Assessment: 1. Refractory myeloma-receiving PACE (doxorubicin, cisplatin, cyclophosphomide, etoposide) chemotherapy-tolerating chemo well. 2. Thrombocytopenia due to #1-no bleeding. 3. Renal insufficiency due to #1 4. Anemia due to #1. Plan: - continue chemo. Likely not finished until late Sunday night. - will need neulasta to be given in the office on Sunday. - no transfusions today, but likely platelets tomorrow and/or PRBC. Should receive irradiated units. - has emend at home. prescribed by Dr. Mcclain. will bring in and she will take today, tomorrow and sunday. 06/24/17 12:55 06/24/17 12:58 Subjective: feels well, no nausea Objective: Vital Signs Temp Pulse Resp BP Pulse Ox 36.4 C 78 16 112/66 100 06/24/17 12:45 06/24/17 12:45 06/24/17 12:45 06/24/17 12:45 06/24/17 12:45 Laboratory Results 06/24/17 05:35 06/24/17 05:35 06/23/17 06/24/17 06/25/17 05:59 05:59 05:59 Intake Total 4467 1977 Output Total 2300 3400 Balance 2167 -1423 PT 13.9 SEC (12.0-15.0) 06/21/17 11:15 INR 1.05 (0.83-1.16) 06/21/17 11:15 Physical Exam - Physical Exam General Appearance: alert, no apparent distress Neck: supple Respiratory: lungs clear Abdomen: non-tender, soft Neuro/Psych: alert, oriented x 3 ICD10 Worksheet Patient Problems: Problems Problem Status Onset Chest pain Acute Multiple myeloma Acute Pulmonary embolism Acute Thrombocytopenia Acute
[2017-06-24] MEDS: NS 1,000 ML IV SCH (13:39)
[2017-06-24] MEDS ORDERED: NS 500 ML IV SCH ×2 (15:00)
--- NOTE | 2017-06-24 15:33 | ASMTCMCOM ---
CM Note CM Note Notes: Pt admitted for chemo for multiple myeloma. Pt has a nenw PICC and has used [facility] in past. Asked pt about DC needs. Pt will be going to [facility] for stem cell tsplnt within a few days of DC. She will not need HC and will likely need only a few PICC flushes that RN can provide. Date Signed: 06/24/2017 03:32 PM Electronically Signed By:Veronica Louis LCSW
[2017-06-24] MEDS: GABAPENTIN 300 MG CAP PO PRN (20:26)
[2017-06-24] MEDS: DEXAMETHASONE 20 MG in D5W 50 ML IV SCH (20:27)
[2017-06-24] MEDS ORDERED: PALONOSETRON HCL 0.25 MG/5 ML VIAL IVP SCH (20:30)
[2017-06-24] MEDS: PALONOSETRON HCL 0.25 MG/5 ML VIAL IVP SCH (20:36)
[2017-06-24] MEDS ORDERED: APREPITANT PO ONE (22:00)
[2017-06-24] MEDS: CYCLOPHOSPHAMIDE IV SCH (22:05)
[2017-06-24] MEDS: CISPLATIN IV SCH (22:05)
[2017-06-24] MEDS: ETOPOSIDE IV SCH (22:05)
[2017-06-24] MEDS: DOXORUBICIN IV SCH (22:05)
[2017-06-24] MEDS: NS IV SCH ×2 (22:05)
[2017-06-25] MEDS: NS 1,000 ML IV SCH ×2 (04:22→18:02)
[2017-06-25 05:11] LABS: PLATELET COUNT 5 10^3/uL (150-400)
--- NOTE | 2017-06-25 08:25 | HOSPPROG ---
Hospitalist Progress Note Assessment/Plan: #Refractory MM: admitted for chemo. May be candidate for 2nd stem cell transplant -complete C1 of PACE today. Neulasta tomorrow #Pancytopenia: transfuse irradiated platelets today #Nausea: PRN antiemetics. Eating and drinking ok #Fatigue: due to chemo #Constipation: having BMs #h/o DVT: IVC filter #DVT ppx: SCDs with low platelets #Disp: DC tomorrow if clinically stable Subjective: fatigued Objective: Vital Signs Temp Pulse Resp BP Pulse Ox 36.6 C 70 16 122/66 H 96 06/25/17 04:33 06/25/17 04:33 06/25/17 04:33 06/25/17 04:33 06/25/17 04:33 Laboratory Results 06/25/17 04:30 06/25/17 04:30 06/24/17 06/25/17 06/26/17 05:59 05:59 05:59 Intake Total 1977 2441.2 Output Total 3400 1900 Balance -1423 541.2 PT 13.9 SEC (12.0-15.0) 06/21/17 11:15 INR 1.05 (0.83-1.16) 06/21/17 11:15 - Physical Exam Constitutional: no apparent distress Eyes: PERRL, pale conjunctiva Ears, Nose, Mouth, Throat: moist mucous membranes Cardiovascular: regular rate and rhythym Respiratory: no respiratory distress Gastrointestinal: normoactive bowel sounds Genitourinary: no bladder fullness Skin: warm Musculoskeletal: full muscle strength, other (port looks good. RUE PICC without signs of infection) Neurologic: AAOx3, CN II-XII Intact Psychiatric: interacting appropriately ICD10 Worksheet Patient Problems: Problems Problem Status Onset Chest pain Acute Multiple myeloma Acute Pulmonary embolism Acute Thrombocytopenia Acute
[2017-06-25] MEDS: ACYCLOVIR 400 MG TAB PO SCH ×2 (09:09→20:50)
[2017-06-25] MEDS: CYANO/VITAMIN B12 1000 MCG TAB PO SCH (09:09)
[2017-06-25] MEDS: CHOLECALCIFEROL VIT D3 1,000 UNITS TAB PO SCH (09:09)
[2017-06-25] MEDS: GABAPENTIN 300 MG CAP PO PRN ×3 (11:25→20:57)
--- NOTE | 2017-06-25 11:45 | SOAPPROG ---
SOAP Progress Note Assessment/Plan: Assessment/Plan: 71 yo woman w refractory myeloma admitted for PACE (cisplatin, adriamycin, cyclophosphamide, and etoposide) 1. Refractory myeloma finishes C1 of PACE today will be evaluated for 2nd auto-stem cell at [facility] need to receive Neulasta as outpt tomorrow 2. Thrombocytopenia - 2/2 #1 requires plts 1-2x/week need to be irradiated 3. nausea - Emend and outpt anti-emetics 4. Hx of DVT/PE - s/pIVC filter 06/25/17 11:41 06/25/17 11:44 06/25/17 11:47 Subjective: No acute events denies new issues Objective: Vital Signs Temp Pulse Resp BP Pulse Ox 36.4 C 75 15 138/80 H 99 06/25/17 09:12 06/25/17 09:12 06/25/17 09:12 06/25/17 09:12 06/25/17 09:12 Laboratory Results 06/25/17 04:30 06/25/17 04:30 06/24/17 06/25/17 06/26/17 05:59 05:59 05:59 Intake Total 1976 2441.2 Output Total 3400 1900 Balance -1423 541.2 PT 13.9 SEC (12.0-15.0) 06/21/17 11:15 INR 1.05 (0.83-1.16) 06/21/17 11:15 Gen- NAD HEENT - anicteric sclera, no mucositis CV - RRR Chest - clear abd - soft, NT, BS+ ICD10 Worksheet Patient Problems: Problems Problem Status Onset Chest pain Acute Multiple myeloma Acute Pulmonary embolism Acute Thrombocytopenia Acute
[2017-06-25] MEDS ORDERED: DEXAMETHASONE 4 MG TAB PO SCH (12:26)
--- NOTE | 2017-06-25 16:44 | ASMTCMCOM ---
CM Note CM Note Notes: Chart reviewed. 71 year old female with Multiple Myeloma might potentially be eligible for second stem cell therapy, timing is uncertain. Will need Home infusion service for an uncertain period of time and this is covered at 100 percent. Likely disposition to home tomorrow. [facility] aware. CM to follow. Date Signed: 06/25/2017 04:43 PM Electronically Signed By:Nori Rehman RN
[2017-06-25] MEDS ORDERED: APREPITANT PO SCH (21:00)
[2017-06-26] MEDS: ACYCLOVIR 400 MG TAB PO SCH (08:43)
[2017-06-26] MEDS: CHOLECALCIFEROL VIT D3 1,000 UNITS TAB PO SCH (08:43)
[2017-06-26] MEDS: CYANO/VITAMIN B12 1000 MCG TAB PO SCH (08:43)
[2017-06-26 09:02] LABS: PLATELET COUNT 36 10^3/uL (150-400)
--- NOTE | 2017-06-26 09:58 | HOSPPROG ---
Hospitalist Progress Note Assessment/Plan: #Refractory MM: admitted for chemo. May be candidate for 2nd stem cell transplant -completed C1 of PACE Neulasta #Pancytopenia: transfuse irradiated platelets 06/26. Requiring transfusions 1-2/ weekly #Nausea: PRN antiemetics. Eating and drinking ok #CKD: Cr 1.1 at baseline #Fatigue: due to chemo #Constipation: having BMs #h/o DVT: IVC filter #DVT ppx: SCDs with low platelets #Disp: DC today Subjective: no nausea this morning Objective: Vital Signs Temp Pulse Resp BP Pulse Ox 36.5 C 58 L 18 138/79 H 98 06/26/17 08:00 06/26/17 08:00 06/26/17 08:00 06/26/17 08:00 06/26/17 08:00 Laboratory Results 06/26/17 08:45 06/25/17 06/26/17 06/27/17 05:59 05:59 05:59 Intake Total 2441.2 2785.6 Output Total 1900 3700 500 Balance 541.2 -914.4 -500 PT 13.9 SEC (12.0-15.0) 06/21/17 11:15 INR 1.05 (0.83-1.16) 06/21/17 11:15 - Physical Exam Constitutional: no apparent distress Eyes: PERRL Ears, Nose, Mouth, Throat: moist mucous membranes, No no oral mucosal ulcers, No oral thrush Cardiovascular: regular rate and rhythym Respiratory: no respiratory distress, no rales or rhonchi Gastrointestinal: normoactive bowel sounds Genitourinary: no bladder fullness Skin: warm Musculoskeletal: full muscle strength Neurologic: AAOx3, CN II-XII Intact Psychiatric: interacting appropriately ICD10 Worksheet Patient Problems: Problems Problem Status Onset Chest pain Acute Thrombocytopenia Acute Multiple myeloma Acute Pulmonary embolism Acute
--- NOTE | 2017-06-26 11:15 | GDS ---
[f rep st] DISCHARGE SUMMARY DISCHARGE DIAGNOSES: 1. Recurrent multiple myeloma. 2. Pancytopenia. 3. Nausea. 4. Chronic kidney disease, creatinine 1.1. 5. Fatigue. 6. Constipation. 7. History of deep venous thrombosis with filter. 8. Factor V Leiden. HISTORY OF PRESENT ILLNESS: A 71-year-old female with recurrent multiple myeloma, admitted for planned chemotherapy. She has a history of factor V Leiden. She denies any fevers, chills, or sweats. No pain. HOSPITAL COURSE BY PROBLEM: 1. Recurrent multiple myeloma: She was admitted for elective chemotherapy, completed cycle 1 PACE. Neulasta this afternoon. Plan for repeat bone marrow transplant. 2. Thrombocytopenia: from chemo and MM. Requires platelet transfusions in 1-2 weeks. Need it to be irradiated. 3. Nausea: Emend and p.r.n. Compazine. 4. History of DVT/PE with factor V Leiden, not on anticoagulation with thrombocytopenia. She has a filter in place. 5. Anemia/leukopenia: transfused 1 unit RBC, Neulasta this afternoon in clinic DISPOSITION: Patient is stable for discharge home with her . MEDICATIONS: New, Compazine. FOLLOW UP: Dr. Mcclain on 06/27/2017 at 9:40. /[id number]/MODL MTDD
[2017-06-26] MEDS: GABAPENTIN 300 MG CAP PO PRN (11:26)
[2017-06-26] MEDS ORDERED: ONDANSETRON DISINTEGRATING 4 MG TAB PO PRN (16:00)
[2017-06-26] MEDS ORDERED: ONDANSETRON 4 MG/2 ML VIAL IVP PRN (16:00)
[2017-06-26 18:42] VITALS: BP 138/82
--- NOTE | 2017-06-27 14:43 | ASDISCHSUM ---
Discharge Information Plan Status: Medically Cleared to Leave: Discharge Date:06/26/2017 07:32 PM CM D/C Disposition: ADT D/C Disposition:Home, Routine, Self-Care Projected Discharge Date:06/27/2017 11:00 AM Transportation at D/C: Discharge Delay Reason: Follow-Up Date:06/27/2017 11:00 AM Discharge Slot: Final Diagnosis: Placement Information Referral Type:Home Infusion Referral ID:[id number] Provider Name:[facility] ([facility]) Address 1:[address] Address 2: City:[place] Selection Factors: State:[place] Patient Contact Information Contact Name:TEJ Relationship: Address:[address] City:[place] Alternate Phone: State/Zip Code:[place] [address] Email: Financial Information Financial Class:Medicare Primary Plan Desc:MEDICARE INPATIENT Primary Plan Number:[id number] Secondary Plan Desc:[facility] Secondary Plan Number:[id number] Assessment Information [facility] CM Progress Note CM Note CM Note Notes: Pt admitted for 4 days of chemotherapy secondary to multiple myeloma. Per MD notes, PICC line placed. Pt is and lives with her spouse. 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 Discharge needs remain unclear at this time. CM will continue to follow. Current Discharge Plan: To be determined Date Signed: 06/22/2017 04:26 PM Electronically Signed By:Nasra Mayes RN [facility] CM Progress Note CM Note CM Note Notes: Pt admitted for chemo for multiple myeloma. Pt has a nenw PICC and has used [facility] in past. Asked pt about DC needs. Pt will be going to [facility] for stem cell tsplnt within a few days of DC. She will not need HC and will likely need only a few PICC flushes that RN can provide. Date Signed: 06/24/2017 03:32 PM Electronically Signed By:Veronica Louis LCSW [facility] CM Progress Note CM Note CM Note Notes: Chart reviewed. 71 year old female with Multiple Myeloma might potentially be eligible for second stem cell therapy, timing is uncertain. Will need Home infusion service for an uncertain period of time and this is covered at 100 percent. Likely disposition to home tomorrow. [facility] aware. CM to follow. Date Signed: 06/25/2017 04:43 PM Electronically Signed By:Nori Rehman RN Case Management Discharge Plan Note Case Management Discharge Discharge Order Complete? Answers: Yes Patient to Obtain Answers: Independently Medications Transportation Arranged Answers: Family/Friends Family Notified Answers: Yes Discharge Comments Notes: Patient discharged home with . PICC line removed and port de-accessed, so no need for infusion services. [facility] notified. No other discharge needs identified. Date Signed: 06/26/2017 12:01 PM Electronically Signed By:Samantha Vivas RN Intervention Information Intervention Type:*IM-Signed Date of Service:06/26/2017 11:25 AM Patient Type:Inpatient Staff Member:Yudi De Hours: Discipline: Severity: Comment:
== END 2017-06-26 19:32 | disposition home or self-care (01) | DRG 846 ==
LOC: F1N 10:14
PROVIDERS: ADMIT Family Medicine; ATTEND Family Medicine
PROC: 3E03305 Introduction of Other Antineoplastic into Peripheral Vein, Percutaneous Approach (ICD-10-PCS; principal; 2017-06-21)
PROC: 02HV33Z Insertion of Infusion Device into Superior Vena Cava, Percutaneous Approach (ICD-10-PCS; 2017-06-21)
PROC: 30233R1 Transfusion of Nonautologous Platelets into Peripheral Vein, Percutaneous Approach (ICD-10-PCS; 2017-06-22)
PROC: 30233N1 Transfusion of Nonautologous Red Blood Cells into Peripheral Vein, Percutaneous Approach (ICD-10-PCS; 2017-06-23)
DX: Z51.11 Encounter for antineoplastic chemotherapy (principal); D61.810 Antineoplastic chemotherapy induced pancytopenia; C90.00 Multiple myeloma not having achieved remission; D68.51 Activated protein C resistance; N18.9 Chronic kidney disease, unspecified; K59.00 Constipation, unspecified; Z86.718 Personal history of other venous thrombosis and embolism; Z86.711 Personal history of pulmonary embolism
CPT/HCPCS: 99001-90; C1751; J1100; J1200; J1642; J2469; J2997; J9000; J9060; J9070; J9181; P9016; P9037; P9040

== ENCOUNTER 2017-06-29 16:32 | Outpatient (CLI) | payer OTHER | END 2017-06-29 18:10 | disposition home or self-care (01) | LOC: F1NOP 16:32 | PROVIDERS: ATTEND Internal Medicine Hematology & Oncology | PROC: 30233R1 Transfusion of Nonautologous Platelets into Peripheral Vein, Percutaneous Approach (ICD-10-PCS; principal; 2017-06-29) | DX: C90.00 Multiple myeloma not having achieved remission (principal) | CPT/HCPCS: 88373; J1642; P9037; 99001-90 ==

== ENCOUNTER → 2017-07-03 | Outpatient (CLI) | payer OTHER ==
[2017-07-03 17:23] VITALS: BP 100/58
== END ==
LOC: F1NOP 16:06
PROVIDERS: ATTEND Internal Medicine Hematology & Oncology
PROC: 30233R1 Transfusion of Nonautologous Platelets into Peripheral Vein, Percutaneous Approach (ICD-10-PCS; principal; 2017-07-03)
DX: C90.00 Multiple myeloma not having achieved remission (principal)
CPT/HCPCS: 36430; 88373; J1642; P9037; 99001-90

== ENCOUNTER → 2017-07-12 | Outpatient (CLI) | payer OTHER | LOC: FIMAGING 12:59 | PROVIDERS: ATTEND Nurse Practitioner | DX: I82.B11 Acute embolism and thrombosis of right subclavian vein (principal); I82.611 Acute embolism and thrombosis of superficial veins of right upper extremity ==

== ENCOUNTER 2017-11-18 20:35 | Inpatient (IN) | payer OTHER ==
[2017-11-18] MEDS ORDERED: NS 1,400 ML IV ONE (21:26)
--- NOTE | 2017-11-18 21:30 | EDPHY ---
H & P Stated Complaint: fever Time Seen by Provider: 11/18/17 21:17 HPI/ROS: CHIEF COMPLAINT: Fever HISTORY OF PRESENT ILLNESS: The patient is a 71-year-old female with a history of multiple myeloma with a stem cell transplant in August. 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 She has been doing well until yesterday when she developed a fever of 102. She called her oncologist Dr. Kirby [facility] ([place], [place]) [facility] [place] in [place] who suggest that she take Tylenol and wait to see how she felt today. Today the patient's fever has remained elevated. She called back and spoke with a Dr. Phillips who recommended she come to the ER. Their phone number is [phone]. She does not have a sore throat. No chest pain or shortness of breath. No cough. No abdominal pain. No urinary symptoms. No rash or skin wounds. No headache. She does have diffuse body aches. Severity: Moderate Modifying factors: Tylenol REVIEW OF SYSTEMS: Constitutional: denies: chills, fever, recent illness, recent injury EENTM: denies: blurred vision, double vision, nose congestion Respiratory: denies: cough, shortness of breath Cardiac: denies: chest pain, irregular heart rate, lightheadedness, palpitations Gastrointestinal/Abdominal: denies: abdominal pain, diarrhea, nausea, vomiting, blood streaked stools Genitourinary: denies: dysuria, frequency, hematuria, pain Musculoskeletal: See HPI Skin: denies: lesions, rash, jaundice, bruising Neurological: denies: headache, numbness, paresthesia, tingling, dizziness, weakness Hematologic/Lymphatic: denies: blood clots, easy bleeding, easy bruising Immunologic/allergic: denies: HIV/AIDS, transplant 10 systems reviewed and negative except as noted EXAM: GENERAL: Well-appearing, well-nourished and in no acute distress. HEAD: Atraumatic, normocephalic. EYES: Pupils equal round and reactive to light, extraocular movements intact, sclera anicteric, conjunctiva are normal. ENT: TMs normal, nares patent, oropharynx clear without exudates. Moist mucous membranes. NECK: Normal range of motion, supple without lymphadenopathy or JVD. LUNGS: Breath sounds clear to auscultation bilaterally and equal. No wheezes rales or rhonchi. HEART: Regular rate and rhythm without murmurs, rubs or gallops. ABDOMEN: Soft, nontender, normoactive bowel sounds. No guarding, no rebound. No masses appreciated. BACK: No CVA tenderness, no spinal tenderness, step-offs or deformities EXTREMITIES: Normal range of motion, no pitting or edema. No clubbing or cyanosis. NEUROLOGICAL: Cranial nerves II through XII grossly intact. Normal speech, normal gait. 5/5 strength, normal movement in all extremities, normal sensation , normal reflexes PSYCH: Normal mood, normal affect. SKIN: Warm, dry, normal turgor, no visible rashes or lesions. Source: Patient Exam Limitations: No limitations - Personal History Current Tetanus Diphtheria and Acellular Pertussis (TDAP): Yes Tetanus Vaccine Date: less than 5 years - Medical/Surgical History Hx Asthma: No Hx Chronic Respiratory Disease: No Hx Diabetes: No Hx Cardiac Disease: No Hx Renal Disease: No Hx Cirrhosis: No Hx Alcoholism: No Hx HIV/AIDS: No Hx Splenectomy or Spleen Trauma: No Other PMH: multiple myloma, PE (1994 and 1996), gallbladder out feb 2014, rotator cuff surgery. FACTOR FIVE LEIDEN, stem cell transplant, port placement 02/25, DVT 2015 - Family History Significant Family History: No pertinent family hx - Social History Smoking Status: Never smoked Alcohol Use: Sober Drug Use: None Constitutional: Initial Vital Signs Temperature (C) 39.5 C H 11/18/17 20:40 Heart Rate 109 H 11/18/17 20:40 Respiratory Rate 20 11/18/17 20:40 Blood Pressure 114/70 11/18/17 20:40 O2 Sat (%) 96 11/18/17 20:40 O2 Delivery Mode Room Air Allergies/Adverse Reactions: peanut Allergy (Verified 11/19/17 10:40) Home Medications: Medication Instructions Recorded Acyclovir [Zovirax 400 mg (*)] 800 mg PO BID 02/18/17 Cholecalciferol Vit D3 [Vitamin D3 1,000 units PO DAILY 02/18/17 (*)] Carvedilol [Coreg (*)] 3.125 mg PO BIDMEAL 11/19/17 Gabapentin [Neurontin 300 MG (*)] 300 mg PO BID 11/19/17 Granisetron HCl 1 mg PO DAILY 11/19/17 Lisinopril [Zestril 2.5 mg (*)] 2.5 mg PO DAILY@1200 11/19/17 Omeprazole 20 mg PO DAILY18 11/19/17 Potassium Cl [Klor-Con] 10 meq PO DAILY 11/19/17 Sulfamethox/Tmp 800/160 mg 1 tab PO MWF 11/19/17 [Bactrim DS] Vitamin B Complex [Vitamin B 1 each PO DAILY@12 11/19/17 Complex (OTC)] Warfarin Sodium [Coumadin 3MG (*)] 6 mg PO DAILY16 11/19/17 Medical Decision Making - Diagnostics EKG Interpretation: An EKG obtained and was read and documented in trace view. Please see trace view for full reading and report. Sinus rhythm, no acute ischemic changes Imaging: Discussed imaging studies w/ rn call center Radiologist ED Course/Re-evaluation: 10:30 p.m. I talked to Dr. Sellers. We suspect viral bronchitis. We will send off a respiratory test and admit. Will hold on antibiotics at this point. Differential Diagnosis: Partial list of the Differential diagnosis considered include but were not limited to; bronchitis, urinary tract infection and although unlikely based on the history and physical exam, I also considered sepsis, meningitis, pneumonia, neutropenia. - Data Points Laboratory Results: Laboratory Results 11/19/17 04:37 11/19/17 04:37 Microbiology Results: MICROBIOLOGY 11/18/17 22:25 Urine,Catheterized Urine Culture - Preliminary Escherichia Coli Gram Neg Samson Nonlactose Ferm. 11/18/17 21:50 Blood Blood Culture - Preliminary Streptococcus Salivarius Group Streptococcus Mitis/Oralis 11/18/17 21:50 Blood Blood Panel (PCR) - Final Streptococcus 11/18/17 21:35 Blood Blood Culture - Preliminary Medications Given: Acetaminophen (Tylenol) 650 mg PO Q4HRS PRN PRN Reason: Pain, Mild/Fever, Can Take PO Stop: 05/17/18 22:28 Last Admin: 11/20/17 17:02 Dose: 650 mg Acyclovir (Acyclovir) 800 mg PO BID [facility] Stop: 12/19/17 11:44 Last Admin: 11/20/17 08:38 Dose: 800 mg Carvedilol (Coreg) 3.125 mg PO BIDMEAL [facility] Stop: 05/18/18 17:59 Last Admin: 11/20/17 08:38 Dose: 3.125 mg Enoxaparin Sodium (Lovenox) 50 mg SC BID [facility] Stop: 05/18/18 11:14 Last Admin: 11/20/17 08:38 Dose: 50 mg Gabapentin (Neurontin) 300 mg PO BID PRN PRN Reason: Pain Stop: 05/18/18 08:59 Last Admin: 11/19/17 00:10 Dose: 300 mg Gabapentin (Neurontin) 300 mg PO BID [facility] Stop: 05/18/18 11:44 Last Admin: 11/20/17 08:38 Dose: 300 mg Ceftriaxone Sodium 2 gm/ (Sodium Chloride) 50 mls @ 100 mls/hr IV DAILY [facility] PRN Reason: Protocol Stop: 12/20/17 11:59 Last Admin: 11/20/17 13:01 Dose: 50 mls Lisinopril (Zestril) 2.5 mg PO DAILY@1200 [facility] Stop: 05/18/18 11:59 Last Admin: 11/20/17 11:35 Dose: Not Given Pantoprazole Sodium (Protonix) 40 mg PO DAILY18 [facility] Stop: 05/18/18 17:59 Last Admin: 11/19/17 17:50 Dose: 40 mg Vitamin B Complex (Vitamin B Complex) 1 ea PO DAILY@12 [facility] Stop: 05/18/18 11:59 Last Admin: 11/20/17 11:35 Dose: 1 ea Warfarin Sodium (Message-Coumadin Daily Order) 1 ea MISC DAILY@1500 [facility] Stop: 05/19/18 14:59 Last Admin: 11/20/17 13:53 Dose: 1 ea Discontinued Medications Sodium Chloride (Ns) 1,400 mls @ 2,800 mls/hr 30 ml/kg infuse over 30 min ( 1400 ml) IV EDNOW ONE PRN Reason: Protocol Stop: 11/18/17 21:55 Last Admin: 11/18/17 21:49 Dose: 1,400 mls Cefazolin Sodium/Dextrose (Ancef 2 Gm) 100 mls @ 200 mls/hr IV Q8H CHATO PRN Reason: Protocol Stop: 12/19/17 12:14 Last Admin: 11/20/17 11:44 Dose: 100 mls Sodium Chloride (Ns) 1,000 mls @ 3,000 mls/hr IV ONCE ONE Stop: 11/19/17 20:04 Last Admin: 11/19/17 21:04 Dose: 1,000 mls Sodium Chloride (Ns) 500 mls @ 0 mls/hr IV ONCE ONE PRN Reason: Wide Open Stop: 11/20/17 01:23 Last Admin: 11/20/17 01:38 Dose: 500 mls Warfarin Sodium (Coumadin) 9 mg PO ONCE@1600 ONE Stop: 11/20/17 16:01 Last Admin: 11/20/17 17:01 Dose: 9 mg Departure - Departure Disposition: [facility] Acute Clinical Impression: Bronchitis Multiple myeloma Qualifiers: Multiple myeloma remission status: not in remission Qualified Code(s): C90.00 - Multiple myeloma not having achieved remission Fever Qualifiers: Fever type: unspecified Qualified Code(s): R50.9 - Fever, unspecified Condition: Fair
[2017-11-18 21:50] LABS: PLATELET COUNT 134 10^3/uL (150-400)
[2017-11-18 22:00] LABS: INR 1.26 (0.83-1.16)
--- NOTE | 2017-11-18 22:08 | CPEKG ---
Test Reason : OPEN Blood Pressure : / mmHG Vent. Rate : 097 BPM Atrial Rate : 097 BPM P-R Int : 126 ms QRS Dur : 067 ms QT Int : 358 ms P-R-T Axes : 032 055 057 degrees QTc Int : 455 ms Sinus rhythm Low voltage, precordial leads Confirmed by Ramon Henley ([id number]) on 11/18/2017 10:07:53 PM Referred By: Confirmed By:Ramon Henley
[2017-11-18] MEDS ORDERED: ONDANSETRON 4 MG/2 ML VIAL IVP PRN (22:29)
[2017-11-18] MEDS ORDERED: ONDANSETRON DISINTEGRATING 4 MG TAB PO PRN (22:29)
--- NOTE | 2017-11-18 23:05 | PDGENHP ---
History and Physical - Chief Complaint Fever - History of Present Illness 71 yo F w/ hx of MM s/p BMT, FVL on warfarin presents with fever. Patient first felt febrile yesterday. Over the last 2 days she has had a Tmax of 104. She has also experienced body aches. She denies other infectious symptoms including sore throat, cough, SOB, abdominal pain, diarrhea, and dysuria. She is no longer on steroids or immunosuppressive medications. In the ED her work-up has been unremarkable aside from a fever. She is not neutropenic. She is being admitted for observation. Case discussed with ED physician Dr. Henley; records reviewed in EMR. History Information - Allergies/Home Medication List Allergies/Adverse Reactions: No Known Allergies Allergy (Unverified 11/18/17 20:39) Home Medications: Acyclovir [Zovirax 400 mg (*)] 400 mg PO BID 02/18/17 [Last Taken 06/21/17] Cholecalciferol Vit D3 [Vitamin D3 (*)] 1,000 units PO DAILY 02/18/17 [Last Taken 06/20/17] Dexamethasone [Decadron 4 MG (*)] 28 mg PO MO 02/18/17 [Last Taken 06/11/17] Cyanocobalamin [Vitamin B12 (*)] 1,000 mcg PO DAILY 06/21/17 [Last Taken ] I have personally reviewed and updated: family history, medical history - Past Medical History pulmonary embolism Additional medical history: Multiple myeloma. Factor V Leiden heterozygote. PE in 1994 and 1996. Chronic anticoagulation. Thrombocytopenia requiring repeat transfusions - Surgical History Reports: cholecystectomy Additional surgical history: rotator cuff surgery, hand surgery, stem cell transplant, right thumb, right knee, power port placement to left - Family History Additional family history: Mom with h/o blood clots. 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 . Cor status-full Review of Systems Review of Systems: ROS: 10pt was reviewed & negative except for what was stated in HPI & below Physical Exam Physical Exam: Temp Pulse Resp BP Pulse Ox 39.3 C H 94 20 116/74 96 11/18/17 21:56 11/18/17 22:11 11/18/17 22:11 11/18/17 22:11 11/18/17 22:11 Constitutional: no apparent distress, not in pain Eyes: PERRL, EOMI Ears, Nose, Mouth, Throat: moist mucous membranes, no oral mucosal ulcers Cardiovascular: regular rate and rhythym, no murmur, rub, or gallop Respiratory: no respiratory distress, clear to auscultation Gastrointestinal: normoactive bowel sounds, soft, non-tender abdomen Skin: warm, other ([place] chest, no signs of infection) Musculoskeletal: full muscle strength, no muscle tenderness Neurologic: AAOx3, CN II-XII Intact Psychiatric: interacting appropriately, not anxious Lab Data & Imaging Review 11/18/17 21:35 11/18/17 21:35 WBC 9.96 10^3/uL (3.80-9.50) H 11/18/17 21:35 RBC 3.13 10^6/uL (4.18-5.33) L 11/18/17 21:35 Hgb 10.6 g/dL (12.6-16.3) L 11/18/17 21:35 Hct 29.6 % (38.0-47.0) L 11/18/17 21:35 MCV 94.6 fL (81.5-99.8) 11/18/17 21:35 MCH 33.9 pg (27.9-34.1) 11/18/17 21:35 MCHC 35.8 g/dL (32.4-36.7) 11/18/17 21:35 RDW 13.4 % (11.5-15.2) 11/18/17 21:35 Plt Count 134 10^3/uL (150-400) L 11/18/17 21:35 MPV 9.8 fL (8.7-11.7) 11/18/17 21:35 Neut % (Auto) 63.5 % (39.3-74.2) 11/18/17 21:35 Lymph % (Auto) 25.7 % (15.0-45.0) 11/18/17 21:35 Addison % (Auto) 10.2 % (4.5-13.0) 11/18/17 21:35 Eos % (Auto) 0.1 % (0.6-7.6) L 09/09/18 21:35 Baso % (Auto) 0.2 % (0.3-1.7) L 11/18/17 21:35 Nucleat RBC Rel Count 0.0 % (0.0-0.2) 11/18/17 21:35 Absolute Neuts (auto) 6.32 10^3/uL (1.70-6.50) 11/18/17 21:35 Absolute Lymphs (auto) 2.56 10^3/uL (1.00-3.00) 11/18/17 21:35 Absolute Monos (auto) 1.02 10^3/uL (0.30-0.80) H 11/18/17 21:35 Absolute Eos (auto) 0.01 10^3/uL (0.03-0.40) L 11/18/17 21:35 Absolute Basos (auto) 0.02 10^3/uL (0.02-0.10) 11/18/17 21:35 Absolute Nucleated RBC 0.00 10^3/uL (0-0.01) 11/18/17 21:35 Immature Gran % 0.3 % (0.0-1.1) 11/18/17 21:35 Immature Gran # 0.03 10^3/uL (0.00-0.10) 11/18/17 21:35 PT 16.0 SEC (12.0-15.0) H 11/18/17 21:35 INR 1.26 (0.83-1.16) H 11/18/17 21:35 APTT 37.5 SEC (23.0-38.0) 11/18/17 21:35 VBG Lactic Acid 0.8 mmol/L (0.7-2.1) 11/18/17 21:35 Sodium 131 mEq/L (135-145) L 11/18/17 21:35 Potassium 4.5 mEq/L (3.3-5.0) 11/18/17 21:35 Chloride 101 mEq/L (97-110) 11/18/17 21:35 Carbon Dioxide 20 mEq/l (22-31) L 11/18/17 21:35 Anion Gap 10 mEq/L (8-16) 11/18/17 21:35 BUN 25 mg/dL (7-23) H 11/18/17 21:35 Creatinine 1.0 mg/dL (0.6-1.0) 11/18/17 21:35 Estimated GFR 55 11/18/17 21:35 Glucose 112 mg/dL (70-100) H 11/18/17 21:35 Calcium 9.1 mg/dL (8.5-10.4) 11/18/17 21:35 Total Bilirubin 0.7 mg/dL (0.1-1.4) 11/18/17 21:35 Conjugated Bilirubin 0.2 mg/dL (0.0-0.5) 11/18/17 21:35 Unconjugated Bilirubin 0.5 mg/dL (0.0-1.1) 11/18/17 21:35 AST 22 IU/L (14-46) 11/18/17 21:35 ALT 35 IU/L (9-52) 11/18/17 21:35 Alkaline Phosphatase 54 IU/L (38-126) 11/18/17 21:35 Total Protein 6.3 g/dL (6.3-8.2) 11/18/17 21:35 Albumin 3.8 g/dL (3.5-5.0) 11/18/17 21:35 Urine Color YELLOW 11/18/17 22:25 Urine Appearance HAZY 11/18/17 22:25 Urine pH 5.0 (5.0-7.5) 11/18/17 22:25 Ur Specific Speculator 1.016 (1.002-1.030) 11/18/17 22:25 Urine Protein NEGATIVE (NEGATIVE) 11/18/17 22:25 Urine Ketones NEGATIVE (NEGATIVE) 11/18/17 22:25 Urine Blood NEGATIVE (NEGATIVE) 11/18/17 22:25 Urine Nitrate NEGATIVE (NEGATIVE) 11/18/17 22:25 Urine Bilirubin NEGATIVE (NEGATIVE) 11/18/17 22:25 Urine Urobilinogen NEGATIVE EU (0.2-1.0) 11/18/17 22:25 Ur Leukocyte Esterase NEGATIVE (NEGATIVE) 11/18/17 22:25 Urine RBC 1-3 /hpf (0-3) 11/18/17 22:25 Urine WBC 3-5 /hpf (0-3) H 11/18/17 22:25 Ur Epithelial Cells TRACE /lpf (NONE-1+) 09/09/18 22:25 Urine Mucus TRACE /lpf (NONE-1+) 11/18/17 22:25 Urine Glucose NEGATIVE (NEGATIVE) 11/18/17 22:25 Imaging Review: Imaging Impressions Chest X-Ray 11/18/17 21:26 Impression: 1. Mild bronchitis. No pneumonia. 2. Old mild T10 compression fracture. No new compression fracture or lytic lesion. Assessment & Plan Assessment: 71 yo F w/ hx of MM s/p BMT and FVL on warfarin presents with fever. Plan: 1. Fever - Tmax of 39.5 while here; the remainder of her work-up is reassuring thus far. CXR (personally interpreted) does show mild bronchitis but she denies respiratory symptoms. UA non-infectious appearing. She denies all other localizing symptoms of infection as well. - Admit for observation - Respiratory PCR, procalcitonin ordered - Blood and urine cultures pending - Will observe off of antibiotics for now 2. Hx of MM - s/p BMT in July of 2017; patient and report that a recent bone marrow biopsy revealed no evidence of disease. She is no longer on immunosuppressive medication. - Continue acyclovir 3. Hx FVL - With numerous clotting events, most recently earlier this year. - Continue warfarin - Monitor daily INR Diet - Regular Code - Full Ppx - warfarin Dispo - Admit under observation status
[2017-11-18] MEDS ORDERED: GABAPENTIN 300 MG CAP PO PRN (23:44)
[2017-11-18] MEDS: ACETAMINOPHEN 325 MG TAB PO PRN (23:50)
[2017-11-19] MEDS: ACETAMINOPHEN 325 MG TAB PO PRN ×4 (04:47→23:30)
[2017-11-19 04:49] LABS: PLATELET COUNT 108 10^3/uL (150-400)
[2017-11-19 05:05] LABS: INR 1.21 (0.83-1.16); PROTIME(PATIENT) 15.5 SEC (12.0-15.0)
[2017-11-19] MEDS: ENOXAPARIN 60 MG/0.6 ML SYR SC SCH (11:22)
--- NOTE | 2017-11-19 12:27 | HOSPPROG ---
Hospitalist Progress Note Assessment/Plan: 71 yo F w/ hx of MM s/p BMT and FVL on warfarin presents with fever found to have Strep Bacteremia . Plan: 1. Streptococcus Bacteremia - Tmax of 39.5 since admission, remains febrile this AM - Blood cultures grew Streptococcus this morning, sensitivities pending - Source likely port at this time, although it does not appear superficially infected upon exam, CXR does show mild bronchitis, no PNA. UA non-infectious appearing. - Consulted ID this morning, discussed with Dr. Plummer, who recommended starting Ancef, will f/u their recs - Will likely have to consult surgery for port removal - Repeat blood cultures tomorrow to evaluate for clearance of bacteremia 2. Hx of MM - s/p BMT in July of 2017; patient and report that a recent bone marrow biopsy revealed no evidence of disease. She is no longer on immunosuppressive medication. - Continue acyclovir 3. Hx FVL - With numerous clotting events, most recently earlier this year. - INR subtherapeutic today, will bridge with Lovenox BID until INR 2-3 - Will continue warfarin with pharmacy to dose (will require higher dosing as patient as been chronically subtherapeutic upon chart review) - Monitor daily INR Diet - Regular Code - Full Ppx - warfarin Dispo - Pending clinical course Subjective: Patient reports fevers overnight Objective: Vital Signs Temp Pulse Resp BP Pulse Ox 38.0 C 81 18 105/67 98 11/19/17 09:00 11/19/17 09:00 11/19/17 09:00 11/19/17 09:00 11/19/17 09:00 Laboratory Results 11/19/17 04:37 11/19/17 04:37 11/18/17 11/19/17 11/20/17 05:59 05:59 05:59 Intake Total 1600 Output Total 400 Balance 1200 PT 15.5 SEC (12.0-15.0) H 11/19/17 04:37 INR 1.21 (0.83-1.16) H 11/19/17 04:37 - Physical Exam Constitutional: no apparent distress Eyes: PERRL Ears, Nose, Mouth, Throat: moist mucous membranes Cardiovascular: regular rate and rhythym Respiratory: no respiratory distress, clear to auscultation Gastrointestinal: normoactive bowel sounds, soft, non-tender abdomen Genitourinary: no bladder fullness Skin: warm, No no fluctuance, No no induration, No erythema Musculoskeletal: no muscle tenderness Neurologic: AAOx3 Psychiatric: interacting appropriately Lymph, Heme, Immunologic: No ecchymoses, No petechiae ICD10 Worksheet Patient Problems: Problems Problem Status Onset Bronchitis Acute Fever Acute Multiple myeloma Acute Chest pain Acute Pulmonary embolism Acute Thrombocytopenia Acute
[2017-11-19] MEDS: VITAMIN B COMPLEX 1 EA CAP/TAB PO SCH (12:30)
[2017-11-19] MEDS: ACYCLOVIR 400 MG TAB PO SCH ×2 (12:31→19:41)
[2017-11-19] MEDS: ceFAZolin 2 GM/DEXTROSE 100 ML IV SCH ×2 (12:31→19:41)
[2017-11-19] MEDS: LISINOPRIL 2.5 MG TAB PO SCH (12:56)
[2017-11-19] MEDS: GABAPENTIN 300 MG CAP PO SCH ×2 (13:05→19:41)
--- NOTE | 2017-11-19 14:29 | ASMTCMCOM ---
CM Note CM Note Notes: Patient reviewed in am rounds. Admitted with fever 6 months s/p stem cells transplant. Undergoing diagnostics to determine source of positive blood cultures. Lives independently with her . Needs to be determined at this time. ID consult. CM to follow for needs. Plan: TBD Date Signed: 11/19/2017 02:28 PM Electronically Signed By:Nori Rehman RN
--- NOTE | 2017-11-19 15:26 | SOAPPROG ---
SOAP Progress Note Assessment/Plan: Assessment: Pt is a 71yo F known to me from port placement in February. Was notified of admission for fevers, has strep bacteremia. - She is doing well, the skin overlying the port looks good and I dont appreciate any fluctuance - unclear what the source is but clearly not going to get better with abx alone , agree with removal - Patient got therapeutic lovenox this am but platelet levels are good and INR 1.2. Will plan to hold lovenox tonight along with coumadin dose. OK to restart tomorrow - Will plan for bedside removal and packing at bedside. RBA discussed. Plan: 11/19/17 15:22 11/19/17 15:24 Subjective: No complaints Objective: Vital Signs Temp Pulse Resp BP Pulse Ox 39.4 C H 94 18 127/76 H 99 11/19/17 12:00 11/19/17 12:00 11/19/17 09:00 11/19/17 12:00 11/19/17 12:00 Laboratory Results 11/19/17 04:37 11/19/17 04:37 11/18/17 11/19/17 11/20/17 05:59 05:59 05:59 Intake Total 1600 Output Total 400 Balance 1200 PT 15.5 SEC (12.0-15.0) H 11/19/17 04:37 INR 1.21 (0.83-1.16) H 11/19/17 04:37 ICD10 Worksheet Patient Problems: Problems Problem Status Onset Bronchitis Acute Fever Acute Multiple myeloma Acute Chest pain Acute Pulmonary embolism Acute Thrombocytopenia Acute
--- NOTE | 2017-11-19 15:49 | GOP ---
DATE OF OPERATION: 11/19/2017 SURGEON: Gelnn Bennett MD ANESTHESIA: 1% local. PREOPERATIVE DIAGNOSIS: Strep bacteremia. POSTOPERATIVE DIAGNOSIS: Strep bacteremia. PROCEDURE PERFORMED: Port removal. FINDINGS: Successful removal, minimal blood loss, area packed. SPECIMENS: Port. ESTIMATED BLOOD LOSS: 2 cc. DESCRIPTION OF PROCEDURE: The patient was greeted in her hospital bed. After discussing the risks, benefits, and alternatives, consent was signed. After performing a [employer] time-ou t, the patient's left chest was prepped and draped in the typical sterile fashion. I commenced the procedure by anesthetizing the area using 1% lidocaine buffered with bicarbonate. Af ter a field block had been obtained, I used a 15 blade scalpel and successfully opened her previous i ncision. I carried this down to the subcutaneous tissue. I then successfully skeletonized the port from the overlying cavity. Once successfully skeletonized, it was removed with gentle pressure. Hem ostasis was achieved in the cavity via holding pressure with a Ray-Donavan. Once I was happy with hemost asis, the area was successfully packed with 1 inch iodoform and covered with Allevyn. The patient to lerated the procedure well with no complications. DRAINS: None. /[id number]/MODL
--- NOTE | 2017-11-19 17:25 | GCON ---
INPATIENT INFECTIOUS DISEASE CONSULTATION. REFERRING PHYSICIAN: Reynold Green DO REASON FOR REFERRAL: Streptococcal bacteremia and fever. HISTORY OF PRESENT ILLNESS: Patient is a 71-year-old female who was admitted to [facility] on 11/18/2017 through the emergency room secondary to complaints of fever. Blood cultures taken from the emergency room are growing streptococci by BCID PCR. The patient has a history of multiple myeloma and a port implant last year secondary to need for frequent platelet transplants. In the in tervening time period, the patient has had a bone marrow transplant. This has alleviated her need fo r transfusions. The patient has been febrile for a total of 2 days with a T-max of a 104. She has a lso complained of myalgias. The patient does not take any steroids or immunosuppressive medications and her blood counts are nominal. The patient denies any discharge or tenderness or swelling around the port site in her left chest. PAST MEDICAL HISTORY: 1. Multiple myeloma. 2. Factor V Leiden. 3. History of pulmonary embolus. 4. History of multiple transfusions secondary to thrombocytopenia. PAST SURGICAL HISTORY: 1. Status post cholecystectomy. 2. Status post rotator cuff surgery. 3. Status post hand surgery. 4. Status post stem cell transplant. 5. Status post right knee surgery. 6. Status post right thumb surgery. 7. Status post port placement, left chest. ANTIBIOTICS: Cefazolin. ALLERGIES: The patient is allergic to peanuts. SOCIAL HISTORY: The patient denies any tobacco, alcohol, or drug use. 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 FAMILY HISTORY: Positive for blood clots. REVIEW OF SYSTEMS: Other than that detailed above in the history of present illness, a comprehensive 10-system review is negative. PHYSICAL EXAMINATION: VITAL SIGNS: Temperature maximum is 39.5, temperature current is 39.4, heart rate is 94, respiratory rate is 18, blood pressure is 127/76. GENERAL: The patient is a well-formed , well-nourished older female in no acute distress. She is moderately toxic in appearance. She is a lert and oriented x3. She has a pleasant demeanor. HEENT: Normocephalic for age. Atraumatic. No scleral icterus. No oral lesion or drainage from the nares. EYES: Lids and conjunctivae are within normal limits. Pupils are equal and round bilaterally. NECK: Supple. No meningismus. LUNGS: Cl ear to auscultation bilaterally with good effort. HEART: Tachycardic, but regular. No murmur, rub, or gallop noted. No significant peripheral edema. SKIN: Warm and dry to the touch. No rash or le falguni noted. Notably around her left chest port, there is no fluctuance. Mild amount of redness in h er upper chest. MUSCULOSKELETAL: No muscle belly tenderness is noted. No joint line effusion or ar thritis is seen. NEURO: Cranial nerves 2 through 12 seem to be intact. Peripheral sensation seems intact in extremities. LABORATORY DATA: The patient has a CBC dated 11/19/2017, shows white blood cell count of 7.8, hemogl obin of 9.9, hematocrit of 27.9, platelet count of 108. Differential is within normal limits. Serum chemistries on 11/19/2017 show sodium 134, potassium 4.3, chloride 108, bicarb 21, BUN of 22, and cr eatinine 0.9. Urinalysis on 11/18/2017 is within normal limits. MICROBIOLOGIC DATA: Patient has blood cultures dated 11/18/2017. Port site culture positive for gra m-positive cocci in chains. PCR ID shows streptococcal species. ASSESSMENT: Streptococcal infection from the port site draw. Peripheral draw not growing anything y et, but pending. The patient unlikely to need port access going forward given her resolution of tierney sfusion dependency with her bone marrow transplant. At this point will ask General Surgery to remove the port site. We will continue coverage with cefazolin. We will await identification through cult ure to corroborate the PCR results. Will also obtain a 2D echocardiogram to insure there is no valvu lar vegetations that contribute to source for this bacteremia. PLAN: 1. 2D echocardiogram. 2. Continue cefazolin. 3. Follow temperature curve and clinical course. 4. Port removal. /[id number]/MODL
[2017-11-19] MEDS: CARVEDILOL 3.125 MG TAB PO SCH (17:50)
[2017-11-19] MEDS: PANTOPRAZOLE SODIUM 40 MG TAB PO SCH (17:50)
--- NOTE | 2017-11-19 18:14 | PDMN ---
Medical Necessity Medical necessity: Change to IP, as of 11/19/17, per & MCG MG-SIC (Systemic or Infectious Condition); los >2 mn for ongoing management of streptococcal bacteremia w/fever likely r/t port; requiring further monitoring, Surgery consult for port removal, ID consult & IV abx; hx multiple myeloma, factor V leiden, PE, thrombocytopenia
[2017-11-19] MEDS ORDERED: NS 1,000 ML IV ONE (19:45)
[2017-11-20] MEDS ORDERED: NS 500 ML IV ONE (01:22)
[2017-11-20] MEDS: ceFAZolin 2 GM/DEXTROSE 100 ML IV SCH ×2 (04:05→11:44)
[2017-11-20 06:43] LABS: PLATELET COUNT 107 10^3/uL (150-400)
[2017-11-20 06:50] LABS: INR 1.13 (0.83-1.16); PROTIME(PATIENT) 14.7 SEC (12.0-15.0)
[2017-11-20] MEDS: CARVEDILOL 3.125 MG TAB PO SCH ×2 (08:38→18:04)
[2017-11-20] MEDS: ENOXAPARIN 60 MG/0.6 ML SYR SC SCH ×2 (08:38→20:56)
[2017-11-20] MEDS: GABAPENTIN 300 MG CAP PO SCH ×2 (08:38→20:55)
[2017-11-20] MEDS: ACYCLOVIR 400 MG TAB PO SCH ×2 (08:38→20:56)
[2017-11-20] MEDS: ACETAMINOPHEN 325 MG TAB PO PRN ×2 (08:51→17:02)
--- NOTE | 2017-11-20 09:54 | ECHO ---
[email or web address] [address] [address] Main: [phone] Fax: Transthoracic Echocardiogram Name: VENITA SURESH MR#: [id number] Study Date: 11/19/2017 Study Time: 04:06 PM Date of : 1945 Age: 71 year(s) Height: 157.5 cm (62 in.) Weight: 47.63 kg (105 lb.) BSA: 1.45 m2 Gender: Female Examination: Echo Indication: strep bacteremia, look for valve vegetation Image Quality: Adequate Contrast: Requested by: Miguelangel Plummer BP: 123 mmHg/70 mmHg Heart Rate: Rhythm: Indication: strep bacteremia, look for valve vegetation Procedure Staff Corner Trimmer Operator: Marina Bates [facility] Reading Physician: Jackson Solis MD Requesting Provider: Conclusions: Normal size left ventricle. Normal global systolic LV function. The ejection fraction is visually estimated to be 55 %. No regional wall motion abnormality. Mild mitral valve regurgitation is present. Mild tricuspid regurgitation is present. The pulmonary artery pressure is normal. There are no significant valvular abnormalities. Consider KULWANT for further assessment possible SBE if clinically indicated. Measurements: Chambers Valvular Assessment AV/MV Valvular Assessment TV/PV Normal Normal Normal Name Value Range Name Value Range Name Value Range Ao Cassy (2D): 2.6 cm (1.4 cm-2.6 AV Vmax: 1.43 m/s (1 m/s-1.7 TR Vmax: 2.62 mm/s ( - ) cm) m/s) TR PGmax: 27 mmHg ( - ) IVSd (2D): 1.0 cm (0.6 cm-1.1 AV maxP mmHg ( - ) syst. PAP: 32 mmHg ( - ) cm) AV meanP mmHg ( - ) PV Vmax: 0.91 m/s (0.6 m/s-0.9 LVDd (2D): 4.0 cm (3.9 cm-5.3 JUAN (VTI): 1.5 cm ( - ) m/s) cm) MV E Vmax: 0.57 m/s ( - ) PV PGmax: 3 mmHg ( - ) LVDs (2D): 2.9 cm (2.1 cm-4 MV A Vmax: 0.78 m/s ( - ) cm) MV E/A: 0.73 ( - ) LVPWd (2D): 1.1 cm ( - ) MV PHT: 0.089 s ( - ) LVOTd 1.7 cm 1.7 cm mm MVA (PHT): 2.5 s ( - ) LVEF (BP): 51 % (>=55 %) Visual EF: 55 % RVDd(2D): 3.0 cm (1.9 cm-3.8 cmmm) Continued Measurements: Patient: VENITA SURESH Study Date: 11/19/2017 Page 1 of 2 04:06 PM Chambers Valvular Assessment AV/MV Valvular Assessment TV/PV Name Value Name Value Name Value LADs: 2.9 cm MV DecTime: 289 m/s CVP (est.): 5 mmHg LADs Lon.9 cm MV E' Septal: 0.07 m/s LA Area: 10.7 cm2 MV E/E' Septal: 8.30 LA Volume: 29 ml MV E/E' Lateral: 11.70 LA Volume Index: 20.0 ml/m2 RA Area: 12.3 cm2 Additional Vessels Name Value Ao Ascendin.0 cm Findings: Left Ventricle: Normal size left ventricle. No LV hypertrophy. Normal global systolic LV function. The ejection fraction is visually estimated to be 55 %. No regional wall motion abnormality. Unable to assess diastolic dysfunction. Right Ventricle: Normal size right ventricle. Normal RV function. Left Atrium: The left atrium is normal in size. Right Atrium: The right atrium is normal in size. Mitral Valve: The mitral valve is normal in appearance and function. Mild mitral valve regurgitation is present. No mitral stenosis is present. Aortic Valve: The aortic valve is tri-leaflet. There is no significant aortic valve regurgitation. No aortic valve stenosis is present. Tricuspid Valve: The tricuspid valve is normal in appearance and function. Mild tricuspid regurgitation is present. The pulmonary artery pressure is normal. Right ventricular systolic pressure measures 32mmHg. Pulmonic Valve: The pulmonic valve is normal in appearance and function. There is no pulmonic regurgitation seen. Aorta: The aorta is normal. Normal size aortic root measuring 2.6 cm. Normal size ascending aorta measuring 3.0 cm. Pericardium: No pericardial effusion. No pleural effusion. Exam Comments: No evidence of endocarditis. (No Signature Object) Patient: VENITA SURESH Study Date: 11/19/2017 Page 2 of 2 04:06 PM [id number]
--- NOTE | 2017-11-20 10:42 | HOSPPROG ---
Hospitalist Progress Note Assessment/Plan: 71 yo F w/ hx of MM s/p BMT and FVL on warfarin presents with fever found to have Strep Bacteremia . Plan: 1. Streptococcus Bacteremia - Tmax of 39.5 since admission, remains febrile this AM - Blood cultures growing Streptococcus, sensitivities pending - Source likely port, surgery consulted yesterday who removed port on 11/19 - Consulted ID, who recommended starting Ancef, repeat blood cultures - Urine culture growing Gram - rods, likely colonization given lack of UTI symptoms - Given continued fevers, will discuss with ID this AM if any change in abx is indicated 2. Hx of MM - s/p BMT in July of 2017; patient and report that a recent bone marrow biopsy revealed no evidence of disease. She is no longer on immunosuppressive medication. - Continue acyclovir 3. Hx FVL - With numerous clotting events, most recently earlier this year. - INR subtherapeutic, will bridge with Lovenox BID until INR 2-3 - Will continue warfarin with pharmacy to dose (will require higher dosing as patient as been chronically subtherapeutic upon chart review) - Monitor daily INR Diet - Regular Code - Full Ppx - warfarin Dispo - Pending clinical course Subjective: Patient reports some pain where port was removed yesterday Objective: Vital Signs Temp Pulse Resp BP Pulse Ox 39.1 C H 102 H 16 163/88 H 96 11/20/17 08:50 11/20/17 08:38 11/20/17 07:27 11/20/17 08:38 11/20/17 07:27 Laboratory Results 11/20/17 06:24 11/20/17 06:24 11/19/17 11/20/17 11/21/17 05:59 05:59 05:59 Intake Total 2550 Output Total 1800 500 Balance 750 -500 PT 14.7 SEC (12.0-15.0) 11/20/17 06:24 INR 1.13 (0.83-1.16) 11/20/17 06:24 - Physical Exam Constitutional: no apparent distress, chronically ill appearing Eyes: PERRL Ears, Nose, Mouth, Throat: moist mucous membranes Cardiovascular: regular rate and rhythym Respiratory: no respiratory distress Gastrointestinal: normoactive bowel sounds, soft, non-tender abdomen Genitourinary: no bladder fullness Skin: warm Musculoskeletal: no muscle tenderness Neurologic: AAOx3 Psychiatric: interacting appropriately ICD10 Worksheet Patient Problems: Problems Problem Status Onset Bronchitis Acute Fever Acute Multiple myeloma Acute Chest pain Acute Pulmonary embolism Acute Thrombocytopenia Acute
[2017-11-20] MEDS: VITAMIN B COMPLEX 1 EA CAP/TAB PO SCH (11:35)
[2017-11-20] MEDS: LISINOPRIL 2.5 MG TAB PO SCH (11:35)
--- NOTE | 2017-11-20 14:43 | PCMIDPN ---
Assessment/Plan: Assessment/Plan: * Streptococcal bacteremia: Blood culture showing probable growth of both Streptococcus mitis and salivarius. Growth only from culture obtained from port with peripheral blood culture remaining negative. Port removed yesterday. Persistent high-grade fever without other localizing signs or symptoms. Will change cefazolin to ceftriaxone based on isolation of oropharyngeal streptococci. Repeat blood cultures are pending to assess for clearance of bacteremia. Transthoracic echocardiogram without evidence of endocarditis. * Fever: Likely associated with streptococcal bacteremia. Patient is now approximately 3.5 months post autologous stem cell transplant on prophylactic acyclovir and Bactrim. Review of [facility] and [facility] does not show prior CMV antibiotic status results. Will send serum CMV PCR and serologies for cryptococcus, Coccidioides, and histoplasmosis. If persists despite treatment of streptococcal bacteremia, may require CT scan of chest, abdomen, and pelvis for further evaluation. 11/20/17 14:39 Subjective: Patient with ongoing fever with occasional chills. No other localizing complaints except for myalgia with fever. Port was removed yesterday p.m.. History reviewed noting that patient grew up in [place] and previously lived in [place]. Has been in [place] for 20 years. Pet dog at home. [facility] reviewed for history regarding autologous stem cell transplant which occurred in late July. Objective: Vital Signs Temp Pulse Resp BP Pulse Ox 37.4 C 89 20 112/65 98 11/20/17 13:54 11/20/17 13:54 11/20/17 13:54 11/20/17 13:54 11/20/17 13:54 Laboratory Results 11/20/17 06:24 11/20/17 06:24 11/19/17 11/20/17 11/21/17 05:59 05:59 05:59 Intake Total 2550 150 Output Total 1800 500 Balance 750 -350 Cefazolin # 2 Blood cultures 11/18/17 1/2 sets with alpha hemolytic streptococci not further identified by BCID; preliminarily culture showing growth of possible Streptococcus mitis and Streptococcus salivarius Respiratory pathogen panel by PCR negative Chest x-ray no infiltrate Transthoracic echocardiogram without overt evidence of endocarditis Tm 39.4 - Physical Exam General Appearance: alert, no apparent distress, non-toxic EENT: other (No mucositis), No scleral icterus, No thrush, No conjunctival petechiae Respiratory: lungs clear, other (Port site without surrounding soft tissue infection), No respiratory distress Cardiac/Chest: regular rate, rhythm, No systolic murmur Extremities: No inflammation Abdomen: non-tender, No distended Skin: No rash, No embolic lesions Neuro/Psych: No confused - Time Spent With Patient Time Spent with Patient: greater than 35 minutes Time Spent with Patient: Greater than 35 minutes spent on this patients care, greater than 50% of time spent counseling, educating, and coordinating care regarding the above mentioned plan. ICD10 Worksheet Patient Problems: Problems Problem Status Onset Bronchitis Acute Fever Acute Multiple myeloma Acute Chest pain Acute Pulmonary embolism Acute Thrombocytopenia Acute
--- NOTE | 2017-11-20 15:51 | SOAPPROG ---
SOAP Progress Note Assessment/Plan: Assessment: Pt is a 71yo F known to me from port placement in February. Was notified of admission for fevers, has strep bacteremia. - She is still having high fevers despite IV abx and port removal, ABX broadened today - port site looks good, the packing was saturated with blood which was expected but I see no surrounding erythema or purulence. The packing was changed and the Allevyn was changed as well. If not saturated, could likely keep on and not change until as it was somewhat painful today. Plan: 11/19/17 15:22 11/19/17 15:24 11/20/17 15:49 Subjective: having some pain at the removal site but otherwise ok Objective: Vital Signs Temp Pulse Resp BP Pulse Ox 38.8 C H 98 22 H 122/68 H 96 11/20/17 15:07 11/20/17 15:07 11/20/17 15:07 11/20/17 15:07 11/20/17 15:07 Laboratory Results 11/20/17 06:24 11/20/17 06:24 11/19/17 11/20/17 11/21/17 05:59 05:59 05:59 Intake Total 2550 150 Output Total 1800 500 Balance 750 -350 PT 14.7 SEC (12.0-15.0) 11/20/17 06:24 INR 1.13 (0.83-1.16) 11/20/17 06:24 ICD10 Worksheet Patient Problems: Problems Problem Status Onset Bronchitis Acute Fever Acute Multiple myeloma Acute Chest pain Acute Pulmonary embolism Acute Thrombocytopenia Acute
[2017-11-20] MEDS ORDERED: WARFARIN SODIUM 3 MG TAB PO ONE (16:00)
[2017-11-20] MEDS: PANTOPRAZOLE SODIUM 40 MG TAB PO SCH (18:05)
[2017-11-21] MEDS: ACETAMINOPHEN 325 MG TAB PO PRN ×3 (00:32→16:07)
[2017-11-21 04:28] LABS: INR 1.16 (0.83-1.16)
[2017-11-21] MEDS: CARVEDILOL 3.125 MG TAB PO SCH ×2 (08:09→17:36)
[2017-11-21] MEDS: ACYCLOVIR 400 MG TAB PO SCH ×2 (08:10→20:03)
[2017-11-21] MEDS: SULFAMETHOX/TMP 800/160 MG 1 TAB PO SCH (08:10)
[2017-11-21] MEDS: ENOXAPARIN 60 MG/0.6 ML SYR SC SCH ×2 (08:10→20:04)
[2017-11-21] MEDS: GABAPENTIN 300 MG CAP PO SCH ×2 (08:10→20:03)
--- NOTE | 2017-11-21 11:48 | PCMIDPN ---
Assessment/Plan: Assessment/Plan: * Streptococcal bacteremia: Blood culture showing growth of both Streptococcus mitis and salivarius. Growth only from culture obtained from port which has been removed with peripheral blood culture remaining negative. Repeat blood cultures are no growth to date. Transthoracic echocardiogram without evidence of endocarditis. Continue ceftriaxone * Fever: Persistent high-grade fever and now also with onset of diarrhea since yesterday (9 episodes). Will proceed with GI pathogen panel by PCR given she is at risk for both C difficile and other enteric pathogens post bone marrow transplant. Serologic studies for CMV by PCR and for geographic mycoses are pending. Repeat blood cultures also pending. If GI pathogen panel is negative , will proceed with CT scan of chest, abdomen and pelvis for further evaluation. 11/21/17 11:45 Subjective: Patient complains of persistent fever and now with onset of diarrhea yesterday. Describes 6 episodes of watery diarrhea yesterday and 3 episodes today. No blood in stool. No abdominal pain. No other localizing symptoms other than mild pain at site of prior port. Objective: Vital Signs Temp Pulse Resp BP Pulse Ox 37 C 112 H 20 123/80 H 97 11/21/17 10:23 11/21/17 08:09 11/21/17 07:43 11/21/17 08:09 11/21/17 07:43 Laboratory Results 11/21/17 03:55 11/21/17 03:55 11/20/17 11/21/17 11/22/17 05:59 05:59 05:59 Intake Total 2550 1050 Output Total 1800 1500 Balance 750 -450 Ceftriaxone # 2 Blood cultures 11/18/2017 1/2 sets Streptococcus mitis/oralis and Streptococcus salivarius Blood cultures 11/20/2017 pending CMV PCR pending Cryptococcal antigen/Coccidioides antibody/Histoplasma antigen pending T-max 39.6 degrees - Physical Exam General Appearance: alert, no apparent distress, non-toxic EENT: No scleral icterus, No thrush, No conjunctival petechiae Respiratory: lungs clear, No respiratory distress Cardiac/Chest: tachycardia, other (Mild pain around port site without erythema) Extremities: No inflammation Abdomen: non-tender, No distended Skin: No embolic lesions ICD10 Worksheet Patient Problems: Problems Problem Status Onset Bronchitis Acute Fever Acute Multiple myeloma Acute Chest pain Acute Pulmonary embolism Acute Thrombocytopenia Acute
[2017-11-21] MEDS: VITAMIN B COMPLEX 1 EA CAP/TAB PO SCH (12:27)
[2017-11-21] MEDS: LISINOPRIL 2.5 MG TAB PO SCH (12:27)
--- NOTE | 2017-11-21 13:15 | HOSPPROG ---
Hospitalist Progress Note Assessment/Plan: 71 yo F w/ hx of MM s/p BMT and FVL on warfarin presents with fever found to have Strep Bacteremia . Streptococcus Bacteremia - fevers persist, Tmax 39.6. Cx from port growing strep mitis and strep salivarius, s/p PORT removal. - Ancef changed to Ceftriaxone per ID - New diarrhea today, send GI path panel. If neg, proceed with CT chest/abd/ pelvis given ongoing fevers. Discussed with Dr. Salas. Hx of MM - s/p BMT in July of 2017; patient and report that a recent bone marrow biopsy revealed no evidence of disease. She is no longer on immunosuppressive medication. - Continue acyclovir Hx FVL - With numerous clotting events, most recently earlier this year. INR remains sub-therapeutic - Cont Lovenox bridge until INR >1.8 - Continue warfarin, pharmacy to dose - Monitor daily INR Diet - Regular Code - Full Ppx - Lovenox Dispo - cont inpt Subjective: Pt feels a little better today, feels temperature / chills are better. No abdominal pain, but diarrhea started overnight. No CP or SOB. She is weak, poor oral intake. Objective: Vital Signs Temp Pulse Resp BP Pulse Ox 36.8 C 82 16 95/61 L 99 11/21/17 11:59 11/21/17 11:59 11/21/17 11:59 11/21/17 12:27 11/21/17 11:59 Laboratory Results 11/21/17 03:55 11/21/17 03:55 11/20/17 11/21/17 11/22/17 05:59 05:59 05:59 Intake Total 2550 1050 Output Total 1800 1500 900 Balance 750 -450 -900 PT 15.0 SEC (12.0-15.0) 11/21/17 03:55 INR 1.16 (0.83-1.16) 11/21/17 03:55 - Physical Exam Constitutional: no apparent distress Eyes: PERRL Ears, Nose, Mouth, Throat: moist mucous membranes Cardiovascular: regular rate and rhythym Respiratory: no respiratory distress, clear to auscultation Gastrointestinal: normoactive bowel sounds, soft, non-tender abdomen Skin: warm Musculoskeletal: full muscle strength Neurologic: AAOx3 Psychiatric: interacting appropriately ICD10 Worksheet Patient Problems: Problems Problem Status Onset Bronchitis Acute Fever Acute Multiple myeloma Acute Chest pain Acute Pulmonary embolism Acute Thrombocytopenia Acute
[2017-11-21] MEDS ORDERED: WARFARIN SODIUM 3 MG TAB PO ONE (16:00)
[2017-11-21] MEDS: PANTOPRAZOLE SODIUM 40 MG TAB PO SCH (17:36)
--- NOTE | 2017-11-21 18:47 | ASMTCMCOM ---
CM Note CM Note Notes: Patient case reviewed in interdisciplinary rounds. She is s/p stem cell transplant with fever. Port removed ID following. Developed diarrhea. Supportive . Needs TBD at this time. Plan: TBD Date Signed: 11/21/2017 02:51 PM Electronically Signed By:Nori Rehman RN
[2017-11-22] MEDS: ACETAMINOPHEN 325 MG TAB PO PRN ×3 (00:13→16:44)
[2017-11-22 05:39] LABS: INR 1.34 (0.83-1.16); PROTIME(PATIENT) 16.8 SEC (12.0-15.0)
[2017-11-22] MEDS ORDERED: IOPAMIDOL (ISOVUE-300) 100 ML BTL ONE (09:51)
[2017-11-22] MEDS: ACYCLOVIR 400 MG TAB PO SCH ×2 (09:55→20:50)
[2017-11-22] MEDS: CARVEDILOL 3.125 MG TAB PO SCH ×2 (09:55→20:55)
[2017-11-22] MEDS: GABAPENTIN 300 MG CAP PO SCH ×2 (09:55→20:50)
[2017-11-22] MEDS: ENOXAPARIN 60 MG/0.6 ML SYR SC SCH ×2 (09:56→20:51)
--- NOTE | 2017-11-22 11:26 | PCMIDPN ---
Assessment/Plan: 1. Fevers and diarrhea in immunocompromised host approximately 100 days after autologous bone marrow transplant for multiple myeloma: GI pathogen panel negative--holes in testing include Isospora, listeria, and microsporidia, although these entities seem unlikely. Big concern is for underlying CMV ileitis or colitis, and a CMV PCR has been ordered in her blood. That being said, the way to make this diagnosis is generally through a colonoscopy, as a negative CMV PCR does not rule out this diagnosis. Have placed a call to the patient's transplant doctor ([phone]) and am Waiting to hear back. Also attempted to review CT scans, but was told by Radiology to come back in 30 min to an hour, as they did not have time to review them presently. Patient may need a colonoscopy moving forward. Fungal testing also ordered. Will add Aspergillus galactomannan assay, although this seems less likely. 2. Bacteremia status post port removal: Continue ceftriaxone as is. Blood cultures have sterilized. Over 45 min spent with this patient today. Subjective: Patient continues to spike fevers and have diarrhea. Denies abdominal pain, but does not feel hungry. No abdominal cramping or gas. No recent travel within outside [facility]. She has 2 dogs who are healthy. Her has been healthy. She denies any ingestion of unpasteurized milk, juice, or raw foods. No water exposure other than her shower. She denies any blurred vision , skin lesions or other. Her diarrhea is nonbloody. She has already gone 3 times this morning, a large amount. GI pathogen PCR was negative. She states that she last saw her transplant doctor 2 weeks ago and she was"cleared for everything."Her 50 day marrow was negative. Objective: Ceftriaxone 2 g IV daily day 3 T-max 39.6 degrees Vital Signs Temp Pulse Resp BP Pulse Ox 37.8 C 119 H 18 129/87 H 97 11/22/17 10:10 11/22/17 07:24 11/22/17 07:24 11/22/17 07:24 11/22/17 07:24 Microbiology 11/21/17 15:41 Gastrointestinal Tract Panel (PCR) - Final Stool No Organism Detected Laboratory Results 11/21/17 03:55 11/21/17 03:55 11/21/17 11/22/17 11/23/17 05:59 05:59 05:59 Intake Total 0405 336 6289 Output Total 1500 1800 500 Balance -450 -900 550 Blood cultures x2 on 911- Blood cultures November 18 set with strep salivarius and strep Midas Other set is negative TTE negative - Physical Exam General Appearance: no apparent distress, thin EENT: pharynx normal, No thrush Respiratory: lungs clear Cardiac/Chest: regular rate, rhythm, systolic murmur (Soft systolic ejection murmur right upper sternal border) Abdomen: normal bowel sounds, non-tender, soft Skin: No rash, No embolic lesions Neuro/Psych: oriented x 3 ICD10 Worksheet Patient Problems: Problems Problem Status Onset Bronchitis Acute Fever Acute Multiple myeloma Acute Chest pain Acute Pulmonary embolism Acute Thrombocytopenia Acute
[2017-11-22] MEDS ORDERED: LOPERAMIDE HCL 2 MG CAP PO PRN (12:09)
[2017-11-22] MEDS ORDERED: LOPERAMIDE HCL 2 MG CAP PO ONE (12:15)
--- NOTE | 2017-11-22 12:48 | HOSPPROG ---
Hospitalist Progress Note Assessment/Plan: 71 yo F w/ hx of MM s/p BMT 07/2017 and FVL on warfarin presents with fever found to have Strep Bacteremia . Streptococcus Bacteremia - fevers persist, Tmax 39.6. Cx from port growing strep mitis and strep salivarius, s/p PORT removal. Discussed with ID. - Continue Ceftriaxone Diarrhea - GI path panel negative. 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 - ID may initiate valgancyclovir tx after discussion with transplant team - Imodium ok Hypotension - may be related to volume loss from diarrhea, poor oral intake - hold lisinopril - start gentle IVF's to maintain hydration Hx of MM - s/p BMT in July of 2017; recent bone marrow biopsy revealed no evidence of disease. She is no longer on immunosuppressive medication. - Continue acyclovir, bactrim pplx - ID reaching out to transplant team at [facility] Hx FVL - With numerous clotting events, most recently earlier this year. INR remains sub-therapeutic - Cont Lovenox bridge until INR >1.8 - Continue warfarin, pharmacy dosing - Monitor daily INR Diet - Regular Code - Full Ppx - Lovenox Dispo - cont inpt Subjective: Pt continues to have diarrhea. Still fevering. She is fatigued. Denies abdominal pain, N/V. Taking some po. Weak. Objective: Vital Signs Temp Pulse Resp BP Pulse Ox 37.0 C 89 16 86/52 L 94 11/22/17 11:57 11/22/17 11:57 11/22/17 11:57 11/22/17 11:57 11/22/17 11:57 Microbiology 11/21/17 15:41 Gastrointestinal Tract Panel (PCR) - Final Stool No Organism Detected Laboratory Results 11/21/17 03:55 11/21/17 03:55 11/21/17 11/22/17 11/23/17 05:59 05:59 05:59 Intake Total 6851 007 8053 Output Total 1500 1800 500 Balance -450 -900 550 PT 16.8 SEC (12.0-15.0) H 11/22/17 05:09 INR 1.34 (0.83-1.16) H 11/22/17 05:09 - Physical Exam Constitutional: no apparent distress Eyes: PERRL Ears, Nose, Mouth, Throat: moist mucous membranes Cardiovascular: regular rate and rhythym Respiratory: no respiratory distress Gastrointestinal: normoactive bowel sounds, soft, non-tender abdomen Skin: warm Musculoskeletal: full muscle strength Neurologic: AAOx3 Psychiatric: interacting appropriately ICD10 Worksheet Patient Problems: Problems Problem Status Onset Bronchitis Acute Fever Acute Multiple myeloma Acute Chest pain Acute Pulmonary embolism Acute Thrombocytopenia Acute
[2017-11-22] MEDS ORDERED: NS 500 ML IV ONE (13:21)
[2017-11-22] MEDS ORDERED: WARFARIN SODIUM 3 MG TAB PO SCH (16:00)
[2017-11-22] MEDS: NS W/ 20 KCl/L 1,000 ML IV SCH (16:44)
[2017-11-22] MEDS: LISINOPRIL 2.5 MG TAB PO SCH (16:48)
[2017-11-22] MEDS: VITAMIN B COMPLEX 1 EA CAP/TAB PO SCH (20:45)
[2017-11-22] MEDS: PANTOPRAZOLE SODIUM 40 MG TAB PO SCH (20:50)
[2017-11-23] MEDS: ACETAMINOPHEN 325 MG TAB PO PRN ×2 (00:36→08:37)
[2017-11-23] MEDS: NS W/ 20 KCl/L 1,000 ML IV SCH ×2 (01:30→12:56)
[2017-11-23 04:52] LABS: INR 1.66 (0.83-1.16); PROTIME(PATIENT) 19.7 SEC (12.0-15.0)
[2017-11-23] MEDS: CARVEDILOL 3.125 MG TAB PO SCH (08:38)
[2017-11-23] MEDS: GABAPENTIN 300 MG CAP PO SCH (08:38)
[2017-11-23] MEDS: ACYCLOVIR 400 MG TAB PO SCH (08:38)
[2017-11-23] MEDS: SULFAMETHOX/TMP 800/160 MG 1 TAB PO SCH (08:38)
[2017-11-23] MEDS: ENOXAPARIN 60 MG/0.6 ML SYR SC SCH (08:39)
[2017-11-23] MEDS ORDERED: MAGNESIUM CITRATE 300 ML BOTTLE PO STA (09:14)
--- NOTE | 2017-11-23 09:16 | HOSPPROG ---
Hospitalist Progress Note Assessment/Plan: 71 yo F w/ hx of MM s/p BMT 07/2017 and FVL on warfarin presents with fever found to have Strep Bacteremia . Streptococcus Bacteremia - fevers persist, Tmax 40 overnight. Cx from port growing strep mitis and strep salivarius, s/p PORT removal. Repeat BCx's ngtd - Continue Ceftriaxone Diarrhea - GI path panel negative, other studies pending per ID. 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 - ID will talk with transplant team - discussed with GI re: colonoscopy for biopsy. However, she already had lovenox this am. Will hold this and coumadin today. - Imodium ok Hypotension - may be related to volume loss from diarrhea, poor oral intake - serum cortisol a bit low though BP's improved, will defer steroids for now but consider HC if hypotension an ongoing issue - cont to hold lisinopril - cont IVF's until taking better po (NPO this am) Hx of MM - s/p BMT in July of 2017; recent bone marrow biopsy revealed no evidence of disease. She is no longer on immunosuppressive medication. - Continue acyclovir, bactrim pplx - ID reaching out to transplant team at [facility] Hx FVL - With numerous clotting events, most recently earlier this year. INR remains sub-therapeutic - Cont Lovenox bridge until INR >1.8 (hold tonight and tomorrow am for possible c-scope) - Hold coumadin for possible c-scope tomorrow (INR 1.6 today) - Monitor daily INR Diet - Regular Code - Full Ppx - Lovenox Dispo - cont inpt Subjective: Pt febrile this am, shivering. Had ongoing diarrhea overnight despite imodium. No CP, SOB, cough, or abdominal pain. Taking small amounts of po. Objective: Vital Signs Temp Pulse Resp BP Pulse Ox 38.2 C 111 H 12 116/69 98 11/23/17 09:05 11/23/17 08:38 11/23/17 08:25 11/23/17 08:38 11/23/17 08:25 Laboratory Results 11/23/17 04:18 11/23/17 04:18 11/22/17 11/23/17 11/24/17 05:59 05:59 05:59 Intake Total 900 2200 Output Total 1800 1300 Balance -900 900 PT 19.7 SEC (12.0-15.0) H 11/23/17 04:18 INR 1.66 (0.83-1.16) H 11/23/17 04:18 - Physical Exam Constitutional: no apparent distress Eyes: PERRL Ears, Nose, Mouth, Throat: moist mucous membranes Cardiovascular: regular rate and rhythym Respiratory: no respiratory distress Gastrointestinal: normoactive bowel sounds, soft, non-tender abdomen Skin: warm Musculoskeletal: full muscle strength Neurologic: AAOx3 Psychiatric: interacting appropriately ICD10 Worksheet Patient Problems: Problems Problem Status Onset Bronchitis Acute Fever Acute Multiple myeloma Acute Chest pain Acute Pulmonary embolism Acute Thrombocytopenia Acute
--- NOTE | 2017-11-23 09:56 | PCMIDPN ---
Assessment/Plan: 1. Fevers and diarrhea in immunocompromised host approximately 100 days after autologous bone marrow transplant for multiple myeloma: Please see subjective. The patient needs a colonoscopy for further evaluation of possible CMV colitis, verses GVHD versus other infectious etiology. She will be transferred to [facility] today. 2. Bacteremia status post port removal: Continue ceftriaxone as is. Blood cultures have sterilized. Over 35 min spent with this patient today, conversing with the patient's transplant physician, and helping to coordinate transfer. Subjective: Long conversation with patient's primary transplant oncologist, . Patient is indeed CMV IgG positive. Related concerns about patient's diarrhea and ongoing fevers. We talked about the fact that this could be CMV colitis, HHV 6, adenovirus, not picked up by GI PCR, or potentially GVHD. Ultimately, we decided it would be in the patient's best interest to have her transferred to [facility] for further evaluation and treatment. Her colonoscopy which we had planned for today is on hold in the setting of the patient having received Lovenox. Conveyed this to Dr. Kirby as well. He accepts transfer. I then proceeded to have a conversation with the patient and her , who agree with transfer. Objective: Vital Signs Ceftriaxone 2 g IV daily day 4 T-max 40 degrees Temp Pulse Resp BP Pulse Ox 38.2 C 111 H 12 116/69 98 11/23/17 09:05 11/23/17 08:38 11/23/17 08:25 11/23/17 08:38 11/23/17 08:25 Laboratory Results 11/23/17 04:18 11/23/17 04:18 11/22/17 11/23/17 11/24/17 05:59 05:59 05:59 Intake Total 900 2200 Output Total 1800 1300 Balance -900 900 Blood cultures x2 November 20 no growth - Physical Exam General Appearance: cachetic ICD10 Worksheet Patient Problems: Problems Problem Status Onset Bronchitis Acute Fever Acute Multiple myeloma Acute Chest pain Acute Pulmonary embolism Acute Thrombocytopenia Acute
--- NOTE | 2017-11-23 10:47 | GDS ---
DATE OF ADMISSION: 11/18/2017 DATE OF DISCHARGE: 11/23/2017 DISCHARGE DIAGNOSES: 1. Streptococcal bacteremia. 2. New onset diarrhea. 3. Persistent fevers. 4. Hypotension, volume depletion and/or adrenal insufficiency plus infectious concern 5. History of multiple myeloma, status post bone marrow transplant in July of 2017, with recent bone marrow biopsy negative for myeloma cells. 6. History of factor V Leiden. 7. Chronic anticoagulation, currently on bridging therapy due to subtherapeutic INR on Coumadin. 8. Chronic anemia. 9. Mild hyponatremia. 10. Metabolic acidosis. CONSULTANTS: 1. Dr. Glenn Bennett, general surgery. 2. Dr. Miguelangel Plummer, infectious disease. HISTORY: For details, please see history and physical dated November 18, 2017. In brief, Ms. Chery is a 71-year-old female with history of multiple myeloma, who underwent bone marrow transplant in July 2017, with a repeat bone marrow biopsy approximately 40 days ago, which was negative for recurrence, presented to the emergency department with fever as high as 104. She had associated body aches, but had no other localized infectious symptoms such as sore throat, cough , shortness of breath, abdominal pain, diarrhea, or dysuria. At the time of admission, she was not on steroids or immunosuppressive medications, nor was she neutropenic. HOSPITAL COURSE: Patient was admitted to the med/surg unit. Her blood cultures grew streptococcal salivarius and streptococcal mitis. She was initially treated with Ancef. This was transitioned to IV ceftriaxone which has been continued. Her repeat blood cultures are no growth to date. Her port was removed by General Surgery. An echocardiogram was performed which was negative for vegetations or valvular abnormalities. Her ejection fraction was 55% with no wall motion abnormalities. Mild mitral regurgitation was noted. She then developed diarrhea with persistent fevers and temps of 40 degrees for > 72 hrs despite negative repeat blood cultures. A GI pathogen panel was negative. Further stool studies remain pending, including encephalitozoon and E bieneusi. Ct chest/abdomen/pelvis was unrevealing for another source of infection. In addition, she has serologic viral studies pending from the [facility]. Concern grew for possible CMV colitis. Consideration was given to colonoscopy. Our Infectious Disease plan consultant discussed the case with her transplant team at [facility], and although her transplant was autologous, there was some concern for [id number] disease. In addition, she did receive a dose of Lovenox this morning and this will delay colonoscopy. In addition, she has microsporidium and A galactomannan antigen pending. On exam this morning, she is rigoring. She has had no abdominal pain, nausea, or vomiting. She has had some intermittent hypotension, which may be related to volume depletion in the setting of ongoing diarrhea. A serum cortisol was 7.2. Prior to transfer, SBP dropped to 78. AM cortisol was low at 7 and I suspect adrenal insufficiency. Will give IV hydrocortisone now plus NS fluid bolus. Holding Lisinopril and Coreg. After ongoing discussions with specialty care, including Infectious Disease and transplant service, patient will be transferred to [facility] for ongoing management by her transplant team and probable colonoscopy. Her INR this morning is 1.6, and again she did receive Lovenox 50 mg subcutaneous at 9 a.m. on the day of transfer. Of note, she is anticoagulated for history of factor V Leiden with a prior history of clots. DISPOSITION: Patient is discharged to transfer to [facility] transplant service in stable condition. Accepting physician is Dr. Kirby. DISCHARGE MEDICATIONS: 1. Ceftriaxone 2 g IV daily. 2. Morphine IR 15 mg p.o. q.4 hours p.r.n. 3. Lovenox 50 mg subcutaneous b.i.d., last dose was November 23, at 9 a.m. 4. Gabapentin 300 mg p.o. b.i.d. 5. Carvedilol 3.125 mg p.o. b.i.d. Held. 6. Lisinopril 2.5 mg p.o. daily. This has been held during this hospitalization due to hypotension. 7. Omeprazole 20 mg p.o. daily. 8. Potassium 10 mEq p.o. daily. 9. Bactrim 1 tab p.o. Sunday, Sunday, Sunday. 10. Warfarin dosing per Pharmacy. Her last dose of Coumadin was November 22 , at 1600. It was 9 mg. 11. Acyclovir 800 mg p.o. b.i.d. 12. Vitamin D 3000 units p.o. daily. 13. Her granisetron has been discontinued. /[id number]/MODL MTDD
[2017-11-23] MEDS ORDERED: NS 500 ML IV ONE (11:45)
[2017-11-23] MEDS ORDERED: HYDROCORTISONE 100 MG/2 ML VIAL IVP ONE (11:45)
[2017-11-23] MEDS: VITAMIN B COMPLEX 1 EA CAP/TAB PO SCH (13:24)
--- NOTE | 2017-11-23 14:17 | SOAPPROG ---
SOAP Progress Note Assessment/Plan: Assessment/Plan: Pack left port site with hydrofera blue ready. Change 2x per week. Change outer allevyn PRN Objective: Vital Signs Temp Pulse Resp BP Pulse Ox 36.8 C 87 12 91/65 L 97 11/23/17 13:26 11/23/17 13:26 11/23/17 13:26 11/23/17 13:26 11/23/17 13:26 Laboratory Results 11/23/17 04:18 11/23/17 04:18 11/22/17 11/23/17 11/24/17 05:59 05:59 05:59 Intake Total 900 2200 1164 Output Total 1800 1300 Balance -698 428 9731 PT 19.7 SEC (12.0-15.0) H 11/23/17 04:18 INR 1.66 (0.83-1.16) H 11/23/17 04:18 ICD10 Worksheet Patient Problems: Problems Problem Status Onset Bronchitis Acute Fever Acute Multiple myeloma Acute Chest pain Acute Pulmonary embolism Acute Thrombocytopenia Acute
[2017-11-23 15:27] VITALS: BP 107/71
== END 2017-11-23 15:40 | disposition short-term general hospital (02) | DRG 315 ==
LOC: F1N 23:28 → OBSVTOIN 11-19 17:38
PROVIDERS: ADMIT Student in an Organized Health Care Education/Training Program; ATTEND Student in an Organized Health Care Education/Training Program
PROC: 0JPT0WZ Removal of Totally Implantable Vascular Access Device from Trunk Subcutaneous Tissue and Fascia, Open Approach (ICD-10-PCS; principal; 2017-11-19)
DX: T82.7XXA Infection and inflammatory reaction due to other cardiac and vascular devices, implants and grafts, initial encounter (principal); R78.81 Bacteremia; Z94.81 Bone marrow transplant status; E87.1 Hypo-osmolality and hyponatremia; C90.01 Multiple myeloma in remission; E87.2 Acidosis; R19.7 Diarrhea, unspecified; B95.4 Other streptococcus as the cause of diseases classified elsewhere; I95.9 Hypotension, unspecified; Z79.01 Long term (current) use of anticoagulants; D53.9 Nutritional anemia, unspecified
CPT/HCPCS: 86635-90; 87385-90; 87497-90; G0378; J0690; J0696; J1650; J1720; Q9967

== ENCOUNTER 2018-04-11 13:41 | Day surgery (SDC) | payer OTHER ==
[2018-04-11] MEDS ORDERED: LIDOCAINE 1% 2 ML INJ ID PRN (14:25)
[2018-04-11] MEDS ORDERED: ALBUTEROL 3 ML DEYVIAL IH ONE (14:25)
[2018-04-11] MEDS ORDERED: ALBUTEROL 3 ML DEYVIAL ONE (14:29)
[2018-04-11] MEDS ORDERED: LIDOCAINE 1% 2 ML INJ ONE (14:29)
[2018-04-11] MEDS ORDERED: LR 1,000 ML IV ONE (14:42)
[2018-04-11] MEDS ORDERED: BENZOCAINE UNIT DOSE SPRAY HURRICAINE MM ONE (15:42)
[2018-04-11] MEDS ORDERED: LIDOCAINE 1% 300 MG/30 ML SDV ONE (15:42)
[2018-04-11] MEDS ORDERED: EPINEPHrine 1 MG/ML INJ ONE (16:12)
[2018-04-11] MEDS ORDERED: MIDAZOLAM 2 MG/2 ML VIAL ONE (16:21)
[2018-04-11] MEDS ORDERED: fentaNYL 100 MCG/2 ML INJ ONE (16:21)
[2018-04-11] MEDS ORDERED: NALOXONE HCL 0.4 MG/ML INJ ONE (16:22)
[2018-04-11] MEDS ORDERED: FLUMAZENIL 0.5 MG/5 ML MDV IVP ONE (16:22)
[2018-04-11] MEDS ORDERED: fentaNYL 100 MCG/2 ML INJ IVP ONE (17:00)
[2018-04-11] MEDS ORDERED: MIDAZOLAM 2 MG/2 ML VIAL IVP ONE (17:00)
--- NOTE | 2018-04-11 17:12 | PDPROPOC ---
Sedation Plan of Care Sedation Plan of Care: vital signs stable, mental status noted, patient educated of risks, benefits, alternatives, patient can tolerate sedation ASA Classification: ASA 1 Planned drugs: fentanyl, midazolam Mallampati Score: Class 1 Mallampati Reference Image: Patient passed 3-3-2 rule?: Yes
[2018-04-11 17:16] VITALS: BP 113/74
--- NOTE | 2018-04-11 17:21 | PDGENHP ---
History and Physical History and Physical: The patient is being referred for bronchoscopy with bronchoalveolar lavage. The patient is a 72-year-old who is referred relatively urgently by Marilyn Villalba MD and Infectious Disease for bronchoscopy with bronchoalveolar lavage. She had a stem cell transplant for multiple myeloma in July of 2017. She received chemotherapy prior to the stem-cell transplant. She was treated afterwards with Bactrim which she stopped in January. She has been on acyclovir. She has been followed at [facility]. Over the last month she has had increasing shortness of breath. She has a pulse oximeter and has noted that when she walks up hill without oxygen she can drop to approximately 60%. She is not using oxygen at home. She has not had any fevers or chills. She does not have significant cough. She is not bringing up mucus. She was recently evaluated in [place]. The full evaluation results are unknown to me. A CT scan of the chest has shown reticular nodular infiltrates. Pulmonary function studies or spirometry reportedly are negative. Past medical history is largely negative outside of the multiple myeloma and the stem cell transplant. Chemotherapy for this gave her a transient cardiomyopathy which has resolved by her history. Recent ejection fraction was normal. She is on low-dose lisinopril and carvedilol. Drug allergies none known. She is allergic to peanuts. Social history: , accompanied by her , never smoker. Family history: Noncontributory. Review of systems: 10 point review of systems is negative except as noted above. She has no history of lung disease, exposures, thromboembolic disease, collagen vascular disease. Physical examination reveals a pleasant woman who is resting comfortably in endoscopy. Vital signs within normal limits. She is on room air with saturations of approximately 94%. HEENT is unremarkable for lymphadenopathy or thyromegaly. There is no jugular venous distention. The chest is essentially clear. There may be a few end inspiratory rales in the mid right posterior lung. These are not impressive. There are no rhonchi, no wheezes. Heart is regular in rate and rhythm without significant murmur. There is no gallop. P2 appears normal. There is no organomegaly. Bowel sounds are present. There is no edema. Neurologic examination is intact. Assessment: Increased shortness of breath in a patient status post stem cell transplant for multiple myeloma. Her shortness of breath is associated with hypoxemia and a CT scan of the chest showing some increased reticular nodular changes. Bronchoscopy with BAL is requested. Plan: Bronchoscopy and BAL to be done today. This was discussed with the patient and her . Risks and benefits were discussed. She agrees to proceed.
--- NOTE | 2018-04-11 18:12 | GPN ---
[f rep st] PROCEDURE NOTE DATE OF PROCEDURE: 04/11/2018 PROCEDURE: Bronchoscopy. INDICATION: Increased shortness of breath with an abnormal CT scan showing some reticular nodular ch anges in a patient who is status post stem cell transplant for multiple myeloma. PROCEDURE NOTE: The procedure was done in the endoscopy unit. Informed consent was obtained from th e patient. Appropriate time-out was performed. N95 masks and gowns were worn during the procedure. Topical anesthesia consisted of 5 cc of 4% lidocaine to the posterior oropharynx and approximately 1 5 cc of 1% lidocaine to the upper trachea and tracheobronchial tree. Conscious sedation included 5 m g of Versed and 125 mcg of fentanyl. The fiberoptic bronchoscope was passed via bite block orally into the larynx. The vocal cords were i dentified and cannulated. The bronchoscope was advanced through the trachea and in the lower tracheo bronchial tree bilaterally. All areas were observed to at least the first subsegmental level. Anato my was normal bilaterally. There were no secretions. There were no endobronchial abnormalities or e vidence of extrinsic compression. The mucosa was not significantly erythematous. Bronch alveolar la vage samples were obtained from the right lower lobe, right middle lobe, left lower lobe and left upp er lobe and combined. Samples were sent to the laboratory. There were no complications. Vital signs and oxygen saturations on supplemental oxygen remained stab le throughout the procedure. IMPRESSION: 1. Normal endobronchial anatomy. 2. No evidence of secretions, bronchial erythema or edema. 3. Normal bronchoscopy. /[id number]/MODL
== END 2018-04-11 17:29 | disposition home or self-care (01) ==
LOC: FSGY 13:41
PROVIDERS: ATTEND Internal Medicine Pulmonary Disease
DX: R06.02 Shortness of breath (principal); C90.00 Multiple myeloma not having achieved remission; Z92.21 Personal history of antineoplastic chemotherapy; Z94.84 Stem cells transplant status
CPT/HCPCS: J0171; J2250; J2310; J3010; J7613

== ENCOUNTER 2018-06-11 07:33 | Day surgery (SDC) | payer OTHER ==
[2018-06-11] MEDS ORDERED: FLUMAZENIL 0.5 MG/5 ML MDV IVP PRN (07:42)
[2018-06-11] MEDS ORDERED: MIDAZOLAM 2 MG/2 ML VIAL IVP PRN (07:42)
[2018-06-11] MEDS ORDERED: fentaNYL 100 MCG/2 ML INJ IVP PRN (07:42)
[2018-06-11] MEDS ORDERED: NALOXONE HCL 0.4 MG/ML INJ IVP PRN (07:42)
[2018-06-11] MEDS ORDERED: MEPERIDINE 25 MG/ML SYR IVP PRN (07:42)
[2018-06-11] MEDS ORDERED: NS 1,000 ML IV SCH (07:45)
--- NOTE | 2018-06-11 08:37 | PDGENHP ---
History & Physical Chief Complaint: HAD FILTER PLACED OVER A YEAR AGO. DVT. History of Present Illness: CLOT POST DVT. FILTER PLACED BEFORE LYSIS. Pertinent Past, Social, Family History: CANCER TREATMENT. Relevant Physical Exam: IN NO DISTRESS Cardiorespiratory Assessment: RRR, CTA
--- NOTE | 2018-06-11 08:39 | PDPROPOC ---
Sedation Plan of Care Sedation Plan of Care: vital signs stable, mental status noted (S), patient educated of risks, benefits, alternatives, patient can tolerate sedation ASA Classification: ASA 2 Planned drugs: fentanyl, midazolam Mallampati Score: Class 2 Mallampati Reference Image: Patient passed 3-3-2 rule?: Yes
[2018-06-11 08:47] LABS: INR 0.91 (0.83-1.16); PROTIME(PATIENT) 11.9 SEC (12.0-15.0)
[2018-06-11] MEDS ORDERED: MIDAZOLAM 2 MG/2 ML VIAL ONE (08:59)
[2018-06-11] MEDS ORDERED: fentaNYL 100 MCG/2 ML INJ ONE (08:59)
[2018-06-11] MEDS ORDERED: ACETAMINOPHEN 325 MG TAB PO PRN (09:39)
[2018-06-11] MEDS ORDERED: ONDANSETRON 4 MG/2 ML VIAL IVP PRN (09:39)
--- NOTE | 2018-06-11 09:41 | PDRADPN ---
Radiology Procedure Note Date of Procedure: 06/11/18 Radiologist: Chantale Cohn Anesthesia: IV Sedation Pre-op Diagnosis: h/o dvt Post-op Diagnosis: same Indication: needs filter removal Procedure: filter removal with IVC venogram Finding(s): no clot. filter removed. Inf/Abcess present in the surg proc area at time of surgery?: No
[2018-06-11] MEDS ORDERED: IOPAMIDOL (ISOVUE-300) 100 ML BTL ONE (09:50)
[2018-06-11 10:54] VITALS: BP 103/74
== END 2018-06-11 11:02 | disposition home or self-care (01) ==
LOC: FIMAGING 07:33
PROVIDERS: ATTEND Radiology Diagnostic Radiology
DX: Z86.718 Personal history of other venous thrombosis and embolism (principal); Z79.01 Long term (current) use of anticoagulants; D68.51 Activated protein C resistance; I26.99 Other pulmonary embolism without acute cor pulmonale; C90.00 Multiple myeloma not having achieved remission
CPT/HCPCS: 37193; 75827; 76937; 99152; C1769; C1773; C1892; J1644; J2250; J3010; Q9967